=== PATIENT | female | born 1965 | race Caucasian/White ===

== ENCOUNTER 2021-03-26 19:21 | Inpatient (IN) | payer OTHER, SELFPAY ==
[2021-03-26] VITALS (8 sets, daily range): BP systolic 97–125; BP diastolic 55–80; PULSE 76–92; RESP 12–18; TEMP 36.8; O2SAT 94–99; BMI 24.9
--- NOTE | 2021-03-26 19:44 | PC.NURSE ---
pt states she would step in front of a train to kill herself, pt states I don't want to have seizures referring to withdrawing from alcohol.
--- NOTE | 2021-03-26 19:47 | PC.NURSE ---
pt is laughing and crying during triage.
--- NOTE | 2021-03-26 20:31 | PC.NURSE ---
Patient suddenly wanted to go home. Trying to walk through the [place] to leave and was quickly stopped by myself, nurse, and care management. Nurse got patient to calm down and head back into the room. Once patient calmed down, she became sick, thronging up. Nurse changed patients clothing into a clean gown. started an IV. also laisha labs. patient is very twitchy. Vitals also updated. Personal items placed in a bag outside the room.
--- NOTE | 2021-03-26 20:39 | PC.NURSE ---
Pt appears very intoxicated, unable to walk w/o great wander, very slurred speech. + nausea / dry heaves. Pt had expressed suicidal thoughts as well as depression however is to intoxicated for further evaluation. Escorted back to [facility], changed to [place], 1:1 sitter is at door.
[2021-03-26 20:43] LABS: Add Manual Diff / Slide Review NO; Basophils Absolute Auto 100 /uL (0-100); Basophils Percent Auto 1.6 % (0-2); Eosinophils Absolute Auto 0 /uL (0-450); Eosinophils Percent Auto 0.4 % (2-4); Hemoglobin 11.2 g/dL (12.0-16.0); Lymphocytes Absolute Auto 1100 /uL (1100-4500); Mean Corpuscular HGB Conc 33.9 % (30-36); Mean Corpuscular Hemoglobin 28.7 PG (26-34); Mean Corpuscular Volume 84.8 fL (80-100); Monocytes Absolute Auto 500 /uL (0-900); Monocytes Percent Auto 12.3 % (3-14); Neutrophils Absolute Auto 2500 /uL (1500-7000); Neutrophils Percent Auto 59.7 % (50-75); Platelet Count 366 X10^3/uL (150-400); Red Blood Cell Count 3.89 X10^6/uL (4.0-5.2); Red Cell Distribution Width 19.1 % (11.6-14.8); White Blood Cell Count 4.1 X10^3/uL (4.5-11.0)
--- NOTE | 2021-03-26 20:50 | PC.NURSE ---
patient is nauseas, laying at the edge of the bed. polite for me giving her a another warm blanket.
[2021-03-26] MEDS: ONDANSETRON 4 MG/2 ML INJ IV (20:55)
[2021-03-26] MEDS: PANTOPRAZOLE 40 MG VIAL IV (20:58)
[2021-03-26 21:12] LABS: Acetaminophen < 10 ug/mL (10-30); Alanine Aminotransferase 38 IU/L (<35); Albumin 4.7 g/dL (3.5-5.0); Albumin Globulin Ratio 1.6 (1.0-2.8); Alkaline Phosphatase 95 U/L (38-126); Aspartate Aminotransferase 59 IU/L (14-36); BUN Creatinine Ratio 28.6 (6-22); Bilirubin Total 0.7 mg/dL (0.2-1.3); Blood Urea Nitrogen 16 mg/dL (7-17); Calcium 8.9 mg/dL (8.4-10.2); Carbon Dioxide 20 mmol/L (22-32); Chloride 91 mmol/L (98-107); Estimated Glomerular Filt Rate > 60.0 mL/min (>60); Ethanol (ETOH) 271 mg/dL; Glucose 91 mg/dL (70-100); Lipase 92 U/L (23-300); Salicylate < 1.0 mg/dL (<20); Sodium 125 mmol/L (137-145); Total Protein 7.7 g/dL (6.3-8.2)
[2021-03-26 21:17] LABS: HEMOLYSIS 71 (0-50)
[2021-03-26 21:18] LABS: Potassium 4.5 mmol/L (3.4-5.1)
[2021-03-26 21:52] LABS: Thyroid Stimulating Hormone 4.37 uIU/mL (0.47-4.68)
[2021-03-27] VITALS (22 sets, daily range): BP systolic 91–155; BP diastolic 49–98; PULSE 69–93; RESP 16–20; TEMP 35.9–36.8; O2SAT 94–100; BMI 24.9
--- NOTE | 2021-03-27 00:26 | ED.PSYCH ---
HPI - Psych <Miguel Le DO - Last Filed: 03/27/21 23:28> General Chief Complaint: Psychiatric Symptoms Stated Complaint: wants detox Time Seen by Provider: 03/26/21 19:31 Source: patient Mode of arrival: EMS History of Present Illness HPI Narrative: Patient is a 55-year-old female who is here for evaluation of referral to alcohol detox. She states that she has had a longstanding history of alcohol abuse. She has been to rehab in the past. She has also had seizures in the past secondary to alcohol withdrawal. Over the past 4 days she has been drinking consistently. She also has a history of anxiety and depression has been using her Xanax at home in addition to the alcohol. Earlier this evening she was having suicidal thoughts relating to her drinking and the Xanax use. She called EMS who brought her to the emergency department. She states that she has not tried to hurt herself. She is asking for help with her alcohol abuse. Her last drink was just prior to arrival. Related Data Home Medications Medication Instructions Recorded Confirmed Unobtainable 03/26/21 03/26/21 Allergies Allergy/AdvReac Type Severity Reaction Status Date / Time No Allergy Information Allergy Verified 03/26/21 22:08 Available Review of Systems <DO Zainab Santacruz Last Filed: 03/27/21 23:28> Constitutional Constitutional: Denies headache(s) ENT Ears, Nose, Mouth, and Throat: Denies headache(s) Cardiovascular Comments: No chest pain Respiratory Comments: No shortness of breath Gastrointestinal Comments: No abdominal pain nausea vomiting Musculoskeletal Comments: No joint pain Integumentary/Breasts Comments: No rashes Neurologic Neurologic: Denies headache(s) Psychiatric Comments: Anxiety, suicidal thoughts relating to the alcohol use Hematologic/Lymphatic On Anticoagulants: No Patient History <DO Zainab Santacruz Last Filed: 03/27/21 23:28> Medical History Alcohol abuse Anxiety Depression Family History (Updated 03/27/21 @ 18:16 by Akua Rowe MD) Mother Hypertension Social History (Updated 03/27/21 @ 06:33 by Miguel Le DO) household members: none lives independently: Yes Smoking Status: Never smoker alcohol intake frequency: 3 or more drinks per day Exam <DO Zainab Santacruz Last Filed: 03/27/21 23:28> Initial Vital Signs Initial Vital Signs: Vital Signs Temperature 98.3 F 03/26/21 19:30 Pulse Rate 92 H 03/26/21 19:30 Respiratory Rate 18 03/26/21 19:30 Blood Pressure 125/80 03/26/21 19:30 Pulse Oximetry 99 03/26/21 19:30 Const General: cooperative, comfortable and well developed HENVA Head: normal to inspection and normocephalic Eyes General: appearance normal, both eyes and all related structures Resp Effort & Inspection: normal respiratory effort Cardio Rate: regular rate GI Inspection: normal to inspection Skin General: no rashes or lesions noted Neuro General: patient alert, patient awake and moves all extremities Extrem General: normal to inspection and capillary refill normal Psych Appearance: grossly normal and well kempt <Misti Sanabria, DO - Last Filed: 03/27/21 15:20> Initial Vital Signs Initial Vital Signs: Vital Signs Temperature 98.3 F 03/26/21 19:30 Pulse Rate 92 H 03/26/21 19:30 Respiratory Rate 18 03/26/21 19:30 Blood Pressure 125/80 03/26/21 19:30 Pulse Oximetry 99 03/26/21 19:30 Course <Miguel Le, DO - Last Filed: 03/27/21 23:28> Orders Ordered: Chlordiazepoxide HCl (Chlordiazepoxide 10 Mg Capsule) 50 mg PO Q6HR [facility] Last Admin: 03/27/21 17:46 Dose: 50 mg Documented by: SCARLETT Enoxaparin Sodium (Enoxaparin 40 Mg/0.4 Ml Syringe) 40 mg SUBCUT DAILY [facility] Fluoxetine HCl (Fluoxetine 20 Mg Capsule) 40 mg PO DAILY [facility] Folic Acid (Folic Acid 1 Mg Tablet) 1 mg PO DAILY [facility] Last Admin: 03/27/21 16:39 Dose: 1 mg Documented by: ASHA Sodium Chloride (Normal Saline 0.9%) 1,000 mls @ 100 mls/hr IV CONT [facility] Last Admin: 03/27/21 21:58 Dose: 100 mls/hr Documented by: Infusion: 03/27/21 21:58 Dose: 100 mls/hr Documented by: Admin: 03/27/21 12:45 Dose: 100 mls/hr Documented by: JEANA Lorazepam (Lorazepam 2 Mg/Ml Inj) 0 mg IV CIWAPRN PRN; Protocol PRN Reason: Alcohol Withdrawal Last Admin: 03/27/21 12:30 Dose: 1 mg Documented by: JEANA Lorazepam (Lorazepam 1 Mg Tablet) 0 mg PO CIWAPRN PRN; Protocol PRN Reason: Alcohol Withdrawal Last Admin: 03/27/21 17:00 Dose: 2 mg Documented by: Admin: 03/27/21 14:41 Dose: 1 mg Documented by: JEANA Multivitamins (Multivitamin 1 Tablet) 1 tab PO DAILY [facility] Last Admin: 03/27/21 12:06 Dose: 1 tab Documented by: JEANA Ondansetron HCl (Ondansetron 4 Mg/2 Ml Inj) 4 mg IV Q6HR PRN PRN Reason: Nausea And Vomiting Pantoprazole Sodium (Pantoprazole 40 Mg Packet) 40 mg PO DAILY@0700 [facility] Quetiapine Fumarate (Quetiapine 25 Mg Tablet) 50 mg PO BEDTIME [facility] Last Admin: 03/27/21 21:57 Dose: 50 mg Documented by: ASHA Thiamine HCl (Thiamine 100 Mg Tablet) 100 mg PO DAILY [facility] Stop: 03/30/21 09:01 Last Admin: 03/27/21 16:39 Dose: 100 mg Documented by: ASHA Discontinued Medications Chlordiazepoxide HCl (Chlordiazepoxide 10 Mg Capsule) 10 mg PO NOW ONE Stop: 03/27/21 06:27 Last Admin: 03/27/21 06:38 Dose: 10 mg Documented by: YUNG Chlordiazepoxide HCl (Chlordiazepoxide 25 Mg Capsule) 50 mg PO Q6HR [facility] Last Admin: 03/27/21 12:05 Dose: 50 mg Documented by: JEANA Ondansetron HCl (Ondansetron 4 Mg/2 Ml Inj) 4 mg IV NOW ONE Stop: 03/26/21 20:44 Last Admin: 03/26/21 20:55 Dose: 4 mg Documented by: YUNG Pantoprazole Sodium (Pantoprazole 40 Mg Vial) 40 mg IV NOW ONE Stop: 03/26/21 20:44 Last Admin: 03/26/21 20:58 Dose: 40 mg Documented by: YUNG Phenobarbital (Phenobarbital 65 Mg/Ml Vial) 130 mg IV NOW ONE Stop: 03/27/21 08:34 Last Admin: 03/27/21 08:45 Dose: 130 mg Documented by: AUCELENA Vital Signs Vital signs: Vital Signs - 8 hr 03/27/21 02:30 03/27/21 03:00 03/27/21 03:01 Pulse Rate 73 74 74 Blood Pressure 114/59 L 125/60 Pulse Oximetry 95 96 96 03/27/21 03:30 03/27/21 04:00 03/27/21 04:30 Pulse Rate 78 84 79 Blood Pressure 108/59 L 119/58 L 122/66 Pulse Oximetry 95 95 95 03/27/21 05:00 03/27/21 05:30 03/27/21 06:00 Pulse Rate 69 74 76 Blood Pressure 129/73 130/70 139/73 Pulse Oximetry 100 96 97 03/27/21 06:30 Pulse Rate 76 Blood Pressure 152/76 H Pulse Oximetry 95 <Misti Sanabria, - Last Filed: 03/27/21 15:20> Orders Ordered: Chlordiazepoxide HCl (Chlordiazepoxide 10 Mg Capsule) 50 mg PO Q6HR [facility] Last Admin: 03/27/21 17:46 Dose: 50 mg Documented by: SCARLETT Enoxaparin Sodium (Enoxaparin 40 Mg/0.4 Ml Syringe) 40 mg SUBCUT DAILY [facility] Fluoxetine HCl (Fluoxetine 20 Mg Capsule) 40 mg PO DAILY [facility] Folic Acid (Folic Acid 1 Mg Tablet) 1 mg PO DAILY [facility] Last Admin: 03/27/21 16:39 Dose: 1 mg Documented by: ASHA Sodium Chloride (Normal Saline 0.9%) 1,000 mls @ 100 mls/hr IV CONT [facility] Last Admin: 03/27/21 21:58 Dose: 100 mls/hr Documented by: Infusion: 03/27/21 21:58 Dose: 100 mls/hr Documented by: Admin: 03/27/21 12:45 Dose: 100 mls/hr Documented by: EJANA Lorazepam (Lorazepam 2 Mg/Ml Inj) 0 mg IV CIWAPRN PRN; Protocol PRN Reason: Alcohol Withdrawal Last Admin: 03/27/21 12:30 Dose: 1 mg Documented by: JEMIMAANIN Lorazepam (Lorazepam 1 Mg Tablet) 0 mg PO CIWAPRN PRN; Protocol PRN Reason: Alcohol Withdrawal Last Admin: 03/27/21 17:00 Dose: 2 mg Documented by: Admin: 03/27/21 14:41 Dose: 1 mg Documented by: JEANA Multivitamins (Multivitamin 1 Tablet) 1 tab PO DAILY [facility] Last Admin: 03/27/21 12:06 Dose: 1 tab Documented by: JEANA Ondansetron HCl (Ondansetron 4 Mg/2 Ml Inj) 4 mg IV Q6HR PRN PRN Reason: Nausea And Vomiting Pantoprazole Sodium (Pantoprazole 40 Mg Packet) 40 mg PO DAILY@0700 [facility] Quetiapine Fumarate (Quetiapine 25 Mg Tablet) 50 mg PO BEDTIME [facility] Last Admin: 03/27/21 21:57 Dose: 50 mg Documented by: ASHA Thiamine HCl (Thiamine 100 Mg Tablet) 100 mg PO DAILY [facility] Stop: 03/30/21 09:01 Last Admin: 03/27/21 16:39 Dose: 100 mg Documented by: ASHA Discontinued Medications Chlordiazepoxide HCl (Chlordiazepoxide 10 Mg Capsule) 10 mg PO NOW ONE Stop: 03/27/21 06:27 Last Admin: 03/27/21 06:38 Dose: 10 mg Documented by: YUNG Chlordiazepoxide HCl (Chlordiazepoxide 25 Mg Capsule) 50 mg PO Q6HR [facility] Last Admin: 03/27/21 12:05 Dose: 50 mg Documented by: JEANA Ondansetron HCl (Ondansetron 4 Mg/2 Ml Inj) 4 mg IV NOW ONE Stop: 03/26/21 20:44 Last Admin: 03/26/21 20:55 Dose: 4 mg Documented by: YNUG Pantoprazole Sodium (Pantoprazole 40 Mg Vial) 40 mg IV NOW ONE Stop: 03/26/21 20:44 Last Admin: 03/26/21 20:58 Dose: 40 mg Documented by: YUNG Phenobarbital (Phenobarbital 65 Mg/Ml Vial) 130 mg IV NOW ONE Stop: 03/27/21 08:34 Last Admin: 03/27/21 08:45 Dose: 130 mg Documented by: KEVIN Vital Signs Vital signs: Vital Signs - 8 hr 03/27/21 02:30 03/27/21 03:00 03/27/21 03:01 Pulse Rate 73 74 74 Blood Pressure 114/59 L 125/60 Pulse Oximetry 95 96 96 03/27/21 03:30 03/27/21 04:00 03/27/21 04:30 Pulse Rate 78 84 79 Blood Pressure 108/59 L 119/58 L 122/66 Pulse Oximetry 95 95 95 03/27/21 05:00 03/27/21 05:30 03/27/21 06:00 Pulse Rate 69 74 76 Blood Pressure 129/73 130/70 139/73 Pulse Oximetry 100 96 97 03/27/21 06:30 Pulse Rate 76 Blood Pressure 152/76 H Pulse Oximetry 95 [facility] - Psych <Miguel Sharmagal, DO - Last Filed: 03/27/21 23:28> Lab Data Attestation: I reviewed the patient's lab results. Result diagrams: 03/26/21 20:35 03/27/21 07:47 Labs: Lab Results 03/26/21 03/26/21 03/26/21 Range/Units 20:35 20:35 20:35 WBC 4.1 L (4.5-11.0) X10^3/uL RBC 3.89 L (4.0-5.2) X10^6/uL Hgb 11.2 L (12.0-16.0) g/dL Hct 33.0 L (36-46) % MCV 84.8 (80-100) fL MCH 28.7 (26-34) PG MCHC 33.9 (30-36) % RDW 19.1 H (11.6-14.8) % Plt Count 366 (150-400) X10^3/uL Neut % (Auto) 59.7 (50-75) % Lymph % (Auto) 26.0 (25-40) % Amelia % (Auto) 12.3 (3-14) % Eos % (Auto) 0.4 L (2-4) % Baso % (Auto) 1.6 (0-2) % Neut # (Auto) 2500 (7793-0869) /uL Lymph # (Auto) 1100 (1713-4651) /uL Amelia # (Auto) 500 (0-900) /uL Eos # (Auto) 0 (0-450) /uL Baso # (Auto) 100 (0-100) /uL Sodium 125 L (137-145) mmol/L Potassium 4.5 (3.4-5.1) mmol/L Chloride 91 L (98-107) mmol/L Carbon Dioxide 20 L (22-32) mmol/L BUN 16 (7-17) mg/dL Creatinine 0.56 (0.52-1.04) mg/dL Estimated GFR > 60.0 (>60) mL/min BUN/Creatinine Ratio 28.6 H (6-22) Glucose 91 (70-100) mg/dL Calcium 8.9 (8.4-10.2) mg/dL Total Bilirubin 0.7 (0.2-1.3) mg/dL AST 59 H (14-36) IU/L ALT 38 H (<35) IU/L Alkaline Phosphatase 95 (38-126) U/L Total Protein 7.7 (6.3-8.2) g/dL Albumin 4.7 (3.5-5.0) g/dL Globulin 3.0 (1.7-4.1) g/dL Albumin/Globulin Ratio 1.6 (1.0-2.8) Lipase 92 (23-300) U/L TSH 4.37 (0.47-4.68) uIU/mL Urine Color Urine Appearance Urine pH (4.5-8.0) Ur Specific [place] (1.000-1.035) Urine Protein (Negative) Urine Glucose (UA) (Negative) g/dL Urine Ketones (NEGATIVE) Urine Occult Blood (Negative) Urine Nitrate (Negative) Urine Bilirubin (NEGATIVE) Urine Urobilinogen (0.2) E.U./dL Ur Leukocyte Esterase (NEGATIVE) Urine RBC (0-5/HPF) Urine WBC (0-5/HPF) Ur Squamous Epith Cells (0-5/HPF) Urine Bacteria (None) Hyaline Casts (None) Ur Culture Indicated? Urine Test (Negative) Salicylates < 1.0 (<20) mg/dL U Opiates 300ng/mL cut (Negative) Ur Oxycodone Screen (Negative) Urine Methadone Screen (Negative) Acetaminophen < 10 L (10-30) ug/mL Ur Barbiturates Screen (Negative) U Tricyclic Antidepress (Negative) Ur Phencyclidine Scrn (Negative) Ur Amphetamines Screen (Negative) U Methamphetamines Scrn (Negative) Ur MDMA Scrn (Ecstasy) (Negative) U Benzodiazepines Scrn (Negative) Urine Cocaine Screen (Negative) U Marijuana (THC) Screen (Negative) Ethyl Alcohol 271 H ( - 10) mg/dL SARS-CoV-2 (PCR) (Negative) 03/27/21 03/27/21 03/27/21 Range/Units 00:50 00:50 00:50 WBC (4.5-11.0) X10^3/uL RBC (4.0-5.2) X10^6/uL Hgb (12.0-16.0) g/dL Hct (36-46) % MCV (80-100) fL MCH (26-34) PG MCHC (30-36) % RDW (11.6-14.8) % Plt Count (150-400) X10^3/uL Neut % (Auto) (50-75) % Lymph % (Auto) (25-40) % Amelia % (Auto) (3-14) % Eos % (Auto) (2-4) % Baso % (Auto) (0-2) % Neut # (Auto) (9646-2950) /uL Lymph # (Auto) (7932-7626) /uL Amelia # (Auto) (0-900) /uL Eos # (Auto) (0-450) /uL Baso # (Auto) (0-100) /uL Sodium (137-145) mmol/L Potassium (3.4-5.1) mmol/L Chloride (98-107) mmol/L Carbon Dioxide (22-32) mmol/L BUN (7-17) mg/dL Creatinine (0.52-1.04) mg/dL Estimated GFR (>60) mL/min BUN/Creatinine Ratio (6-22) Glucose (70-100) mg/dL Calcium (8.4-10.2) mg/dL Total Bilirubin (0.2-1.3) mg/dL AST (14-36) IU/L ALT (<35) IU/L Alkaline Phosphatase (38-126) U/L Total Protein (6.3-8.2) g/dL Albumin (3.5-5.0) g/dL Globulin (1.7-4.1) g/dL Albumin/Globulin Ratio (1.0-2.8) Lipase (23-300) U/L TSH (0.47-4.68) uIU/mL Urine Color Yellow Urine Appearance Clear Urine pH 6.0 (4.5-8.0) Ur Specific [place] 1.010 (1.000-1.035) Urine Protein 1+ H (Negative) Urine Glucose (UA) Negative (Negative) g/dL Urine Ketones Negative (NEGATIVE) Urine Occult Blood 1+ H (Negative) Urine Nitrate Negative (Negative) Urine Bilirubin Negative (NEGATIVE) Urine Urobilinogen 0.2 (0.2) E.U./dL Ur Leukocyte Esterase Negative (NEGATIVE) Urine RBC 0-1/hpf (0-5/HPF) Urine WBC 1-5/hpf (0-5/HPF) Ur Squamous Epith Cells 1-5 /hpf (0-5/HPF) Urine Bacteria Few (2-10) H (None) Hyaline Casts 1-5/lpf (None) Ur Culture Indicated? Cult not indicated Urine Test Negative (Negative) Salicylates (<20) mg/dL U Opiates 300ng/mL cut Negative (Negative) Ur Oxycodone Screen Negative (Negative) Urine Methadone Screen Negative (Negative) Acetaminophen (10-30) ug/mL Ur Barbiturates Screen Negative (Negative) U Tricyclic Antidepress Positive H (Negative) Ur Phencyclidine Scrn Negative (Negative) Ur Amphetamines Screen Negative (Negative) U Methamphetamines Scrn Negative (Negative) Ur MDMA Scrn (Ecstasy) Negative (Negative) U Benzodiazepines Scrn Positive H (Negative) Urine Cocaine Screen Negative (Negative) U Marijuana (THC) Screen Negative (Negative) Ethyl Alcohol ( - 10) mg/dL SARS-CoV-2 (PCR) (Negative) 03/27/21 03/27/21 03/27/21 Range/Units 01:43 01:57 07:47 WBC (4.5-11.0) X10^3/uL RBC (4.0-5.2) X10^6/uL Hgb (12.0-16.0) g/dL Hct (36-46) % MCV (80-100) fL MCH (26-34) PG MCHC (30-36) % RDW (11.6-14.8) % Plt Count (150-400) X10^3/uL Neut % (Auto) (50-75) % Lymph % (Auto) (25-40) % Amelia % (Auto) (3-14) % Eos % (Auto) (2-4) % Baso % (Auto) (0-2) % Neut # (Auto) (9200-8816) /uL Lymph # (Auto) (6050-7301) /uL Amelia # (Auto) (0-900) /uL Eos # (Auto) (0-450) /uL Baso # (Auto) (0-100) /uL Sodium 128 L (137-145) mmol/L Potassium 4.4 (3.4-5.1) mmol/L Chloride 94 L (98-107) mmol/L Carbon Dioxide 25 (22-32) mmol/L BUN 11 (7-17) mg/dL Creatinine 0.53 (0.52-1.04) mg/dL Estimated GFR > 60.0 (>60) mL/min BUN/Creatinine Ratio 20.8 (6-22) Glucose 81 (70-100) mg/dL Calcium 9.0 (8.4-10.2) mg/dL Total Bilirubin (0.2-1.3) mg/dL AST (14-36) IU/L ALT (<35) IU/L Alkaline Phosphatase (38-126) U/L Total Protein (6.3-8.2) g/dL Albumin (3.5-5.0) g/dL Globulin (1.7-4.1) g/dL Albumin/Globulin Ratio (1.0-2.8) Lipase (23-300) U/L TSH (0.47-4.68) uIU/mL Urine Color Urine Appearance Urine pH (4.5-8.0) Ur Specific [place] (1.000-1.035) Urine Protein (Negative) Urine Glucose (UA) (Negative) g/dL Urine Ketones (NEGATIVE) Urine Occult Blood (Negative) Urine Nitrate (Negative) Urine Bilirubin (NEGATIVE) Urine Urobilinogen (0.2) E.U./dL Ur Leukocyte Esterase (NEGATIVE) Urine RBC (0-5/HPF) Urine WBC (0-5/HPF) Ur Squamous Epith Cells (0-5/HPF) Urine Bacteria (None) Hyaline Casts (None) Ur Culture Indicated? Urine Test (Negative) Salicylates (<20) mg/dL U Opiates 300ng/mL cut (Negative) Ur Oxycodone Screen (Negative) Urine Methadone Screen (Negative) Acetaminophen (10-30) ug/mL Ur Barbiturates Screen (Negative) U Tricyclic Antidepress (Negative) Ur Phencyclidine Scrn (Negative) Ur Amphetamines Screen (Negative) U Methamphetamines Scrn (Negative) Ur MDMA Scrn (Ecstasy) (Negative) U Benzodiazepines Scrn (Negative) Urine Cocaine Screen (Negative) U Marijuana (THC) Screen (Negative) Ethyl Alcohol 149 H ( - 10) mg/dL SARS-CoV-2 (PCR) Negative (Negative) ECG Data Attestation: I personally reviewed and interpreted this ECG as follows: Interpretation: Sinus rhythm Ventricular rate 81 Normal axis Normal QRS QTC [address] T wave changes MDM Narrative Medical decision making narrative: Patient is alert oriented. Initially alcohol was elevated. She does admit that her suicidal thoughts that she was having were related to her alcohol use in the Xanax use. After being here in the emergency department for period of time she denied any suicidal ideations. She is asking for alcohol rehab. Overnight patient was not having any signs of withdrawal. Approximately 0600 hours in the morning she started feel very anxious. Will give Librium for this. Care turned over to day provider to follow up and disposition <Misti Sanabria, - Last Filed: 03/27/21 15:20> Lab Data Labs: Lab Results 03/26/21 03/26/21 03/26/21 Range/Units 20:35 20:35 20:35 WBC 4.1 L (4.5-11.0) X10^3/uL RBC 3.89 L (4.0-5.2) X10^6/uL Hgb 11.2 L (12.0-16.0) g/dL Hct 33.0 L (36-46) % MCV 84.8 (80-100) fL MCH 28.7 (26-34) PG MCHC 33.9 (30-36) % RDW 19.1 H (11.6-14.8) % Plt Count 366 (150-400) X10^3/uL Neut % (Auto) 59.7 (50-75) % Lymph % (Auto) 26.0 (25-40) % Amelia % (Auto) 12.3 (3-14) % Eos % (Auto) 0.4 L (2-4) % Baso % (Auto) 1.6 (0-2) % Neut # (Auto) 2500 (2650-4060) /uL Lymph # (Auto) 1100 (3171-6375) /uL Amelia # (Auto) 500 (0-900) /uL Eos # (Auto) 0 (0-450) /uL Baso # (Auto) 100 (0-100) /uL Sodium 125 L (137-145) mmol/L Potassium 4.5 (3.4-5.1) mmol/L Chloride 91 L (98-107) mmol/L Carbon Dioxide 20 L (22-32) mmol/L BUN 16 (7-17) mg/dL Creatinine 0.56 (0.52-1.04) mg/dL Estimated GFR > 60.0 (>60) mL/min BUN/Creatinine Ratio 28.6 H (6-22) Glucose 91 (70-100) mg/dL Calcium 8.9 (8.4-10.2) mg/dL Total Bilirubin 0.7 (0.2-1.3) mg/dL AST 59 H (14-36) IU/L ALT 38 H (<35) IU/L Alkaline Phosphatase 95 (38-126) U/L Total Protein 7.7 (6.3-8.2) g/dL Albumin 4.7 (3.5-5.0) g/dL Globulin 3.0 (1.7-4.1) g/dL Albumin/Globulin Ratio 1.6 (1.0-2.8) Lipase 92 (23-300) U/L TSH 4.37 (0.47-4.68) uIU/mL Urine Color Urine Appearance Urine pH (4.5-8.0) Ur Specific [place] (1.000-1.035) Urine Protein (Negative) Urine Glucose (UA) (Negative) g/dL Urine Ketones (NEGATIVE) Urine Occult Blood (Negative) Urine Nitrate (Negative) Urine Bilirubin (NEGATIVE) Urine Urobilinogen (0.2) E.U./dL Ur Leukocyte Esterase (NEGATIVE) Urine RBC (0-5/HPF) Urine WBC (0-5/HPF) Ur Squamous Epith Cells (0-5/HPF) Urine Bacteria (None) Hyaline Casts (None) Ur Culture Indicated? Urine Test (Negative) Salicylates < 1.0 (<20) mg/dL U Opiates 300ng/mL cut (Negative) Ur Oxycodone Screen (Negative) Urine Methadone Screen (Negative) Acetaminophen < 10 L (10-30) ug/mL Ur Barbiturates Screen (Negative) U Tricyclic Antidepress (Negative) Ur Phencyclidine Scrn (Negative) Ur Amphetamines Screen (Negative) U Methamphetamines Scrn (Negative) Ur MDMA Scrn (Ecstasy) (Negative) U Benzodiazepines Scrn (Negative) Urine Cocaine Screen (Negative) U Marijuana (THC) Screen (Negative) Ethyl Alcohol 271 H ( - 10) mg/dL SARS-CoV-2 (PCR) (Negative) 03/27/21 03/27/21 03/27/21 Range/Units 00:50 00:50 00:50 WBC (4.5-11.0) X10^3/uL RBC (4.0-5.2) X10^6/uL Hgb (12.0-16.0) g/dL Hct (36-46) % MCV (80-100) fL MCH (26-34) PG MCHC (30-36) % RDW (11.6-14.8) % Plt Count (150-400) X10^3/uL Neut % (Auto) (50-75) % Lymph % (Auto) (25-40) % Amelia % (Auto) (3-14) % Eos % (Auto) (2-4) % Baso % (Auto) (0-2) % Neut # (Auto) (4324-2691) /uL Lymph # (Auto) (8538-8796) /uL Amelia # (Auto) (0-900) /uL Eos # (Auto) (0-450) /uL Baso # (Auto) (0-100) /uL Sodium (137-145) mmol/L Potassium (3.4-5.1) mmol/L Chloride (98-107) mmol/L Carbon Dioxide (22-32) mmol/L BUN (7-17) mg/dL Creatinine (0.52-1.04) mg/dL Estimated GFR (>60) mL/min BUN/Creatinine Ratio (6-22) Glucose (70-100) mg/dL Calcium (8.4-10.2) mg/dL Total Bilirubin (0.2-1.3) mg/dL AST (14-36) IU/L ALT (<35) IU/L Alkaline Phosphatase (38-126) U/L Total Protein (6.3-8.2) g/dL Albumin (3.5-5.0) g/dL Globulin (1.7-4.1) g/dL Albumin/Globulin Ratio (1.0-2.8) Lipase (23-300) U/L TSH (0.47-4.68) uIU/mL Urine Color Yellow Urine Appearance Clear Urine pH 6.0 (4.5-8.0) Ur Specific [place] 1.010 (1.000-1.035) Urine Protein 1+ H (Negative) Urine Glucose (UA) Negative (Negative) g/dL Urine Ketones Negative (NEGATIVE) Urine Occult Blood 1+ H (Negative) Urine Nitrate Negative (Negative) Urine Bilirubin Negative (NEGATIVE) Urine Urobilinogen 0.2 (0.2) E.U./dL Ur Leukocyte Esterase Negative (NEGATIVE) Urine RBC 0-1/hpf (0-5/HPF) Urine WBC 1-5/hpf (0-5/HPF) Ur Squamous Epith Cells 1-5 /hpf (0-5/HPF) Urine Bacteria Few (2-10) H (None) Hyaline Casts 1-5/lpf (None) Ur Culture Indicated? Cult not indicated Urine Test Negative (Negative) Salicylates (<20) mg/dL U Opiates 300ng/mL cut Negative (Negative) Ur Oxycodone Screen Negative (Negative) Urine Methadone Screen Negative (Negative) Acetaminophen (10-30) ug/mL Ur Barbiturates Screen Negative (Negative) U Tricyclic Antidepress Positive H (Negative) Ur Phencyclidine Scrn Negative (Negative) Ur Amphetamines Screen Negative (Negative) U Methamphetamines Scrn Negative (Negative) Ur MDMA Scrn (Ecstasy) Negative (Negative) U Benzodiazepines Scrn Positive H (Negative) Urine Cocaine Screen Negative (Negative) U Marijuana (THC) Screen Negative (Negative) Ethyl Alcohol ( - 10) mg/dL SARS-CoV-2 (PCR) (Negative) 03/27/21 03/27/21 03/27/21 Range/Units 01:43 01:57 07:47 WBC (4.5-11.0) X10^3/uL RBC (4.0-5.2) X10^6/uL Hgb (12.0-16.0) g/dL Hct (36-46) % MCV (80-100) fL MCH (26-34) PG MCHC (30-36) % RDW (11.6-14.8) % Plt Count (150-400) X10^3/uL Neut % (Auto) (50-75) % Lymph % (Auto) (25-40) % Amelia % (Auto) (3-14) % Eos % (Auto) (2-4) % Baso % (Auto) (0-2) % Neut # (Auto) (0938-7956) /uL Lymph # (Auto) (2249-0214) /uL Amelia # (Auto) (0-900) /uL Eos # (Auto) (0-450) /uL Baso # (Auto) (0-100) /uL Sodium 128 L (137-145) mmol/L Potassium 4.4 (3.4-5.1) mmol/L Chloride 94 L (98-107) mmol/L Carbon Dioxide 25 (22-32) mmol/L BUN 11 (7-17) mg/dL Creatinine 0.53 (0.52-1.04) mg/dL Estimated GFR > 60.0 (>60) mL/min BUN/Creatinine Ratio 20.8 (6-22) Glucose 81 (70-100) mg/dL Calcium 9.0 (8.4-10.2) mg/dL Total Bilirubin (0.2-1.3) mg/dL AST (14-36) IU/L ALT (<35) IU/L Alkaline Phosphatase (38-126) U/L Total Protein (6.3-8.2) g/dL Albumin (3.5-5.0) g/dL Globulin (1.7-4.1) g/dL Albumin/Globulin Ratio (1.0-2.8) Lipase (23-300) U/L TSH (0.47-4.68) uIU/mL Urine Color Urine Appearance Urine pH (4.5-8.0) Ur Specific [place] (1.000-1.035) Urine Protein (Negative) Urine Glucose (UA) (Negative) g/dL Urine Ketones (NEGATIVE) Urine Occult Blood (Negative) Urine Nitrate (Negative) Urine Bilirubin (NEGATIVE) Urine Urobilinogen (0.2) E.U./dL Ur Leukocyte Esterase (NEGATIVE) Urine RBC (0-5/HPF) Urine WBC (0-5/HPF) Ur Squamous Epith Cells (0-5/HPF) Urine Bacteria (None) Hyaline Casts (None) Ur Culture Indicated? Urine Test (Negative) Salicylates (<20) mg/dL U Opiates 300ng/mL cut (Negative) Ur Oxycodone Screen (Negative) Urine Methadone Screen (Negative) Acetaminophen (10-30) ug/mL Ur Barbiturates Screen (Negative) U Tricyclic Antidepress (Negative) Ur Phencyclidine Scrn (Negative) Ur Amphetamines Screen (Negative) U Methamphetamines Scrn (Negative) Ur MDMA Scrn (Ecstasy) (Negative) U Benzodiazepines Scrn (Negative) Urine Cocaine Screen (Negative) U Marijuana (THC) Screen (Negative) Ethyl Alcohol 149 H ( - 10) mg/dL SARS-CoV-2 (PCR) Negative (Negative) MDM Narrative Medical decision making narrative: Patient is alert oriented. Initially alcohol was elevated. She does admit that her suicidal thoughts that she was having were related to her alcohol use in the Xanax use. After being here in the emergency department for period of time she denied any suicidal ideations. She is asking for alcohol rehab. Overnight patient was not having any signs of withdrawal. Approximately 0600 hours in the morning she started feel very anxious. Will give Librium for this. Care turned over to day provider to follow up and disposition The patient is signed out to me by Dr. Le seen evaluated her myself. She is quite anxious and having loss of shaking. She denies any hallucination but overall does not feel well and is quite restless. She is was just given a dose of Librium however I will also give her a dose of phenobarbital to see if it helps. It says she has a history of alcohol withdrawal seizures. She certainly is not medically cleared to go to detox at this time. She is no longer suicidal. Dr. rowe updated patient's symptoms test results have place Discharge Plan Departure Patient Disposition: Admitted As Inpatient Clinical Impression: Alcohol abuse with withdrawal Admit Date/Time: 03/27/21 10:33 Admit Provider: Akua Rowe
[2021-03-27 01:00] LABS: Appearance Urine UA CLEAR; Bilirubin Urine UA NEGATIVE (NEGATIVE); Color Urine UA YELLOW; Glucose Urine UA NEGATIVE (Negative); Ketones Urine UA NEGATIVE (NEGATIVE); Leukocyte Esterase Urine UA NEGATIVE (NEGATIVE); Nitrite Urine UA NEGATIVE (Negative); Occult Blood Urine UA 1+ (Negative); Protein Urine UA 1+ (Negative); Urobilinogen Urine UA 0.2 E.U./dL (0.2)
[2021-03-27 01:05] LABS: UR Morphine/Opiate cutoff 300 Negative (Negative); Ur Creatinine Normal (Normal); Ur Specific Gravity Normal (Normal); Urine Amphetamines Negative (Negative); Urine Barbiturates Negative (Negative); Urine Benzodiazepines Positive (Negative); Urine Cocaine Negative (Negative); Urine MDMA Negative (Negative); Urine Methadone Negative (Negative); Urine Methamphetamines Negative (Negative); Urine Oxycodone Negative (Negative); Urine Phencyclidine Negative (Negative); Urine Tetrahydrocannabinol Negative (Negative); Urine Tricyclic Antidepressant Positive (Negative); Urine pH Normal (Normal)
[2021-03-27 01:07] LABS: Pregnancy Test Urine Negative (Negative)
[2021-03-27 01:10] LABS: RBC Urine 0-1/HPF (0-5/HPF); Squamous Epithelial Cell Urine 1-5 /HPF (0-5/HPF); WBC Urine 1-5/HPF (0-5/HPF)
[2021-03-27 01:11] LABS: Bacteria Urine Few (2-10); Culture Indicated Urine Cult Not Indicated; Hyaline Casts Urine 1-5/LPF
[2021-03-27 02:00] LABS: Ethanol (ETOH) 149 mg/dL
--- NOTE | 2021-03-27 02:20 | PC.NURSE ---
After DR Le's re-exam with patient he gave verbal order to stop suicide precautions.
[2021-03-27 02:23] LABS: COVID19 -Nasal RAPID Negative (Negative)
[2021-03-27] MEDS: chlordiazePOXIDE 10 MG CAPSULE PO (06:38)
[2021-03-27 08:07] LABS: BUN Creatinine Ratio 20.8 (6-22); Blood Urea Nitrogen 11 mg/dL (7-17); Carbon Dioxide 25 mmol/L (22-32); Chloride 94 mmol/L (98-107); Estimated Glomerular Filt Rate > 60.0 mL/min (>60); Glucose 81 mg/dL (70-100); HEMOLYSIS < 15 (0-50); Potassium 4.4 mmol/L (3.4-5.1); Sodium 128 mmol/L (137-145)
[2021-03-27] MEDS: PHENobarbital 65 MG/ML VIAL 130 MG IV (08:45)
--- NOTE | 2021-03-27 10:57 | CM.SWNOTE ---
LIQUOR RUNNER Note LIQUOR RUNNER consult requested to assess needs of this 55 yo female, presents intoxicated last evening, BAL 271. Patient requests referral to detox, states she has been to alcohol treatment in the past. Met w/patient this morning, patient awake and alert, shaking heavily and states she is concerned about w/d seizures, as she has had them in the past. Patient further explains this is why I knew I couldn't do it (detox) at home Patient admits to drinking approx. a full bottle of Whiskey daily for weeks after a long period of sobriety. Patient also take Xanax for chronic anxiety and depression, states I went through those a little too quickly this time. Patient admitted to thoughts of SI to ED staff yesterday however no longer endorses SI or SA This LIQUOR RUNNER stops assessment to speak w/ED provider Dr Sanabria, whom now feels patient is appropriate for admission to the acute care floor for medical management through her withdrawal, due to her h/o w/d related seizures. DCP/LIQUOR RUNNER team will follow closely for assessment of need when appropriate on the acute care floor. SERGIO
[2021-03-27] MEDS: chlordiazePOXIDE 25 MG CAPSULE 50 MG PO (12:05)
[2021-03-27] MEDS: MULTIVITAMIN 1 TABLET 1 TAB PO (12:06)
[2021-03-27] MEDS: LORazepam 2 MG/ML INJ IV (12:30)
[2021-03-27] MEDS: SODIUM CHLORIDE 0.9% 1,000 ML 100 ML IV ×2 (12:45→21:58)
[2021-03-27] MEDS: LORazepam 1 MG TABLET PO ×2 (14:41→17:00)
--- NOTE | 2021-03-27 14:58 | PC.NURSE ---
Pt A&Ox3, settled into room up from ED. VSS, afebrile on RA. CIWA score initially 8, medicated with 1mg IV lorazepam with good effect. Scheduled medications administered. MD at bedside this a.m. Pt reports light sensitivity, trembling, anxious and slightly diaphoretic. Pt unable to recall last doses of medications or doseages of medications prior to admission as she reports the last two weeks I have just been drinking. She did state that she believes her pharmacy was a [facility], in [facility]. Needing dose of seroquel confirmed.
[2021-03-27] MEDS: THIAMINE 100 MG TABLET PO (16:39)
[2021-03-27] MEDS: FOLIC ACID 1 MG TABLET PO (16:39)
[2021-03-27] MEDS: chlordiazePOXIDE 10 MG CAPSULE 50 MG PO (17:46)
--- NOTE | 2021-03-27 18:13 | P.HP_ITS ---
History of Present Illness History of Present Illness Chief complaint: wants detox Narrative: Patient is a 55-year-old female who was previously living in [place] working for she will [employer] when she moved to [place] 2 weeks ago to work here. Patient reports a history of alcoholism having been in inpatient treatment many years ago. She was hospitalized body urine half ago for acute alcohol withdrawal and DTs. The patient has been drinking a 5th of whiskey for the past 2 weeks. She has been taking Xanax in addition. She has a history of depression and anxiety for which she also takes Prozac and Seroquel. In any event because of her excessive drinking the patient became frightened as she has had previous alcohol withdrawal seizures and she was concerned that she would start seizing again. She presented to the emergency room for detox. Patient was found to be quite tremulous in the ER. She was given phenobarbital in addition to a dose of Librium. She was admitted to the hospital for acute alcohol intoxication, alcohol withdrawal syndrome, and DTs. Patient History Medical History Alcohol abuse Anxiety Depression Family & Social History Family History (Updated 03/27/21 @ 18:16 by Akua Rowe MD) Mother Hypertension Family history unavailable: No Social History: household members none Prior Living Arrangements House lives independently Yes Safety & Behavioral: Feels Safe in Current Yes Environment Been Physically Hurt or No Threatened By a Person Suicidal Ideation Description None Suicide Plan Description No Plan Tobacco & Substance use: Smoking Status Never smoker alcohol intake frequency 3 or more drinks per day Meds Home Medications and Allergies Home Medications Medication Instructions Recorded Confirmed Type Unobtainable 03/26/21 03/26/21 History Allergies Allergy/AdvReac Type Severity Reaction Status Date / Time No Allergy Information Allergy Verified 03/26/21 22:08 Available Review of Systems Review of Systems Narrative: Patient reports headache, she has had no nausea or vomiting. She denies any hematemesis or melena. She has no shortness of breath or chest pain. Patient has had no dysuria hematuria pyuria. She denies any joint pains. Patient has significant shaking, she has no jaundice. Further review of systems is negative. Patient reports a 40 lb intentional weight loss. Exam Vital Signs (past 8 hours): - 03/27/21 11:10 03/27/21 14:56 03/27/21 15:11 Temperature 98.2 F 97.6 F Pulse Rate 89 93 H 93 H Respiratory Rate 16 16 16 Blood Pressure 122/49 L 155/89 H 155/89 H Pulse Oximetry 100 99 03/27/21 15:52 03/27/21 17:40 Temperature Pulse Rate 70 91 H Respiratory Rate 16 20 Blood Pressure 144/75 H 148/96 H Pulse Oximetry Oxygen Delivery Method Room Air Oxygen Flow Rate 0 Narrative Exam Narrative: Ill-appearing female lying in bed with a significant tremor, HENMT Other: HEENT: Normocephalic atraumatic, extraocular muscles are intact, oropharynx is clear with moist mucous membranes, neck is supple, there is no adenopathy or thyromegaly Lungs: Clear to auscultation Cardiac exam: Regular rate and rhythm normal S1-S2 with a soft 2/6 systolic ejection murmur Abdomen: Soft nontender nondistended, liver edge is palpated at 3 finger breaths below the right costal margin, spleen tip is palpated as well, no rebound tenderness, normal board-like rigidity Lower extremities: No edema Neuro exam: Patient is tremulous, cranial nerves are intact, strength is symmetric and equal, sensations grossly intact patient appears to have mild S directed she is not hallucinating at this time. However she is somewhat anxious, Skin exam: Multiple bruising on the lower extremities but no rashes, or edema Psychiatric exam: Patient previously was complaining of BS suicidal, when asked her about this during our exam she states she is no longer suicidal but had drank too much. She is not tearful, has no hallucinations and no delusions, she is calm and able to explain why she is here and what she hopes to gain from this hospitalization. Objective Labs Result Diagrams: 03/26/21 20:35 03/27/21 07:47 Labs: Laboratory Results - last 24 hr 03/26/21 03/26/21 03/26/21 20:35 20:35 20:35 WBC 4.1 L RBC 3.89 L Hgb 11.2 L Hct 33.0 L MCV 84.8 MCH 28.7 MCHC 33.9 RDW 19.1 H Plt Count 366 Neut % (Auto) 59.7 Lymph % (Auto) 26.0 [place] % (Auto) 12.3 Eos % (Auto) 0.4 L Baso % (Auto) 1.6 Neut # (Auto) 2500 Lymph # (Auto) 1100 [place] # (Auto) 500 Eos # (Auto) 0 Baso # (Auto) 100 Sodium 125 L Potassium 4.5 Chloride 91 L Carbon Dioxide 20 L BUN 16 Creatinine 0.56 Estimated GFR > 60.0 BUN/Creatinine Ratio 28.6 H Glucose 91 Calcium 8.9 Total Bilirubin 0.7 AST 59 H ALT 38 H Alkaline Phosphatase 95 Total Protein 7.7 Albumin 4.7 Globulin 3.0 Albumin/Globulin Ratio 1.6 Lipase 92 TSH 4.37 Urine Color Urine Appearance Urine pH Ur Specific [place] Urine Protein Urine Glucose (UA) Urine Ketones Urine Occult Blood Urine Nitrate Urine Bilirubin Urine Urobilinogen Ur Leukocyte Esterase Urine RBC Urine WBC Ur Squamous Epith Cells Urine Bacteria Hyaline Casts Ur Culture Indicated? Urine Test Salicylates < 1.0 U Opiates 300ng/mL cut Ur Oxycodone Screen Urine Methadone Screen Acetaminophen < 10 L Ur Barbiturates Screen U Tricyclic Antidepress Ur Phencyclidine Scrn Ur Amphetamines Screen U Methamphetamines Scrn Ur MDMA Scrn (Ecstasy) U Benzodiazepines Scrn Urine Cocaine Screen U Marijuana (THC) Screen Ethyl Alcohol 271 H SARS-CoV-2 (PCR) 03/27/21 03/27/21 03/27/21 00:50 00:50 00:50 WBC RBC Hgb Hct MCV MCH MCHC RDW Plt Count Neut % (Auto) Lymph % (Auto) [place] % (Auto) Eos % (Auto) Baso % (Auto) Neut # (Auto) Lymph # (Auto) [place] # (Auto) Eos # (Auto) Baso # (Auto) Sodium Potassium Chloride Carbon Dioxide BUN Creatinine Estimated GFR BUN/Creatinine Ratio Glucose Calcium Total Bilirubin AST ALT Alkaline Phosphatase Total Protein Albumin Globulin Albumin/Globulin Ratio Lipase TSH Urine Color Yellow Urine Appearance Clear Urine pH 6.0 Ur Specific [place] 1.010 Urine Protein 1+ H Urine Glucose (UA) Negative Urine Ketones Negative Urine Occult Blood 1+ H Urine Nitrate Negative Urine Bilirubin Negative Urine Urobilinogen 0.2 Ur Leukocyte Esterase Negative Urine RBC 0-1/hpf Urine WBC 1-5/hpf Ur Squamous Epith Cells 1-5 /hpf Urine Bacteria Few (2-10) H Hyaline Casts 1-5/lpf Ur Culture Indicated? Cult not indicated Urine Test Negative Salicylates U Opiates 300ng/mL cut Negative Ur Oxycodone Screen Negative Urine Methadone Screen Negative Acetaminophen Ur Barbiturates Screen Negative U Tricyclic Antidepress Positive H Ur Phencyclidine Scrn Negative Ur Amphetamines Screen Negative U Methamphetamines Scrn Negative Ur MDMA Scrn (Ecstasy) Negative U Benzodiazepines Scrn Positive H Urine Cocaine Screen Negative U Marijuana (THC) Screen Negative Ethyl Alcohol SARS-CoV-2 (PCR) 03/27/21 03/27/21 03/27/21 01:43 01:57 07:47 WBC RBC Hgb Hct MCV MCH MCHC RDW Plt Count Neut % (Auto) Lymph % (Auto) [place] % (Auto) Eos % (Auto) Baso % (Auto) Neut # (Auto) Lymph # (Auto) [place] # (Auto) Eos # (Auto) Baso # (Auto) Sodium 128 L Potassium 4.4 Chloride 94 L Carbon Dioxide 25 BUN 11 Creatinine 0.53 Estimated GFR > 60.0 BUN/Creatinine Ratio 20.8 Glucose 81 Calcium 9.0 Total Bilirubin AST ALT Alkaline Phosphatase Total Protein Albumin Globulin Albumin/Globulin Ratio Lipase TSH Urine Color Urine Appearance Urine pH Ur Specific [place] Urine Protein Urine Glucose (UA) Urine Ketones Urine Occult Blood Urine Nitrate Urine Bilirubin Urine Urobilinogen Ur Leukocyte Esterase Urine RBC Urine WBC Ur Squamous Epith Cells Urine Bacteria Hyaline Casts Ur Culture Indicated? Urine Test Salicylates U Opiates 300ng/mL cut Ur Oxycodone Screen Urine Methadone Screen Acetaminophen Ur Barbiturates Screen U Tricyclic Antidepress Ur Phencyclidine Scrn Ur Amphetamines Screen U Methamphetamines Scrn Ur MDMA Scrn (Ecstasy) U Benzodiazepines Scrn Urine Cocaine Screen U Marijuana (THC) Screen Ethyl Alcohol 149 H SARS-CoV-2 (PCR) Negative Assessment & Plan Assessment & Plan narrative: 1. 55-year-old female admitted to the hospital with acute alcohol intoxication, and evidence to suggest early alcohol withdrawal -patient at high risk for DTs given her prior history of seizures and amount of alcohol consumed -patient has been placed on a CIWA protocol, she will be started on Librium 50 mg q.6 hours, given a national shortage of Librium she likely will need to be transition to an equivalent dose of Valium in addition to her as needed IV and oral Ativan -patient is on seizure protocol and seizure precautions -at this time she does not indicate the desire for inpatient treatment, but would recommend social work consultation to discuss possible treatment 2. Depression -will continue Prozac at 40 mg per day -will continue Seroquel which was previously prescribed 50 mg at HS 3. Anxiety -Xanax on hold -patient will be treated with anxiolytics, Valium and or Ativan for withdrawal which will also treat her anxiety 4. Intentional weight loss -no further follow-up needed 5. Hyponatremia -likely related to excess free water from her significant alcohol intake -will recheck her electrolytes in the morning 6. Patient will be placed on DVT prophylaxis with Lovenox 40 mg subQ daily The patient indicates her parents are her surrogate decision makers. She requests to be a full code and will note that her record accordingly I have confirmed the patient's advanced care plan is present code status is documented in surrogate decision maker is listed I have utilized all available immediate resources to obtain, update, or review the patient's current medications
[2021-03-27] MEDS: QUETIAPINE 25 MG TABLET 50 MG PO (21:57)
--- NOTE | 2021-03-27 22:48 | PC.NURSE ---
Addendum entered by Layne Branch R.N. 03/27/21 22:49: Pt is A&OX4, able to make needs known, CIWA 12 initially with moderate tremors, beads of sweat and moderate headache. medicated with 2m po Ativan with good relief. reassess was CIWA of 6. pt calls appropriately for assistance to BR. urine needed but none since oreder placed. NS @ 100 LFA iv. pt denies current SI and is thankful for the help. No falls or injuries this shift Original Note: Pt is alerty and oriented XZ4
[2021-03-28] MEDS: chlordiazePOXIDE 10 MG CAPSULE 50 MG PO ×2 (00:24→05:25)
[2021-03-28 05:30] VITALS: BP 142/103; PULSE 67; RESP 18; TEMP 36.1; O2SAT 100
--- NOTE | 2021-03-28 05:34 | PC.NURSE ---
Patient rested in bed most of the night with no signs of agitation or anxiety. Patient woke at 0500 to use the bathroom and the patient was asking for Ativan to get more sleep. Patient had a 0600 dose of Librium scheduled. This RN discussed with the patient that we would try the schedule medication and see if that helped her symptoms. Patient agreed and the 0600 dose was given. Patient resting in bed with call light within reach and no other requests at this time.
[2021-03-28 05:54] LABS: Add Manual Diff / Slide Review NO; Basophils Absolute Auto 0 /uL (0-100); Basophils Percent Auto 1.4 % (0-2); Eosinophils Absolute Auto 100 /uL (0-450); Eosinophils Percent Auto 2.4 % (2-4); Hematocrit 36.5 % (36-46); Hemoglobin 11.9 g/dL (12.0-16.0); Lymphocytes Absolute Auto 600 /uL (1100-4500); Lymphocytes Percent Auto 29.2 % (25-40); Mean Corpuscular HGB Conc 32.6 % (30-36); Mean Corpuscular Hemoglobin 28.1 PG (26-34); Mean Corpuscular Volume 86.4 fL (80-100); Monocytes Absolute Auto 400 /uL (0-900); Monocytes Percent Auto 19.2 % (3-14); Neutrophils Absolute Auto 1100 /uL (1500-7000); Neutrophils Percent Auto 47.8 % (50-75); Platelet Count 288 X10^3/uL (150-400); Red Blood Cell Count 4.23 X10^6/uL (4.0-5.2); Red Cell Distribution Width 19.4 % (11.6-14.8); White Blood Cell Count 2.2 X10^3/uL (4.5-11.0)
[2021-03-28 05:59] LABS: Alanine Aminotransferase 35 IU/L (<35); Albumin Globulin Ratio 1.6 (1.0-2.8); Alkaline Phosphatase 81 U/L (38-126); Aspartate Aminotransferase 49 IU/L (14-36); BUN Creatinine Ratio 20.6 (6-22); Bilirubin Total 0.6 mg/dL (0.2-1.3); Blood Urea Nitrogen 13 mg/dL (7-17); Carbon Dioxide 27 mmol/L (22-32); Chloride 101 mmol/L (98-107); Estimated Glomerular Filt Rate > 60.0 mL/min (>60); Globulin 2.5 g/dL (1.7-4.1); Glucose 94 mg/dL (70-100); HEMOLYSIS < 15 (0-50); Potassium 4.2 mmol/L (3.4-5.1); Sodium 132 mmol/L (137-145); Total Protein 6.5 g/dL (6.3-8.2)
[2021-03-28] MEDS: PANTOPRAZOLE 40 MG **PACKET PO (06:45)
[2021-03-28] MEDS: SODIUM CHLORIDE 0.9% 1,000 ML 100 ML IV ×2 (06:49→17:34)
[2021-03-28 07:35] VITALS: BP 132/91; PULSE 64; RESP 14; TEMP 36.6; O2SAT 99
[2021-03-28] MEDS: THIAMINE 100 MG TABLET PO (09:06)
[2021-03-28] MEDS: ENOXAPARIN 40 MG/0.4 ML SYRINGE SUBCUT (09:06)
[2021-03-28] MEDS: FOLIC ACID 1 MG TABLET PO (09:06)
[2021-03-28] MEDS: FLUoxetine 20 MG CAPSULE 40 MG PO (09:06)
[2021-03-28] MEDS: MULTIVITAMIN 1 TABLET 1 TAB PO (09:06)
[2021-03-28 11:28] VITALS: BP 125/78; PULSE 85; RESP 12; TEMP 36.6; O2SAT 97
--- NOTE | 2021-03-28 11:50 | P.PN_ITS ---
Subjective Subjective Date Patient Seen: 03/28/21 Time Patient Seen: 11:50 Interval history: This is a 55-year-old female admitted with alcohol withdrawal. She is still quite shaky today, but feeling much improved. She was able to tolerate a diet. She had a difficult time sleeping last night due to tremors and diaphoresis. Exam Vital Signs (past 8 hours): - 03/28/21 05:30 03/28/21 07:35 Temperature 97.0 F L 97.8 F Pulse Rate 67 64 Respiratory Rate 18 14 Blood Pressure 142/103 H 132/91 H Pulse Oximetry 100 99 Oxygen Delivery Method Room Air Oxygen Flow Rate 0 Narrative Exam Narrative: Exam Narrative: Ill-appearing female lying in bed with a significant tremor, HEENT: Normocephalic atraumatic, extraocular muscles are intact, oropharynx is clear with moist mucous membranes, neck is supple, there is no adenopathy or thyromegaly Lungs: Clear to auscultation Cardiac exam: Regular rate and rhythm normal S1-S2 with a soft 2/6 systolic ejection murmur Abdomen: Soft nontender nondistended. Lower extremities: No edema Neuro exam: Patient is tremulous though improved, minimal tongue fasciculations. cranial nerves are intact, strength is symmetric and equal, sensations grossly intact patient. Skin exam: Multiple bruising on the lower extremities but no rashes, or edema Psychiatric exam: Denies hallucinations, no SI or HI today Objective Labs Result Diagrams: 03/28/21 05:43 03/28/21 05:43 Labs: Laboratory Results - last 24 hr 03/28/21 03/28/21 05:43 05:43 WBC 2.2 L RBC 4.23 Hgb 11.9 L Hct 36.5 MCV 86.4 MCH 28.1 MCHC 32.6 RDW 19.4 H Plt Count 288 Neut % (Auto) 47.8 L Lymph % (Auto) 29.2 [place] % (Auto) 19.2 H Eos % (Auto) 2.4 Baso % (Auto) 1.4 Neut # (Auto) 1100 L Lymph # (Auto) 600 L [place] # (Auto) 400 Eos # (Auto) 100 Baso # (Auto) 0 Sodium 132 L Potassium 4.2 Chloride 101 Carbon Dioxide 27 BUN 13 Creatinine 0.63 Estimated GFR > 60.0 BUN/Creatinine Ratio 20.6 Glucose 94 Calcium 9.0 Total Bilirubin 0.6 AST 49 H ALT 35 H Alkaline Phosphatase 81 Total Protein 6.5 Albumin 4.0 Globulin 2.5 Albumin/Globulin Ratio 1.6 [facility] Medical History Alcohol abuse Anxiety Depression Family History (Updated 03/27/21 @ 18:16 by Akua Rowe MD) Mother Hypertension Social History (Updated 03/27/21 @ 06:33 by Miguel Le DO) household members: none lives independently: Yes Smoking Status: Never smoker Assessment & Plan Assessment & Plan narrative: 1. 55-year-old female admitted to the hospital with acute alcohol intoxication and now withdrawal. -patient at high risk for DTs given her prior history of seizures and amount of alcohol consumed -patient has been placed on a CIWA protocol, she was started on Librium 50 mg q.6 hours, given a national shortage of Librium she likely will need to be transition to an equivalent dose of Valium in addition to her as needed IV and oral Ativan at some point. But can decrease to 30q6 today to try and prolong availability for now. -patient is on seizure protocol and seizure precautions -she would like inpatient treatment she states today, social work to consult. 2. Depression -will continue Prozac at 40 mg per day -will continue Seroquel which was previously prescribed 50 mg at HS 3. Anxiety -Xanax on hold -patient will be treated with anxiolytics, Valium and or Ativan for withdrawal which will also treat her anxiety 4. Intentional weight loss -no further follow-up needed 5. Hyponatremia -likely related to EtOH, has improved thus far to 132 since admission. 6. Patient will be placed on DVT prophylaxis with Lovenox 40 mg subQ daily The patient indicates her parents are her surrogate decision makers. She requests to be a full code and will note that her record accordingly I have confirmed the patient's advanced care plan is present code status is documented in surrogate decision maker is listed I have utilized all available immediate resources to obtain, update, or review the patient's current medications
--- NOTE | 2021-03-28 11:55 | PC.NURSE ---
Patient had her dose of librium at 0600, she states that she is feeling better today. She is unsteady on her feet and ambulating with the walker. Ivf infusing through iv, and patient is tolerating this well. CIWA is a 5, as patient is having some hand and arm tremors and she is sweating. Resting now in bed, she will have some more medications at 1200.
[2021-03-28] MEDS: chlordiazePOXIDE 10 MG CAPSULE 30 MG PO ×2 (12:43→17:34)
--- NOTE | 2021-03-28 15:28 | CM.DPC ---
DCP Cont: Per MD, pt currently sleeping and seems to be improving in her withdrawal from ETOH currently and still getting Librium taper. Pt recently moved to [place] about 2 weeks and is working at the [employer]. Pt has hx of depression and anxiety and prescribed medication to assist and has hx of withdrawal from ETOH with seizures and DT's. Pt drinks about a 5th of whiskey a day. SW called [facility] and inquired about bed availability and discussed pt and due to pt's low need for medication management for withdrawal symptoms then their MD would likely not accept since pt is not very acute currently. SW met bedside with pt and explained role and pt quite sleepy but able to answer questions. Pt confirms that she is interested in treatment but clarifies I know what I need to do, I just have to do it and pt firmly states she does not want Inpt [facility] tx but is very appreciative of outpt [facility] resources. SW printed off but ran out of time to give to pt bedside today. SW discussed checking in with her tomorrow to confirm she still does not want Inpt tx and pt states because I'm new to my job I just can't do Inpt tx at this time and I think I will do well with outpt tx services. Plan: SW to follow closely for providing the printed list of outpt [facility] resources and confirming safe d/c plan home once medically stable. CHANDLER Saldaña
[2021-03-28 15:30] VITALS: BP 133/95; BP 145/105; PULSE 81; PULSE 82; RESP 20; TEMP 36.7; O2SAT 98
[2021-03-28 20:00] VITALS: BP 142/90; PULSE 68; RESP 20; TEMP 36.5; O2SAT 98
[2021-03-28] MEDS: QUETIAPINE 25 MG TABLET 50 MG PO (21:11)
[2021-03-29] VITALS: BP 133/91; PULSE 61; RESP 16; TEMP 36.1; O2SAT 98
[2021-03-29] MEDS: chlordiazePOXIDE 10 MG CAPSULE 30 MG PO ×2 (00:09→06:40)
[2021-03-29] MEDS: SODIUM CHLORIDE 0.9% 1,000 ML 100 ML IV (03:48)
[2021-03-29 04:00] VITALS: BP 154/64; PULSE 70; RESP 16; TEMP 36.1; O2SAT 100
[2021-03-29] MEDS: PANTOPRAZOLE DR 40 MG TABLET PO (06:42)
[2021-03-29 07:57] VITALS: BP 133/95; PULSE 64; RESP 16; TEMP 36.2; O2SAT 96
[2021-03-29] MEDS: FOLIC ACID 1 MG TABLET PO (08:01)
[2021-03-29] MEDS: ENOXAPARIN 40 MG/0.4 ML SYRINGE SUBCUT (08:01)
[2021-03-29] MEDS: THIAMINE 100 MG TABLET PO (08:01)
[2021-03-29] MEDS: MULTIVITAMIN 1 TABLET 1 TAB PO (08:01)
[2021-03-29] MEDS: FLUoxetine 20 MG CAPSULE 40 MG PO (08:01)
--- NOTE | 2021-03-29 11:37 | PC.NURSE ---
Patient is doing better this am she states. just in and saw patient, he is going to discharge her to home. She is more steady with the walker today and her ciwa scale is a 1. She has only had sweats, and states that her bedding was changed twice last night, sweating is minimal today.
--- NOTE | 2021-03-29 12:53 | P.DS_ITS ---
History of Present Illness History of Present Illness Date Patient Seen: 03/29/21 Time Patient Seen: 12:53 Chief complaint: wants detox Narrative: Per Dr. Rowe, Patient is a 55-year-old female who was previously living in [place] working for she will [employer] when she moved to [place] 2 weeks ago to work here. Patient reports a history of alcoholism having been in inpatient treatment many years ago. She was hospitalized body urine half ago for acute alcohol withdrawal and DTs. The patient has been drinking a 5th of whiskey for the past 2 weeks. She has been taking Xanax in addition. She has a history of depression and anxiety for which she also takes Prozac and Seroquel. In any event because of her excessive drinking the patient became frightened as she has had previous alcohol withdrawal seizures and she was concerned that she would start seizing again. She presented to the emergency room for detox. Patient wa s found to be quite tremulous in the ER. She was given phenobarbital in addition to a dose of Librium. She was admitted to the hospital for acute alcohol intoxication, alcohol withdrawal syndrome, and DTs. Discharge Providers Provider Date of admission: 03/27/21 10:33 Discharge Date: 03/29/21 Consults: 03/26/21 19:32 Consult to [facility] - Wet Washer Machine Stat Comment: [employer]PER[employer] ENGINEER Consult: Behavioral Health Assess 03/27/21 07:04 Consult to [facility] - Wet Washer Machine Stat Comment: detox and SI [employer] ENGINEER Consult: Behavioral Health Assess 03/27/21 11:44 Consult to Dietitian, Adult Routine Comment: Reason For Exam: alcoholic Discharge provider: Fazal Toribio DO Summary Hospital Course Discharge Diagnosis: 1. Alcohol withdrawal, acute, present on admission 2. Depression, chronic 3. Anxiety, chronic 4. Intentional weight loss 5. Hyponatremia, acute, possibly on chronic Hospital Course: This is a 55-year-old female who was admitted to the hospital with acute alcoholic intoxication and subsequent alcohol withdrawal. Patient was high risk given her previous DTs and seizures. She was initially quite tremulous despite oral Librium, however this improved over the course of her admission. She was ultimately tapered off of her Librium rather quickly given a national shortage of the drug, though the patient did well and on the day of admission she had minimal withdrawal symptoms. She did not feel like she needed any further medical management as an outpatient including gabapentin or Librium. She was not interested in any alcohol cessation resources at this time. She initially expressed some suicidal ideation while intoxicated, however this was denied when she was more sober and continued to be denied throughout the course of her admission. She had mild hyponatremia which was likely related to d ehydration and chronic alcohol intake which improved over the course of her admission. Time Spent with Patient Time spent: Greater than 30 minutes Exam Vital Signs (past 8 hours): - 03/29/21 07:57 Temperature 97.2 F L Pulse Rate 64 Respiratory Rate 16 Blood Pressure 133/95 H Pulse Oximetry 96 Oxygen Delivery Method Room Air Oxygen Flow Rate 0 Narrative Exam Narrative: Exam Narrative: WDWN female in no acute distress HEENT: Normocephalic atraumatic, extraocular muscles are intact, oropharynx is clear with moist mucous membranes, neck is supple, there is no adenopathy or thyromegaly Lungs: Clear to auscultation bilaterally. Cardiac exam: Regular rate and rhythm normal S1-S2 with a soft 2/6 systolic ejection murmur Abdomen: Soft nontender nondistended. Lower extremities: No edema Neuro exam: Patient is no longer tremulous, no tongue fasciculations. cranial nerves are intact, strength is symmetric and equal, sensations grossly intact patient. Skin exam: Multiple bruising on the lower extremities but no rashes, or edema Psychiatric exam: Denies hallucinations, no SI or HI today Objective Labs Result Diagrams: 03/28/21 05:43 03/28/21 05:43 [facility] Medical History Alcohol abuse Anxiety Depression Family History (Updated 03/27/21 @ 18:16 by Akua Rowe MD) Mother Hypertension Social History (Updated 03/27/21 @ 06:33 by Miguel Le DO) household members: none lives independently: Yes Smoking Status: Never smoker Discharge Plan Discharge Plan Patient Disposition: Home Provider Discharge Comment: You were admitted to the hospital for alcohol withdrawal. You improved with treatments. You did not wish for further treatment at this time. If you develop worsening shaking do not hesitate to call and we can try to send you a prescription for more withdrawal treatments to take at home. Discharge orders & Medications Prescriptions: Continued fluoxetine 40 mg Capsule 40 mg PO QAM RF: 0 quetiapine [Seroquel] 100 mg Tablet 100 mg PO BEDTIME RF: 0 Diet/Activity/Treatments Diet: Diet as Tolerated Activity: As tolerated Visit Report/Discharge Packet Instructions: Alcohol and Stress: There are Safer Ways to [place], DI for Alcohol Use Disorder, Drug and Alcohol Withdrawal
--- NOTE | 2021-03-29 13:13 | CM.DPC ---
DCP: continued: pt now with a d/c to home and is going over paperwork with LUCAS Limon. Provided her with the list of out-patient alcohol treatment options that were left for her by CHANDLER Doss. She aknowledged her prior discussion with [facility] and expressed appeciation for the resources.
[2021-03-31 08:16] LABS: Osmolality, Serum 282 mOsmol/kg (275-295)
[2021-03-31 08:16] LABS: Osmolality Urine 464 mOsmol/kg (.)
== END 2021-03-29 13:20 | disposition home or self-care (01) | DRG 897 ==
LOC: ED 03-27 10:24 → AC 03-27 10:33
PROVIDERS: Emergency Medicine; Admitting Provider Internal Medicine; Emergency Provider Emergency Medicine; Referring Provider Emergency Medicine; Visit Provider Internal Medicine
DX: F10.139 Alcohol abuse with withdrawal, unspecified (principal); E87.1 Hypo-osmolality and hyponatremia; R45.851 Suicidal ideations; E86.0 Dehydration; Y90.8 Blood alcohol level of 240 mg/100 ml or more; F32.9 Major depressive disorder, single episode, unspecified; F41.9 Anxiety disorder, unspecified; Z20.822 Contact with and (suspected) exposure to COVID-19
CPT/HCPCS: 36415; 36592; 80048; 80053; 80305; 80320; 80329; 81001; 81025; 83690; 83930; 83935; 84443; 85025; 87635; 93005; 93010; 96374; 96375; 99285; C9803; C9113; G0480; J1650; J2060; J2405; J2560

== ENCOUNTER 2021-04-09 12:39 | Emergency (ER) | payer OTHER, SELFPAY ==
[2021-03-27 10:56] VITALS: BMI 24.9
[2021-04-09 12:42] VITALS: BP 169/112; PULSE 132; O2SAT 98
[2021-04-09 12:49] VITALS: O2SAT 92
[2021-04-09 12:56] VITALS: BP 179/88
[2021-04-09 13:00] VITALS: BP 157/89; BP 169/112; PULSE 104; RESP 20; TEMP 37.1; O2SAT 99
--- NOTE | 2021-04-09 13:05 | ED_ITS ---
HPI - Alcohol <Madalyn Lagos PA-C - Last Filed: 04/13/21 09:35> General Chief Complaint: Toxicology Problem Stated Complaint: ETOH intoxication Time Seen by Provider: 04/09/21 12:44 Source: patient Mode of arrival: EMS Limitations: other (under influence of alcohol) History of Present Illness HPI narrative: 55-year-old woman with a history depression, alcoholism presents with concern for wanting detox. Brought in by ambulance. Patient states ?I have been drinking 2 fifths of whiskey every day for the past couple of weeks?. Patient states that prior to that she really was not drinking very much, she says she works at the [employer] and they test regularly. She says she has been to detox before 10 years ago, she states ?I don't want to before my parents do, it would break their hearts so I want to get detox?. She states she is taking her regular medications, she feels nauseous and she feels like her heart is going a little fast but otherwise feels okay. She does say she has had severe withdrawal symptoms previously. Denies any other complaints or concerns. She is agreeable to staying in the emergency department for evaluation and placement and understands that she needs to behave appropriately. MD complaint: alcohol intoxication, alcohol withdrawal, desires rehab and medical clearance for detox facility Last drink: hours (ago) (12) Amount of alcohol consumed: two 5ths of whiskey a day Previous visits for alcohol intoxication: Yes Recent trauma: No Associated symptoms: nausea Treatments prior to arrival: none Related Data Home Medications Medication Instructions Recorded Confirmed fluoxetine 40 mg capsule 40 mg PO QAM 03/28/21 03/28/21 quetiapine 100 mg tablet (Seroquel) 100 mg PO BEDTIME 03/28/21 03/28/21 Allergies Allergy/AdvReac Type Severity Reaction Status Date / Time No Allergy Information Allergy Verified 03/26/21 22:08 Available Review of Systems <Madalyn Lagos PA-C - Last Filed: 04/13/21 09:35> Review of Systems ROS Unobtainable: All systems reviewed & are unremarkable except as noted in HPI and below Patient History <Madalyn Lagos PA-C - Last Filed: 04/13/21 09:35> Medical History Alcohol abuse Anxiety Depression Family History Mother Hypertension Social History household members: none lives independently: Yes Smoking Status: Never smoker Smoking Status: Never smoker alcohol intake frequency: 3 or more drinks per day Exam <Madalyn Lagos PA-C - Last Filed: 04/13/21 09:35> Narrative Exam Narrative: GENERAL: [55] year old patient appears stated age. Well-nourished, well- developed patient, in mild distress, lying on her side curled up on ED bed, cooperative with exam. HEAD: Atraumatic. Normocephalic. EYES: Pupils equal round and reactive. Extraocular motions intact. No scleral i cterus. No injection or drainage. ENT: Nose without bleeding, purulent drainage. Throat without erythema, tonsillar hypertrophy or exudate. Airway patent. NECK: Trachea midline. Non tender CARDIOVASCULAR: rapid and Regular rate and rhythm without murmurs, gallops, or rubs. RESPIRATORY: Clear to auscultation. Breath sounds equal bilaterally. No wheezes, rales, or rhonchi. GASTROINTESTINAL: Abdomen soft, non-tender, nondistended. EXTREMITIES: No edema or joint tenderness. BACK: Nontender without deformity or crepitance. No flank tenderness. NEURO: AOx3. SKIN: No rash or erythema of visible areas Initial Vital Signs Initial Vital Signs: Vital Signs Pulse Rate 132 H 04/09/21 12:42 Blood Pressure 169/112 H 04/09/21 12:42 Pulse Oximetry 98 04/09/21 12:42 <Dante Aden DO - Last Filed: 04/13/21 13:22> Initial Vital Signs Initial Vital Signs: Vital Signs Pulse Rate 132 H 04/09/21 12:42 Blood Pressure 169/112 H 04/09/21 12:42 Pulse Oximetry 98 04/09/21 12:42 Course <Madalyn Lagos PA-C - Last Filed: 04/13/21 09:35> Course Course Narrative: Patient took offense to something her RN said and got out of bed and ran around the ED screaming ?were all going to , were all going to ?. After going back to her bed she was evaluated and discussed appropriate behavior she is desiring to stay and get evaluated in placed for detox and is willing to stay in her room and behave appropriately. 12:57 RN reports her see while was 6, did order 1mg of p.o. Ativan for her. On chart review I note patient was seen in the emergency department last week for similar symptoms, at that time she was admitted to the hospital here 13:30 Patient was fully dressed with her backpack on and had on in the hallway trying to find her way out, RN found her and asked her what was going on she says she wants to go home she does not want to stay in the emergency department. She is alert oriented well-appearing asking for a taxi ride I talked to the patient myself and she said she definitely does not want to stay, given that we have already started workup and evaluation on her this will be an Against Medical Advice however I do not feel we need to hold her against her will. 15:02 Orders Ordered: Discontinued Medications Lorazepam (Lorazepam 0.5 Mg Tablet) 1 mg PO NOW ONE Stop: 04/09/21 13:40 Last Admin: 04/09/21 13:43 Dose: 1 mg Documented by: KEVIN Ondansetron HCl (Ondansetron 4 Mg/2 Ml Inj) 4 mg IV NOW ONE Stop: 04/09/21 13:09 Last Admin: 04/09/21 13:33 Dose: Not Given Documented by: KEVIN Ondansetron HCl (Ondansetron 4 Mg Odt) 4 mg SL NOW ONE Stop: 04/09/21 13:27 Last Admin: 04/09/21 13:33 Dose: 4 mg Documented by: KEVIN Vital Signs Vital signs: Vital Signs - 8 hr 04/09/21 12:42 04/09/21 12:49 04/09/21 12:56 Temperature Pulse Rate 132 H Respiratory Rate Blood Pressure 169/112 H 179/88 H Pulse Oximetry 98 92 04/09/21 13:00 04/09/21 13:27 04/09/21 13:30 Temperature 98.7 F Pulse Rate 104 H 70 110 H Respiratory Rate 20 Blood Pressure 157/89 H 149/89 H Pulse Oximetry 99 97 94 <Dante Aden, DO - Last Filed: 04/13/21 13:22> Orders Ordered: Discontinued Medications Lorazepam (Lorazepam 0.5 Mg Tablet) 1 mg PO NOW ONE Stop: 04/09/21 13:40 Last Admin: 04/09/21 13:43 Dose: 1 mg Documented by: KEVIN Ondansetron HCl (Ondansetron 4 Mg/2 Ml Inj) 4 mg IV NOW ONE Stop: 04/09/21 13:09 Last Admin: 04/09/21 13:33 Dose: Not Given Documented by: KEVIN Ondansetron HCl (Ondansetron 4 Mg Odt) 4 mg SL NOW ONE Stop: 04/09/21 13:27 Last Admin: 04/09/21 13:33 Dose: 4 mg Documented by: KEVIN Vital Signs Vital signs: Vital Signs - 8 hr 04/09/21 12:42 04/09/21 12:49 04/09/21 12:56 Temperature Pulse Rate 132 H Respiratory Rate Blood Pressure 169/112 H 179/88 H Pulse Oximetry 98 92 04/09/21 13:00 04/09/21 13:27 04/09/21 13:30 Temperature 98.7 F Pulse Rate 104 H 70 110 H Respiratory Rate 20 Blood Pressure 157/89 H 149/89 H Pulse Oximetry 99 97 94 MDM - Alcohol <Madalyn Lagos PA-C - Last Filed: 04/13/21 09:35> Differential Diagnosis Differential diagnosis: Likely alcohol intoxication, other (desires detox, Left AMA) and alcohol withdrawal syndrome Medical Records Attestation: I reviewed the patient's medical records. Lab Data Result diagrams: 04/09/21 14:04 04/09/21 14:04 Labs: Lab Results 04/09/21 04/09/21 04/09/21 Range/Units 13:27 14:04 14:04 WBC 3.7 L (4.5-11.0) X10^3/uL RBC 4.56 (4.0-5.2) X10^6/uL Hgb 12.7 (12.0-16.0) g/dL Hct 37.6 (36-46) % MCV 82.4 (80-100) fL MCH 27.8 (26-34) PG MCHC 33.7 (30-36) % RDW 20.1 H (11.6-14.8) % Plt Count 454 H (150-400) X10^3/uL Neut % (Auto) 69.2 (50-75) % Lymph % (Auto) 15.3 L (25-40) % [place] % (Auto) 14.1 H (3-14) % Eos % (Auto) 0.4 L (2-4) % Baso % (Auto) 1.0 (0-2) % Neut # (Auto) 2600 (6549-2362) /uL Lymph # (Auto) 600 L (5218-2111) /uL [place] # (Auto) 500 (0-900) /uL Eos # (Auto) 0 (0-450) /uL Baso # (Auto) 0 (0-100) /uL RBC Morphology See below Hypochromasia 1+ H Anisocytosis 2+ H Sodium 131 L (137-145) mmol/L Potassium 4.6 (3.4-5.1) mmol/L Chloride 89 L (98-107) mmol/L Carbon Dioxide 24 (22-32) mmol/L BUN 17 (7-17) mg/dL Creatinine 0.74 (0.52-1.04) mg/dL Estimated GFR > 60.0 (>60) mL/min BUN/Creatinine Ratio 23.0 H (6-22) Glucose 87 (70-100) mg/dL Calcium 12.5 H (8.4-10.2) mg/dL Magnesium 1.5 L (1.6-2.3) mg/dL Total Bilirubin 1.0 (0.2-1.3) mg/dL AST 80 H (14-36) IU/L ALT 48 H (<35) IU/L Alkaline Phosphatase 122 (38-126) U/L Total Protein 8.3 H (6.3-8.2) g/dL Albumin 5.1 H (3.5-5.0) g/dL Globulin 3.2 (1.7-4.1) g/dL Albumin/Globulin Ratio 1.6 (1.0-2.8) Lipase 93 (23-300) U/L Urine RBC (0-5/HPF) Urine WBC (0-5/HPF) Ur Squamous Epith Cells (0-5/HPF) Ur Transition Epith Cell (0-5/HPF) Ur Renal Epithelial Cell (0-1/HPF) Urine Bacteria (None) Hyaline Casts (None) Ur Culture Indicated? U Opiates 300ng/mL cut (Negative) Ur Oxycodone Screen (Negative) Urine Methadone Screen (Negative) Ur Barbiturates Screen (Negative) U Tricyclic Antidepress (Negative) Ur Phencyclidine Scrn (Negative) Ur Amphetamines Screen (Negative) U Methamphetamines Scrn (Negative) Ur MDMA Scrn (Ecstasy) (Negative) U Benzodiazepines Scrn (Negative) Urine Cocaine Screen (Negative) U Marijuana (THC) Screen (Negative) Ethyl Alcohol 277 H ( - 10) mg/dL SARS-CoV-2 (PCR) Negative (Negative) 04/09/21 04/09/21 Range/Units 14:25 14:29 WBC (4.5-11.0) X10^3/uL RBC (4.0-5.2) X10^6/uL Hgb (12.0-16.0) g/dL Hct (36-46) % MCV (80-100) fL MCH (26-34) PG MCHC (30-36) % RDW (11.6-14.8) % Plt Count (150-400) X10^3/uL Neut % (Auto) (50-75) % Lymph % (Auto) (25-40) % [place] % (Auto) (3-14) % Eos % (Auto) (2-4) % Baso % (Auto) (0-2) % Neut # (Auto) (6362-1605) /uL Lymph # (Auto) (7636-4905) /uL [place] # (Auto) (0-900) /uL Eos # (Auto) (0-450) /uL Baso # (Auto) (0-100) /uL RBC Morphology Hypochromasia Anisocytosis Sodium (137-145) mmol/L Potassium (3.4-5.1) mmol/L Chloride (98-107) mmol/L Carbon Dioxide (22-32) mmol/L BUN (7-17) mg/dL Creatinine (0.52-1.04) mg/dL Estimated GFR (>60) mL/min BUN/Creatinine Ratio (6-22) Glucose (70-100) mg/dL Calcium (8.4-10.2) mg/dL Magnesium (1.6-2.3) mg/dL Total Bilirubin (0.2-1.3) mg/dL AST (14-36) IU/L ALT (<35) IU/L Alkaline Phosphatase (38-126) U/L Total Protein (6.3-8.2) g/dL Albumin (3.5-5.0) g/dL Globulin (1.7-4.1) g/dL Albumin/Globulin Ratio (1.0-2.8) Lipase (23-300) U/L Urine RBC 1-5/hpf (0-5/HPF) Urine WBC 0-1/hpf (0-5/HPF) Ur Squamous Epith Cells 1-5 /hpf (0-5/HPF) Ur Transition Epith Cell 0-1/hpf (0-5/HPF) Ur Renal Epithelial Cell 0-1/hpf (0-1/HPF) Urine Bacteria None seen (None) Hyaline Casts 1-5/lpf (None) Ur Culture Indicated? Cult not indicated U Opiates 300ng/mL cut Negative (Negative) Ur Oxycodone Screen Negative (Negative) Urine Methadone Screen Negative (Negative) Ur Barbiturates Screen Negative (Negative) U Tricyclic Antidepress Negative (Negative) Ur Phencyclidine Scrn Negative (Negative) Ur Amphetamines Screen Negative (Negative) U Methamphetamines Scrn Negative (Negative) Ur MDMA Scrn (Ecstasy) Negative (Negative) U Benzodiazepines Scrn Positive H (Negative) Urine Cocaine Screen Negative (Negative) U Marijuana (THC) Screen Negative (Negative) Ethyl Alcohol ( - 10) mg/dL SARS-CoV-2 (PCR) (Negative) Point of Care Testing Test Results Negative Urine Dip Bedside Urine Glucose Negative Bedside Urine Bilirubin - Negative Bedside Urine Ketone +/- 5 Urine Specific [place] 1.020 Bedside Urine Occult Blood ++ Bedside Urine pH 6.0 Bedside Urine Protein +/- 15 Bedside Urine Urobilinogen - Negative Bedside Urine Nitrite - Negative Bedside Urine Leukocytes - Negative Esterase MDM Narrative Medical decision making narrative: 55 yo F presents via EMS wanting detox. Initially endorses wanting evaluation and clearance for detox from alcohol, and cooperative with exam. Prior to being seen by provider pt ran around ED shouting before being brought back to her room and cooperating. She is cooperative with exam and endorses plan to stay for medical clearance and requests assistance with detox. However prior to evaluation by social work pt was found fully dressed with back pack on in hallway looking for the ED exit. Pt endorsed that she no longer wanted help with detox and she wanted to leave. Pt ambulatory and behaving appropriately and not presenting a threat to self or a threat to others. She is advised she will be leaving against medical advice by RN and pt leaves through ED exit. Unknown if pt was able to sign paperwork for AMA. <Dante Aden, DO - Last Filed: 04/13/21 13:22> Lab Data Labs: Lab Results 04/09/21 04/09/21 04/09/21 Range/Units 13:27 14:04 14:04 WBC 3.7 L (4.5-11.0) X10^3/uL RBC 4.56 (4.0-5.2) X10^6/uL Hgb 12.7 (12.0-16.0) g/dL Hct 37.6 (36-46) % MCV 82.4 (80-100) fL MCH 27.8 (26-34) PG MCHC 33.7 (30-36) % RDW 20.1 H (11.6-14.8) % Plt Count 454 H (150-400) X10^3/uL Neut % (Auto) 69.2 (50-75) % Lymph % (Auto) 15.3 L (25-40) % [place] % (Auto) 14.1 H (3-14) % Eos % (Auto) 0.4 L (2-4) % Baso % (Auto) 1.0 (0-2) % Neut # (Auto) 2600 (4290-5259) /uL Lymph # (Auto) 600 L (4582-4244) /uL [place] # (Auto) 500 (0-900) /uL Eos # (Auto) 0 (0-450) /uL Baso # (Auto) 0 (0-100) /uL RBC Morphology See below Hypochromasia 1+ H Anisocytosis 2+ H Sodium 131 L (137-145) mmol/L Potassium 4.6 (3.4-5.1) mmol/L Chloride 89 L (98-107) mmol/L Carbon Dioxide 24 (22-32) mmol/L BUN 17 (7-17) mg/dL Creatinine 0.74 (0.52-1.04) mg/dL Estimated GFR > 60.0 (>60) mL/min BUN/Creatinine Ratio 23.0 H (6-22) Glucose 87 (70-100) mg/dL Calcium 12.5 H (8.4-10.2) mg/dL Magnesium 1.5 L (1.6-2.3) mg/dL Total Bilirubin 1.0 (0.2-1.3) mg/dL AST 80 H (14-36) IU/L ALT 48 H (<35) IU/L Alkaline Phosphatase 122 (38-126) U/L Total Protein 8.3 H (6.3-8.2) g/dL Albumin 5.1 H (3.5-5.0) g/dL Globulin 3.2 (1.7-4.1) g/dL Albumin/Globulin Ratio 1.6 (1.0-2.8) Lipase 93 (23-300) U/L Urine RBC (0-5/HPF) Urine WBC (0-5/HPF) Ur Squamous Epith Cells (0-5/HPF) Ur Transition Epith Cell (0-5/HPF) Ur Renal Epithelial Cell (0-1/HPF) Urine Bacteria (None) Hyaline Casts (None) Ur Culture Indicated? U Opiates 300ng/mL cut (Negative) Ur Oxycodone Screen (Negative) Urine Methadone Screen (Negative) Ur Barbiturates Screen (Negative) U Tricyclic Antidepress (Negative) Ur Phencyclidine Scrn (Negative) Ur Amphetamines Screen (Negative) U Methamphetamines Scrn (Negative) Ur MDMA Scrn (Ecstasy) (Negative) U Benzodiazepines Scrn (Negative) Urine Cocaine Screen (Negative) U Marijuana (THC) Screen (Negative) Ethyl Alcohol 277 H ( - 10) mg/dL SARS-CoV-2 (PCR) Negative (Negative) 04/09/21 04/09/21 Range/Units 14:25 14:29 WBC (4.5-11.0) X10^3/uL RBC (4.0-5.2) X10^6/uL Hgb (12.0-16.0) g/dL Hct (36-46) % MCV (80-100) fL MCH (26-34) PG MCHC (30-36) % RDW (11.6-14.8) % Plt Count (150-400) X10^3/uL Neut % (Auto) (50-75) % Lymph % (Auto) (25-40) % [place] % (Auto) (3-14) % Eos % (Auto) (2-4) % Baso % (Auto) (0-2) % Neut # (Auto) (6858-3365) /uL Lymph # (Auto) (1847-5340) /uL [place] # (Auto) (0-900) /uL Eos # (Auto) (0-450) /uL Baso # (Auto) (0-100) /uL RBC Morphology Hypochromasia Anisocytosis Sodium (137-145) mmol/L Potassium (3.4-5.1) mmol/L Chloride (98-107) mmol/L Carbon Dioxide (22-32) mmol/L BUN (7-17) mg/dL Creatinine (0.52-1.04) mg/dL Estimated GFR (>60) mL/min BUN/Creatinine Ratio (6-22) Glucose (70-100) mg/dL Calcium (8.4-10.2) mg/dL Magnesium (1.6-2.3) mg/dL Total Bilirubin (0.2-1.3) mg/dL AST (14-36) IU/L ALT (<35) IU/L Alkaline Phosphatase (38-126) U/L Total Protein (6.3-8.2) g/dL Albumin (3.5-5.0) g/dL Globulin (1.7-4.1) g/dL Albumin/Globulin Ratio (1.0-2.8) Lipase (23-300) U/L Urine RBC 1-5/hpf (0-5/HPF) Urine WBC 0-1/hpf (0-5/HPF) Ur Squamous Epith Cells 1-5 /hpf (0-5/HPF) Ur Transition Epith Cell 0-1/hpf (0-5/HPF) Ur Renal Epithelial Cell 0-1/hpf (0-1/HPF) Urine Bacteria None seen (None) Hyaline Casts 1-5/lpf (None) Ur Culture Indicated? Cult not indicated U Opiates 300ng/mL cut Negative (Negative) Ur Oxycodone Screen Negative (Negative) Urine Methadone Screen Negative (Negative) Ur Barbiturates Screen Negative (Negative) U Tricyclic Antidepress Negative (Negative) Ur Phencyclidine Scrn Negative (Negative) Ur Amphetamines Screen Negative (Negative) U Methamphetamines Scrn Negative (Negative) Ur MDMA Scrn (Ecstasy) Negative (Negative) U Benzodiazepines Scrn Positive H (Negative) Urine Cocaine Screen Negative (Negative) U Marijuana (THC) Screen Negative (Negative) Ethyl Alcohol ( - 10) mg/dL SARS-CoV-2 (PCR) (Negative) Point of Care Testing Test Results Negative Urine Dip Bedside Urine Glucose Negative Bedside Urine Bilirubin - Negative Bedside Urine Ketone +/- 5 Urine Specific [place] 1.020 Bedside Urine Occult Blood ++ Bedside Urine pH 6.0 Bedside Urine Protein +/- 15 Bedside Urine Urobilinogen - Negative Bedside Urine Nitrite - Negative Bedside Urine Leukocytes - Negative Esterase Discharge Plan Departure Patient Disposition: Left Against Medical Advice Clinical Impression: Left against medical advice, Desire for detoxification, Alcohol abuse with withdrawal Prescriptions: No Action fluoxetine 40 mg Capsule 40 mg PO QAM RF: 0 quetiapine [Seroquel] 100 mg Tablet 100 mg PO BEDTIME RF: 0 Stand Alone Forms: Against Medical Advice <Dante Aden DO - Last Filed: 04/13/21 13:22> Cosign ED Attending Cosignature Attestation: I was immediately available in the department for consultation. This documentation has been reviewed and I agree with assessment and plan. Supervised by Dante Aden DO
[2021-04-09 13:27] VITALS: PULSE 70; O2SAT 97
[2021-04-09 13:30] VITALS: BP 149/89; PULSE 110; O2SAT 94
[2021-04-09] MEDS: ONDANSETRON 4 MG ODT SL (13:33)
[2021-04-09] MEDS: LORazepam 0.5 MG TABLET 1 MG PO (13:43)
[2021-04-09 14:12] LABS: Add Manual Diff / Slide Review NO; Basophils Absolute Auto 0 /uL (0-100); Eosinophils Absolute Auto 0 /uL (0-450); Eosinophils Percent Auto 0.4 % (2-4); Hematocrit 37.6 % (36-46); Hemoglobin 12.7 g/dL (12.0-16.0); Lymphocytes Absolute Auto 600 /uL (1100-4500); Lymphocytes Percent Auto 15.3 % (25-40); Mean Corpuscular HGB Conc 33.7 % (30-36); Mean Corpuscular Hemoglobin 27.8 PG (26-34); Mean Corpuscular Volume 82.4 fL (80-100); Monocytes Absolute Auto 500 /uL (0-900); Monocytes Percent Auto 14.1 % (3-14); Neutrophils Absolute Auto 2600 /uL (1500-7000); Neutrophils Percent Auto 69.2 % (50-75); Platelet Count 454 X10^3/uL (150-400); Red Blood Cell Count 4.56 X10^6/uL (4.0-5.2); Red Cell Distribution Width 20.1 % (11.6-14.8); White Blood Cell Count 3.7 X10^3/uL (4.5-11.0)
[2021-04-09 14:25] LABS: Alanine Aminotransferase 48 IU/L (<35); Albumin 5.1 g/dL (3.5-5.0); Albumin Globulin Ratio 1.6 (1.0-2.8); Alkaline Phosphatase 122 U/L (38-126); Aspartate Aminotransferase 80 IU/L (14-36); Blood Urea Nitrogen 17 mg/dL (7-17); Calcium 12.5 mg/dL (8.4-10.2); Carbon Dioxide 24 mmol/L (22-32); Chloride 89 mmol/L (98-107); Estimated Glomerular Filt Rate > 60.0 mL/min (>60); Ethanol (ETOH) 277 mg/dL; Globulin 3.2 g/dL (1.7-4.1); Glucose 87 mg/dL (70-100); HEMOLYSIS < 15 (0-50); Lipase 93 U/L (23-300); Magnesium 1.5 mg/dL (1.6-2.3); Potassium 4.6 mmol/L (3.4-5.1); Sodium 131 mmol/L (137-145); Total Protein 8.3 g/dL (6.3-8.2)
[2021-04-09 14:31] LABS: COVID19 - ADMIT (NP swab/PCR) Negative (Negative)
[2021-04-09 14:33] LABS: Bacteria Urine None Seen
[2021-04-09 14:39] LABS: UR Morphine/Opiate cutoff 300 Negative (Negative); Ur Creatinine Normal (Normal); Ur Specific Gravity Normal (Normal); Urine Amphetamines Negative (Negative); Urine Barbiturates Negative (Negative); Urine Cocaine Negative (Negative); Urine MDMA Negative (Negative); Urine Methamphetamines Negative (Negative); Urine Phencyclidine Negative (Negative); Urine Tetrahydrocannabinol Negative (Negative); Urine pH Normal (Normal)
[2021-04-09 14:40] LABS: Urine Benzodiazepines Positive (Negative); Urine Methadone Negative (Negative); Urine Oxycodone Negative (Negative); Urine Tricyclic Antidepressant Negative (Negative)
[2021-04-09 14:47] LABS: Culture Indicated Urine Cult Not Indicated; Hyaline Casts Urine 1-5/LPF; RBC Urine 1-5/HPF (0-5/HPF); Renal Epithelial Cells Urine 0-1/HPF (0-1/HPF); Squamous Epithelial Cell Urine 1-5 /HPF (0-5/HPF); Transitional Epi Cells Urine 0-1/HPF (0-5/HPF); WBC Urine 0-1/HPF (0-5/HPF)
[2021-04-09 14:49] LABS: Anisocytosis 2+
[2021-04-09 14:50] LABS: Hypochromasia 1+
== END 2021-04-09 15:03 | disposition left against medical advice (07) ==
PROVIDERS: Emergency Provider Student in an Organized Health Care Education/Training Program
DX: F10.239 Alcohol dependence with withdrawal, unspecified (principal); F10.229 Alcohol dependence with intoxication, unspecified; Y90.8 Blood alcohol level of 240 mg/100 ml or more; Z20.822 Contact with and (suspected) exposure to COVID-19
CPT/HCPCS: 36415; 80053; 80305; 80320; 81003; 81015; 81025; 83690; 83735; 85025; 87635; 99283; C9803

== ENCOUNTER 2021-04-10 16:54 | Emergency (ER) | payer OTHER, SELFPAY ==
[2021-03-27 10:56] VITALS: BMI 24.9
[2021-04-10] VITALS (16 sets, daily range): BP systolic 108–138; BP diastolic 61–87; PULSE 88–102; RESP 16–20; TEMP 36.7; O2SAT 93–100
[2021-04-10] MEDS: SODIUM CHLORIDE 0.9% 1,000 ML 1000 ML IV (17:11)
[2021-04-10] MEDS: ONDANSETRON 4 MG/2 ML INJ (17:12)
[2021-04-10 17:20] LABS: Add Manual Diff / Slide Review NO; Basophils Absolute Auto 0 /uL (0-100); Basophils Percent Auto 1.1 % (0-2); Eosinophils Absolute Auto 0 /uL (0-450); Hematocrit 32.7 % (36-46); Lymphocytes Absolute Auto 1000 /uL (1100-4500); Mean Corpuscular HGB Conc 33.7 % (30-36); Mean Corpuscular Volume 83.2 fL (80-100); Monocytes Absolute Auto 500 /uL (0-900); Monocytes Percent Auto 12.7 % (3-14); Neutrophils Absolute Auto 2100 /uL (1500-7000); Neutrophils Percent Auto 57.2 % (50-75); Platelet Count 386 X10^3/uL (150-400); Red Blood Cell Count 3.93 X10^6/uL (4.0-5.2); Red Cell Distribution Width 20.2 % (11.6-14.8); White Blood Cell Count 3.7 X10^3/uL (4.5-11.0)
[2021-04-10 17:26] LABS: Alanine Aminotransferase 51 IU/L (<35); Albumin 4.6 g/dL (3.5-5.0); Albumin Globulin Ratio 1.5 (1.0-2.8); Alkaline Phosphatase 106 U/L (38-126); Aspartate Aminotransferase 111 IU/L (14-36); BUN Creatinine Ratio 23.4 (6-22); Bilirubin Total 0.8 mg/dL (0.2-1.3); Blood Urea Nitrogen 15 mg/dL (7-17); Calcium 9.7 mg/dL (8.4-10.2); Carbon Dioxide 21 mmol/L (22-32); Chloride 89 mmol/L (98-107); Estimated Glomerular Filt Rate > 60.0 mL/min (>60); Ethanol (ETOH) 265 mg/dL; Glucose 92 mg/dL (70-100); HEMOLYSIS 18 (0-50); Potassium 3.8 mmol/L (3.4-5.1); Sodium 125 mmol/L (137-145); Total Protein 7.6 g/dL (6.3-8.2)
[2021-04-10 17:49] LABS: Anisocytosis 2+
--- NOTE | 2021-04-10 18:24 | ED_ITS ---
HPI - Psych General Chief Complaint: Psychiatric Symptoms Stated Complaint: Suicidal thoughts Time Seen by Provider: 04/10/21 16:59 Source: patient and EMS Mode of arrival: EMS History of Present Illness HPI Narrative: 55-year-old female who has been seen here in our department several times over the past month for alcohol intoxication. Her most recent encounter was within the past 48 hours. I have evaluated her in the past. She has a longstanding history of alcohol abuse/alcoholism. She has been to rehab in the past. She has been out of the area for several years to work and she is now back locally. She denies any other drug use. She also has a history of depression. She has not been on any of her antidepressive medications because she is out of these medications and she states that she has missed the last 3 calls with her mental health provider most likely due to drinking. She has been admitted to our facility in the past secondary alcohol withdrawals. She has never had a seizure in the past. Her visit here 48 hours ago she left against medical advice. She arrives to the emergency department today intoxicated. She states that she does have thoughts of dying because of her troubles with alcohol. She has no specific plan to kill herself. She states that she would never act on anything because her parents are still alive. She is very depressed about her alcoholism. She is here today asking for help with alcohol detox. Related Data Home Medications Medication Instructions Recorded Confirmed fluoxetine 40 mg capsule 40 mg PO QAM 03/28/21 03/28/21 quetiapine 100 mg tablet (Seroquel) 100 mg PO BEDTIME 03/28/21 03/28/21 Allergies Allergy/AdvReac Type Severity Reaction Status Date / Time No Allergy Information Allergy Verified 03/26/21 22:08 Available Review of Systems Constitutional Constitutional: Reports system reviewed and no additional complaints, except as documented Cardiovascular Cardiovascular: Reports system reviewed and no additional complaints, except as documented Respiratory Respiratory: Reports system reviewed and no additional complaints, except as documented Gastrointestinal Gastrointestinal: Reports system reviewed and no additional complaints, except as documented Genitourinary Genitourinary: Reports system reviewed and no additional complaints, except as documented Musculoskeletal Musculoskeletal: Reports system reviewed and no additional complaints, except as documented Integumentary/Breasts Skin/Breast: Reports system reviewed and no additional complaints, except as documented Neurologic Neurologic: Reports system reviewed and no additional complaints, except as documented Psychiatric Psychiatric: Reports as per HPI Hematologic/Lymphatic On Anticoagulants: No Patient History Medical History Alcohol abuse Anxiety Depression Family History (Updated 03/27/21 @ 18:16 by Akua Rowe MD) Mother Hypertension Social History household members: none lives independently: Yes Smoking Status: Never smoker Smoking Status: Never smoker alcohol intake frequency: 3 or more drinks per day Alcohol type: hard liquor Substance Use Type: does not use Exam Initial Vital Signs Initial Vital Signs: Vital Signs Temperature 98.1 F 04/10/21 16:54 Pulse Rate 98 H 04/10/21 16:54 Respiratory Rate 20 04/10/21 16:54 Blood Pressure 128/69 04/10/21 16:54 Pulse Oximetry 98 04/10/21 16:54 Const General: cooperative, comfortable and disheveled HENMT Head: normal to inspection and normocephalic Eyes General: appearance normal, both eyes and all related structures Resp Effort & Inspection: normal respiratory effort Auscultation: clear to auscultation bilaterally Cardio Rate: regular rate Rhythm: regular rhythm GI Inspection: normal to inspection Skin General: no rashes or lesions noted Neuro General: patient alert, patient awake and moves all extremities Speech: other (Slurred speech) Motor: muscle tone normal throughout Extrem General: normal to inspection and capillary refill normal Psych Other: Patient is tearful, is cooperative. Is calm. Course Orders Ordered: ED Orders 04/10/21 17:00 Acetaminophen Stat Complete Blood Count AUTO DIFF Stat Comprehensive Metabolic Panel Stat Ethanol (ETOH) Stat Salicylate Stat Thyroid Stimulating Hormone Stat 04/10/21 18:45 COVID19 -Nasal swab/Pre-Proc Stat Urinalysis and Microscopic Stat Urine Culture Stat Urine Drug Screen, Rapid Stat 04/10/21 20:12 Ethanol (ETOH) Stat Discontinued Medications Sodium Chloride (Normal Saline 0.9%) 1,000 mls @ 1,000 mls/hr IV BOLUS ONE Stop: 04/10/21 17:58 Last Infusion: 04/10/21 19:06 Dose: 0 mls/hr Documented by: Admin: 04/10/21 17:11 Dose: 1,000 mls/hr Documented by: RLAZANI Ondansetron HCl (Ondansetron 4 Mg/2 Ml Inj) 4 mg IV NOW ONE Stop: 04/10/21 19:44 Last Admin: 04/10/21 19:52 Dose: 4 mg Documented by: USHA Ondansetron HCl (Ondansetron 4 Mg/2 Ml Inj) 4 mg IV NOW ONE Stop: 04/10/21 22:27 Last Admin: 04/10/21 22:50 Dose: 4 mg Documented by: USHA Vital Signs Vital signs: Vital Signs - 8 hr 04/10/21 16:54 04/10/21 17:16 04/10/21 17:30 Temperature 98.1 F Pulse Rate 98 H 95 H 93 H Respiratory Rate 20 Blood Pressure 128/69 126/67 Pulse Oximetry 98 100 98 04/10/21 18:00 04/10/21 18:30 04/10/21 19:00 Temperature Pulse Rate 95 H 90 91 H Respiratory Rate Blood Pressure 110/64 116/67 108/61 Pulse Oximetry 94 98 95 04/10/21 19:30 04/10/21 20:00 04/10/21 20:01 Temperature Pulse Rate 101 H 91 H 102 H Respiratory Rate Blood Pressure 121/79 113/66 Pulse Oximetry 100 97 100 04/10/21 20:30 04/10/21 21:00 04/10/21 21:30 Temperature Pulse Rate 92 H 99 H 96 H Respiratory Rate Blood Pressure 126/84 132/76 117/66 Pulse Oximetry 98 100 93 04/10/21 22:00 04/10/21 22:30 04/10/21 23:00 Temperature Pulse Rate 93 H 95 H 89 Respiratory Rate 16 16 Blood Pressure 131/76 121/69 125/64 Pulse Oximetry 97 95 95 MDM - Psych Medical Records Attestation: I reviewed the patient's medical records. Lab Data Attestation: I reviewed the patient's lab results. Result diagrams: 04/10/21 17:00 04/10/21 17:00 Labs: Lab Results 04/10/21 04/10/21 04/10/21 Range/Units 17:00 17:00 17:00 WBC 3.7 L (4.5-11.0) X10^3/uL RBC 3.93 L (4.0-5.2) X10^6/uL Hgb 11.0 L (12.0-16.0) g/dL Hct 32.7 L (36-46) % MCV 83.2 (80-100) fL MCH 28.0 (26-34) PG MCHC 33.7 (30-36) % RDW 20.2 H (11.6-14.8) % Plt Count 386 (150-400) X10^3/uL Neut % (Auto) 57.2 (50-75) % Lymph % (Auto) 28.0 (25-40) % [place] % (Auto) 12.7 (3-14) % Eos % (Auto) 1.0 L (2-4) % Baso % (Auto) 1.1 (0-2) % Neut # (Auto) 2100 (1788-1509) /uL Lymph # (Auto) 1000 L (0341-4362) /uL [place] # (Auto) 500 (0-900) /uL Eos # (Auto) 0 (0-450) /uL Baso # (Auto) 0 (0-100) /uL RBC Morphology See below Anisocytosis 2+ H Sodium 125 L (137-145) mmol/L Potassium 3.8 (3.4-5.1) mmol/L Chloride 89 L (98-107) mmol/L Carbon Dioxide 21 L (22-32) mmol/L BUN 15 (7-17) mg/dL Creatinine 0.64 (0.52-1.04) mg/dL Estimated GFR > 60.0 (>60) mL/min BUN/Creatinine Ratio 23.4 H (6-22) Glucose 92 (70-100) mg/dL Calcium 9.7 (8.4-10.2) mg/dL Total Bilirubin 0.8 (0.2-1.3) mg/dL AST 111 H (14-36) IU/L ALT 51 H (<35) IU/L Alkaline Phosphatase 106 (38-126) U/L Total Protein 7.6 (6.3-8.2) g/dL Albumin 4.6 (3.5-5.0) g/dL Globulin 3.0 (1.7-4.1) g/dL Albumin/Globulin Ratio 1.5 (1.0-2.8) TSH 2.04 D (0.47-4.68) uIU/mL Urine Color Urine Appearance Urine pH (4.5-8.0) Ur Specific [place] (1.000-1.035) Urine Protein (Negative) Urine Glucose (UA) (Negative) g/dL Urine Ketones (NEGATIVE) Urine Occult Blood (Negative) Urine Nitrate (Negative) Urine Bilirubin (NEGATIVE) Urine Urobilinogen (0.2) E.U./dL Ur Leukocyte Esterase (NEGATIVE) Urine RBC (0-5/HPF) Urine WBC (0-5/HPF) Ur Squamous Epith Cells (0-5/HPF) Amorphous Sediment Urine Bacteria (None) Ur Culture Indicated? Salicylates (<20) mg/dL U Opiates 300ng/mL cut (Negative) Ur Oxycodone Screen (Negative) Urine Methadone Screen (Negative) Acetaminophen (10-30) ug/mL Ur Barbiturates Screen (Negative) U Tricyclic Antidepress (Negative) Ur Phencyclidine Scrn (Negative) Ur Amphetamines Screen (Negative) U Methamphetamines Scrn (Negative) Ur MDMA Scrn (Ecstasy) (Negative) U Benzodiazepines Scrn (Negative) Urine Cocaine Screen (Negative) U Marijuana (THC) Screen (Negative) Ethyl Alcohol 265 H ( - 10) mg/dL SARS-CoV-2 (PCR) (Negative) 04/10/21 04/10/21 04/10/21 Range/Units 17:00 18:45 18:45 WBC (4.5-11.0) X10^3/uL RBC (4.0-5.2) X10^6/uL Hgb (12.0-16.0) g/dL Hct (36-46) % MCV (80-100) fL MCH (26-34) PG MCHC (30-36) % RDW (11.6-14.8) % Plt Count (150-400) X10^3/uL Neut % (Auto) (50-75) % Lymph % (Auto) (25-40) % [place] % (Auto) (3-14) % Eos % (Auto) (2-4) % Baso % (Auto) (0-2) % Neut # (Auto) (7343-3751) /uL Lymph # (Auto) (1773-5202) /uL [place] # (Auto) (0-900) /uL Eos # (Auto) (0-450) /uL Baso # (Auto) (0-100) /uL RBC Morphology Anisocytosis Sodium (137-145) mmol/L Potassium (3.4-5.1) mmol/L Chloride (98-107) mmol/L Carbon Dioxide (22-32) mmol/L BUN (7-17) mg/dL Creatinine (0.52-1.04) mg/dL Estimated GFR (>60) mL/min BUN/Creatinine Ratio (6-22) Glucose (70-100) mg/dL Calcium (8.4-10.2) mg/dL Total Bilirubin (0.2-1.3) mg/dL AST (14-36) IU/L ALT (<35) IU/L Alkaline Phosphatase (38-126) U/L Total Protein (6.3-8.2) g/dL Albumin (3.5-5.0) g/dL Globulin (1.7-4.1) g/dL Albumin/Globulin Ratio (1.0-2.8) TSH (0.47-4.68) uIU/mL Urine Color Urine Appearance Urine pH (4.5-8.0) Ur Specific [place] (1.000-1.035) Urine Protein (Negative) Urine Glucose (UA) (Negative) g/dL Urine Ketones (NEGATIVE) Urine Occult Blood (Negative) Urine Nitrate (Negative) Urine Bilirubin (NEGATIVE) Urine Urobilinogen (0.2) E.U./dL Ur Leukocyte Esterase (NEGATIVE) Urine RBC (0-5/HPF) Urine WBC (0-5/HPF) Ur Squamous Epith Cells (0-5/HPF) Amorphous Sediment Urine Bacteria (None) Ur Culture Indicated? Salicylates < 1.0 (<20) mg/dL U Opiates 300ng/mL cut Negative (Negative) Ur Oxycodone Screen Negative (Negative) Urine Methadone Screen Negative (Negative) Acetaminophen < 10 L (10-30) ug/mL Ur Barbiturates Screen Negative (Negative) U Tricyclic Antidepress Negative (Negative) Ur Phencyclidine Scrn Negative (Negative) Ur Amphetamines Screen Negative (Negative) U Methamphetamines Scrn Negative (Negative) Ur MDMA Scrn (Ecstasy) Negative (Negative) U Benzodiazepines Scrn Positive H (Negative) Urine Cocaine Screen Negative (Negative) U Marijuana (THC) Screen Negative (Negative) Ethyl Alcohol ( - 10) mg/dL SARS-CoV-2 (PCR) Negative (Negative) 04/10/21 04/10/21 Range/Units 18:45 20:12 WBC (4.5-11.0) X10^3/uL RBC (4.0-5.2) X10^6/uL Hgb (12.0-16.0) g/dL Hct (36-46) % MCV (80-100) fL MCH (26-34) PG MCHC (30-36) % RDW (11.6-14.8) % Plt Count (150-400) X10^3/uL Neut % (Auto) (50-75) % Lymph % (Auto) (25-40) % [place] % (Auto) (3-14) % Eos % (Auto) (2-4) % Baso % (Auto) (0-2) % Neut # (Auto) (7014-9102) /uL Lymph # (Auto) (5359-7876) /uL [place] # (Auto) (0-900) /uL Eos # (Auto) (0-450) /uL Baso # (Auto) (0-100) /uL RBC Morphology Anisocytosis Sodium (137-145) mmol/L Potassium (3.4-5.1) mmol/L Chloride (98-107) mmol/L Carbon Dioxide (22-32) mmol/L BUN (7-17) mg/dL Creatinine (0.52-1.04) mg/dL Estimated GFR (>60) mL/min BUN/Creatinine Ratio (6-22) Glucose (70-100) mg/dL Calcium (8.4-10.2) mg/dL Total Bilirubin (0.2-1.3) mg/dL AST (14-36) IU/L ALT (<35) IU/L Alkaline Phosphatase (38-126) U/L Total Protein (6.3-8.2) g/dL Albumin (3.5-5.0) g/dL Globulin (1.7-4.1) g/dL Albumin/Globulin Ratio (1.0-2.8) TSH (0.47-4.68) uIU/mL Urine Color Yellow Urine Appearance Sl cloudy Urine pH 6.5 (4.5-8.0) Ur Specific [place] <=1.005 (1.000-1.035) Urine Protein Trace H (Negative) Urine Glucose (UA) Negative (Negative) g/dL Urine Ketones 1+ H (NEGATIVE) Urine Occult Blood 1+ H (Negative) Urine Nitrate Negative (Negative) Urine Bilirubin Negative (NEGATIVE) Urine Urobilinogen 0.2 (0.2) E.U./dL Ur Leukocyte Esterase 1+ H (NEGATIVE) Urine RBC 1-5/hpf (0-5/HPF) Urine WBC 5-10/hpf H (0-5/HPF) Ur Squamous Epith Cells 5-10 /hpf H (0-5/HPF) Amorphous Sediment 1+ Urine Bacteria Few (2-10) H (None) Ur Culture Indicated? Specimen cultured Salicylates (<20) mg/dL U Opiates 300ng/mL cut (Negative) Ur Oxycodone Screen (Negative) Urine Methadone Screen (Negative) Acetaminophen (10-30) ug/mL Ur Barbiturates Screen (Negative) U Tricyclic Antidepress (Negative) Ur Phencyclidine Scrn (Negative) Ur Amphetamines Screen (Negative) U Methamphetamines Scrn (Negative) Ur MDMA Scrn (Ecstasy) (Negative) U Benzodiazepines Scrn (Negative) Urine Cocaine Screen (Negative) U Marijuana (THC) Screen (Negative) Ethyl Alcohol 183 H ( - 10) mg/dL SARS-CoV-2 (PCR) (Negative) MDM Narrative Medical decision making narrative: Patient is obviously intoxicated in did have an elevated alcohol level upon arrival. This did improve with time. She is alert and oriented. Is tearful in the room but is cooperative. She does have thoughts of dying because of her issues with alcohol. She states she would never act on these issues because her parents are still alive. She does admit that they are related to her alcohol abuse. She denies any other drugs. She is medically cleared and is asking for help with alcohol rehab. There has been no signs of alcohol withdrawal. She did have 1 episode of vomiting after eating a sandwich here in the ER. This resolved with Zofran. Patient has been stable since arrival here in the ER. She has been accepted to [facility] in [place]. Patient is agreeable with this. Patient is stable for transport. Discharge Plan Departure Patient Disposition: Released, Other Clinical Impression: Alcohol intoxication Prescriptions: No Action fluoxetine 40 mg Capsule 40 mg PO QAM RF: 0 quetiapine [Seroquel] 100 mg Tablet 100 mg PO BEDTIME RF: 0
[2021-04-10 18:37] LABS: Acetaminophen < 10 ug/mL (10-30); Salicylate < 1.0 mg/dL (<20)
[2021-04-10 18:55] LABS: Ur Creatinine Normal (Normal); Ur Specific Gravity Normal (Normal); Urine pH Normal (Normal)
[2021-04-10 18:56] LABS: Appearance Urine UA SL CLOUDY; Bilirubin Urine UA NEGATIVE (NEGATIVE); Color Urine UA YELLOW; Glucose Urine UA NEGATIVE (Negative); Ketones Urine UA 1+ (NEGATIVE); Leukocyte Esterase Urine UA 1+ (NEGATIVE); Nitrite Urine UA NEGATIVE (Negative); Occult Blood Urine UA 1+ (Negative); Protein Urine UA TRACE (Negative); Specific Gravity Urine UA <=1.005 (1.000-1.035); UR Morphine/Opiate cutoff 300 Negative (Negative); Urine Amphetamines Negative (Negative); Urine Barbiturates Negative (Negative); Urine Benzodiazepines Positive (Negative); Urine Cocaine Negative (Negative); Urine MDMA Negative (Negative); Urine Methadone Negative (Negative); Urine Methamphetamines Negative (Negative); Urine Oxycodone Negative (Negative); Urine Phencyclidine Negative (Negative); Urine Tetrahydrocannabinol Negative (Negative); Urine Tricyclic Antidepressant Negative (Negative); Urobilinogen Urine UA 0.2 E.U./dL (0.2)
[2021-04-10 19:06] LABS: COVID19 -Nasal RAPID Negative (Negative)
[2021-04-10 19:11] LABS: pH Urine UA 6.5 (4.5-8.0)
[2021-04-10 19:12] LABS: Amorphous Sediment Urine 1+; Bacteria Urine Few (2-10); RBC Urine 1-5/HPF (0-5/HPF); Squamous Epithelial Cell Urine 5-10 /HPF (0-5/HPF); WBC Urine 5-10/HPF (0-5/HPF)
[2021-04-10 19:12] LABS: Thyroid Stimulating Hormone 2.04 uIU/mL (0.47-4.68)
[2021-04-10 19:13] LABS: Culture Indicated Urine Specimen Cultured
[2021-04-10] MEDS: ONDANSETRON 4 MG/2 ML INJ IV ×2 (19:52→22:50)
[2021-04-10 20:29] LABS: Ethanol (ETOH) 183 mg/dL
[2021-04-10] MEDS: ONDANSETRON 4 MG ODT PREPACK 1 BOTTLE MISC (23:31)
== END 2021-04-10 23:45 | disposition home or self-care (01) ==
PROVIDERS: Emergency Medicine; Emergency Provider Emergency Medicine
DX: R45.851 Suicidal ideations (principal); F10.129 Alcohol abuse with intoxication, unspecified; Y90.8 Blood alcohol level of 240 mg/100 ml or more
CPT/HCPCS: 80053; 80305; 80320; 80329; 81001; 84443; 85025; 87077; 87086; 87147; 87635; 96361; 96374; 96376; 99284; C9803; G0480; J2405

== ENCOUNTER 2021-04-16 19:03 | Emergency (ER) | payer OTHER, SELFPAY ==
[2021-03-27 10:56] VITALS: BMI 24.9
[2021-04-16 19:13] VITALS: BP 119/69; PULSE 105; RESP 15; TEMP 37; O2SAT 97; BMI 25.7
--- NOTE | 2021-04-16 19:56 | CM.SWNOTE ---
THREAD TRIMMER Assessment THREAD TRIMMER - Telephone Advice Nurse Assessment THREAD TRIMMER/Telephone Advice Nurse Assessment Time Spent with Patient Start date 04/16/21 Visit Start Time 19:10 End date 04/16/21 Visit End Time 19:30 Total time Care Management spent on 20 patient visit-in minutes Substance Abuse Screening Include Onset, Duration, Intensity Presenting Problem Patient presents to this ED seeking ETOH detox with the goal of going into inpatient treatment Precipitating Event(s) Patient was went to detox at [facility] in [place] on 04/10/21 and would like to return with the goal of inpatient treatment. Patient denies any recent tirggers or events. Patient Strengths Patient is seeking help Current Behavioral Health Provider(s) Psychiatrist Dr. Anay Rivas Include Facility, Provider, Ph. # in [place] (Ph. # ) Patient endorses that pscyhiatrist prescribes medication and patient has missed the last three phone sessions. Patient endorses she is prescribed Seraqual and Trazadone. Patient endorses hx of depression and anxiety Family Hx of Behavioral Abuse None reported. Patient endorses that her family does not know about her JUAREZ and does not know she is at the hospital or that she has been struggling with JUAREZ. Rehab Facilities? ((Date(s), Location(s) Patient endorses she went to ) Treatment center in [facility], but left after a few weeks. Patient endorses she has been to detox 4 times in the last 4 weeks History of Withdrawal? Seizures? Patient endorses shakes, vomitting, nausea, and delusions and hx of seizures ( last seizure was 2.5 years ago ) Longest Period of Sobriety 20 years (about 15 years ago). Psychosocial information & Support Patient is 55 y/o female who Systems resides in [place], [place]. Patient endorses her mother, father, brother, and sister live in [place] and she reports that they are her supports but do not know about her JUAREZ. School/Work Patient endorses she makes $ 400,000 a year Legal Concerns Legal Matters - Outstanding Issues None reported Mental Status Orientation (Person/Place/Time) A/Ox4 Stated Mood nauseous Affect (Congruent with Mood?) euthymic, stable, congruent with mood Thought Content - Specify/Describe Patient endorses hx of Obsessions, Delusions, Hallucinations delusions when withdrawing from ETOH Thought Processes (Tzxtmko-Vxflimyu-Dazu circumstantial Sjlegkms-Wvtlazvu-Tntotmbryl- Myfqkqkuhdvjyh-Ldaoaju-Youtqwnwjmsf- Thought Blocking) Speech (Nbbsba-Dpdt-Yaqeweh-Rapid-Soft- slow/slurred Loud-Pressured) Motor (Vdtxrk-Gipzysrrj-Bwcl-Other) slow Insight (Fbkp-Zloi-Nund/Limited) fair/limited Judgement (Qqsx-Gssu-Cdlk/Limited) fair/limited Impulse Control (Adequate-Impaired) adequate Memory (Hohweohsj-Rjleot-Qycgcv, intact Impaired-Intact) Concentration (Intact-Impaired) impaired, slow to respond Attention (Intact-Impaired) intact Behavior (Appropriate-Inappropriate) appropriate Additional Comment Patient is appreciative to be at hospital and reports that she is embarrassed. Risk Assessment Suicidal Ideation (Plan) Yes Homicidal Ideation (Plan) No Comment Patient denies HI and self harm. Patient endorses SI and states she thinks about walking in front of a train a few times a week. Patient endorses she would walk in front of a train if her mother and father dies. Patient endorses that she has a great life. Intervention Intervention THREAD TRIMMER meets with patient. Patient endorses that she drank 12 shots of whiskey and 2 glasses of wine today and her last drink was 10 hours ago. Patient endorses she has been drinking 12-14 drinks daily, but was sober for a week after detox on 04/10/21. Patient endorses that she is seeking to go to inpatient treatment. Patient states that she would like to go to [facility] again for detox and indicates that her goals will be to be transferred to inpatient treatment. Patient endorses that she has been to inpatient treatment before but left after a few weeks. Patient endorses she has had success in outpatient and AA programs in the past. THREAD TRIMMER reviews the above with ED provider Dr. Aden who indicates agreement and understanding Plan RA Plan Patient to d/c to detox center when medically clear after ED provider medical assessment Patient informs LUCAS Callejas that she wants to go home, and LUCAS Callejas reviews this with ED provider Dr. Aden. ED provider to follow up with POC after medical assessment with patient. CHANDLER Sung
--- NOTE | 2021-04-16 20:16 | CM.SWNOTE ---
INFIRMARY ATTENDANT Note Patient gets up to leave. INFIRMARY ATTENDANT speaks with patient about medical clearance to go to detox. Patient endorses that she doesn't want to wait and that she has been here 4 times in the last month and she reports that she has spoken with her insurance company and she has been told that she needs to be seen by an ED provider to get into detox. Patient states that she has called [facility] for inpt and they do not have beds. INFIRMARY ATTENDANT discusses that she just needs to wait to be seen for medical clearance by ED provider and that ED staff will support her in getting to detox so she can go to inpt. Patient proceeds to leave AMA with the understanding that she cannot move forward in treatment goals without being medically clear or going to outpatient JUAREZ provider for assessment. Plan: patient left AMA stated she could not wait any longer. Niharika Fong MSW
== END 2021-04-16 20:20 | disposition left against medical advice (07) ==
PROVIDERS: Emergency Provider Emergency Medicine
CPT/HCPCS: 99281

== ENCOUNTER 2021-06-09 06:04 | Inpatient (IN) | payer OTHER, SELFPAY ==
[2021-03-27 10:56] VITALS: BMI 24.9
[2021-06-09] VITALS (25 sets, daily range): BP systolic 98–150; BP diastolic 60–107; PULSE 80–112; RESP 16–20; TEMP 36.3–37.2; O2SAT 94–100; BMI 27.4; BMI 26.6
--- NOTE | 2021-06-09 06:08 | DI.RAD.S_ITS ---
PROCEDURE: XR CHEST 1V INDICATIONS: withdrawl, vomiting. TECHNIQUE: One view of the chest was acquired. COMPARISON: [facility], CR, XR ABDOMEN 1V, 06/09/2021, 6:13. FINDINGS: Surgical changes and devices: Status post laparoscopic gastric banding. Lungs and pleura: Lungs are clear. No pleural effusions or pneumothorax. Mediastinum: Mediastinal contours appear normal. Heart size is normal. Bones and chest wall: No suspicious bony lesions. Overlying soft tissues appear unremarkable. IMPRESSION: No acute disease. Dictated by: Alok Olivas M.D. on 06/09/2021 at 8:12 Approved by: Alok Olivas M.D. on 06/09/2021 at 8:19
--- NOTE | 2021-06-09 06:08 | DI.RAD.S_ITS ---
PROCEDURE: XR ABDOMEN 1V INDICATIONS: vomiting TECHNIQUE: One view of the abdomen acquired. COMPARISON: None. FINDINGS: Surgical changes and devices: Laparoscopic gastric banding postsurgical changes. Bowel: Bowel gas pattern is normal. No definite transition point. No pathologically dilated bowel loops. Soft tissues: No suspicious abdominal calcifications. Visualized solid organ contours appear normal in size. Bones: No suspicious bony lesions. IMPRESSION: No evidence of bowel obstruction. Status post laparoscopic gastric banding. Recommend clinical correlation and management to confirm functional status. Dictated by: Alok Olivas M.D. on 06/09/2021 at 8:19 Approved by: Alok Olivas M.D. on 06/09/2021 at 8:23
--- NOTE | 2021-06-09 06:10 | ED_ITS ---
HPI - Alcohol <Ev Sanders DO - Last Filed: 06/10/21 02:40> General Chief Complaint: Toxicology Problem Stated Complaint: withdrawl/ seizure Time Seen by Provider: 06/09/21 06:07 History of Present Illness HPI narrative: This is a 55-year-old female who is brought for alcohol withdrawal. Patient states she last drank at 6:00 a.m. on the . She states she typically drinks several fifths a day. Patient states she started vomiting on Tuesday, 5 days ago. Patient states she has not been achy full to take her Prozac or Seroquel and this is worsening her mental health disorder. She states she did go to rehab in April had was doing well but relapsed. She denies any other drug use. She denies any other daily medications. She is not sure but may have had he seizure according to the patient. To complaints of generalized chest and abdominal pain. No active shortness of breath. She states she saw some blood in her emesis. She denies any black or bloody stools. She denies any changes to bowel movements. She denies any urinary symptoms. Related Data Home Medications Medication Instructions Recorded Confirmed fluoxetine 40 mg capsule 40 mg PO QAM 03/28/21 06/09/21 quetiapine 100 mg tablet (Seroquel) 100 mg PO BEDTIME 03/28/21 06/09/21 trazodone 50 mg tablet 50 mg PO BEDTIME 06/09/21 06/09/21 Allergies Allergy/AdvReac Type Severity Reaction Status Date / Time No Known Drug Allergies Allergy Verified 06/09/21 06:32 Review of Systems <Ev Sanders DO - Last Filed: 06/10/21 02:40> Review of Systems ROS Unobtainable: All systems reviewed & are unremarkable except as noted in HPI and below Patient History <Ev Sanders DO - Last Filed: 06/10/21 02:40> Medical History Alcohol abuse Anxiety Depression Family History Mother Hypertension Social History household members: none lives independently: Yes Smoking Status: Never smoker Smoking Status: Never smoker alcohol intake frequency: 3 or more drinks per day Alcohol type: hard liquor Substance Use Type: does not use Exam <DO Zainab Boyd Last Filed: 06/10/21 02:40> Narrative Exam Narrative: GEN: alert and oriented, patient in mild to moderate distress. HEENT: Atraumatic, pupils are equal round reactive to light, extraocular movements are intact, nares are clear, TMs are clear with no fluid, there is no conjunctival pallor. Throat is clear without any exudates, erythema, tonsillar enlargement or uvular deviation, no lip or tongue lacerations appreciated. HEART: Regular rate and rhythm without murmur, clicks, rubs. LUNGS:Lungs clear to auscultation, no wheezes, rales, crackles, chest moves symmetrically ABD:bowel sounds normal, soft, non-tender, no guarding, rebound, rigidity, no masses noted, no hepatosplenomegaly, non-distended. Dry heaves in department, there is about 50mL of green emesis in blue emesis bag. :No CVA tenderness MSCL: Non-tender, no muscle atrophy, muscles strength 5/5 upper and lower extremities, full range of motion, patient is able to move from a lying position to rotating 180 and being on her knees and then returning to her back without any assistance. NEURO:CN 2-12 intact, sensation normal, no tremor appreciated. SKIN: No rash, erythema or skin changes noted. Initial Vital Signs Initial Vital Signs: Vital Signs Pulse Rate 106 H 06/09/21 06:09 Pulse Oximetry 98 06/09/21 06:09 <Dante Aden DO - Last Filed: 06/09/21 19:05> Initial Vital Signs Initial Vital Signs: Vital Signs Pulse Rate 106 H 06/09/21 06:09 Pulse Oximetry 98 06/09/21 06:09 Course <DO Zainab Boyd Last Filed: 06/10/21 02:40> Orders Ordered: ED Orders 06/09/21 20:37 Urine Drug Screen, Rapid Stat Acetaminophen (Acetaminophen 325 Mg Tablet) 650 mg PO Q6HR PRN PRN Reason: Fever/Mild Pain (1-3) Last Admin: 06/09/21 20:57 Dose: 650 mg Documented by: Admin: 06/09/21 15:26 Dose: 650 mg Documented by: FRED Enoxaparin Sodium (Enoxaparin 40 Mg/0.4 Ml Syringe) 40 mg SUBCUT DAILY MARYJANE Fluoxetine HCl (Fluoxetine 20 Mg Capsule) 40 mg PO DAILY MARYJANE Last Admin: 06/09/21 20:57 Dose: 40 mg Documented by: FRED Folic Acid (Folic Acid 1 Mg Tablet) 1 mg PO DAILY MARYJANE Dextrose/Sodium Chloride (Dextrose 5%-0.9% Ns) 1,000 mls @ 100 mls/hr IV CONT MARYJANE Last Admin: 06/10/21 01:01 Dose: 100 mls/hr Documented by: LUIS EDUARDO Infusion: 06/10/21 00:51 Dose: 100 mls/hr Documented by: LUIS EDUARDO Admin: 06/09/21 14:51 Dose: 100 mls/hr Documented by: JEANA Lorazepam (Lorazepam 2 Mg/Ml Inj) 0 mg IV CIWAPRN PRN; Protocol PRN Reason: Alcohol Withdrawal Last Admin: 06/09/21 13:07 Dose: 2 mg Documented by: Admin: 06/09/21 12:42 Dose: 1 mg Documented by: JEANA Lorazepam (Lorazepam 1 Mg Tablet) 0 mg PO CIWAPRN PRN; Protocol PRN Reason: Alcohol Withdrawal Last Admin: 06/09/21 19:37 Dose: 1 mg Documented by: Admin: 06/09/21 15:23 Dose: 1 mg Documented by: FRED Magnesium Hydroxide (Magnesium Hydroxide 30 Ml Udc) 30 ml PO DAILY PRN PRN Reason: Constipation Metoclopramide HCl (Metoclopramide 10 Mg/2 Ml Inj) 10 mg IV Q6HR PRN PRN Reason: Nausea And Vomiting Ondansetron HCl (Ondansetron 4 Mg/2 Ml Inj) 4 mg IV Q4HR PRN PRN Reason: Nausea And Vomiting Last Admin: 06/09/21 19:37 Dose: 4 mg Documented by: Admin: 06/09/21 12:52 Dose: 4 mg Documented by: JEANA Quetiapine Fumarate (Quetiapine 100 Mg Tablet) 100 mg PO BEDTIME MARYJANE Last Admin: 06/09/21 20:40 Dose: 100 mg Documented by: FRED Thiamine HCl (Thiamine 100 Mg Tablet) 100 mg PO DAILY MARYJANE Discontinued Medications Fluoxetine HCl (Fluoxetine 20 Mg Capsule) 40 mg PO DAILY MARYJANE Sodium Chloride (Normal Saline 0.9%) 1,000 mls @ 1,000 mls/hr IV BOLUS ONE Stop: 06/09/21 07:06 Last Infusion: 06/09/21 08:40 Dose: 0 mls/hr Documented by: Admin: 06/09/21 06:14 Dose: 1,000 mls/hr Documented by: IRA Magnesium Sulfate (Magnesium Sulfate) 2 gm in 50 mls @ 25 mls/hr IV NOW ONE Stop: 06/09/21 14:02 Last Admin: 06/09/21 13:08 Dose: 25 mls/hr Documented by: JEANA Cosigned by: CLAUDIA Thiamine HCl 100 mg/ Sodium (Chloride) 101 mls @ 404 mls/hr IV NOW ONE Stop: 06/09/21 12:29 Last Admin: 06/09/21 12:42 Dose: 404 mls/hr Documented by: JEANA Lorazepam (Lorazepam 2 Mg/Ml Inj) 1 mg IV NOW ONE Stop: 06/09/21 06:08 Last Admin: 06/09/21 06:14 Dose: 1 mg Documented by: IRA Lorazepam (Lorazepam 2 Mg/Ml Inj) 1 mg IV NOW ONE Stop: 06/09/21 06:20 Last Admin: 06/09/21 06:24 Dose: 1 mg Documented by: IRA Phenobarbital (Phenobarbital 65 Mg/Ml Vial) 130 mg IV NOW ONE Stop: 06/09/21 07:52 Last Admin: 06/09/21 07:58 Dose: 130 mg Documented by: NIA Vital Signs Vital signs: Vital Signs - 8 hr 06/09/21 06:09 06/09/21 06:10 06/09/21 06:30 Temperature 97.7 F Pulse Rate 106 H 82 88 Respiratory Rate 20 Blood Pressure 150/85 H Pulse Oximetry 98 99 100 <Dante Aden DO - Last Filed: 06/09/21 19:05> Course Course Narrative: Seven for Alcohol Withdrawal from [facility] on 06/09/2021 All calculations should be rechecked by clinician prior to use RESULT SUMMARY: 22 points Patients with scores >=0 frequently require medication for withdrawal, and may also require admission to the ICU for observation for seizures or development of delirium tremens, and more frequent medication dosing. INPUTS: Nausea/vomiting ?> 4 = Intermittent nausea with dry heaves Tremor ?> 4 = Moderate, with patient's arms extended Paroxysmal sweats ?> 3 = (More severe symptoms) Anxiety ?> 4 = Moderately anxious, or guarded, so anxiety is inferred Agitation ?> 4 = Moderately fidgety and restless Tactile disturbances ?> 0 = None Auditory disturbances ?> 0 = Not present Visual disturbances ?> 0 = Not present Headache/fullness in head ?> 3 = Moderate Orientation/clouding of sensorium ?> 0 = Oriented, can do serial additions Orders Ordered: ED Orders 06/09/21 20:37 Urine Drug Screen, Rapid Stat Acetaminophen (Acetaminophen 325 Mg Tablet) 650 mg PO Q6HR PRN PRN Reason: Fever/Mild Pain (1-3) Last Admin: 06/09/21 20:57 Dose: 650 mg Documented by: Admin: 06/09/21 15:26 Dose: 650 mg Documented by: FRED Enoxaparin Sodium (Enoxaparin 40 Mg/0.4 Ml Syringe) 40 mg SUBCUT DAILY MARYJANE Fluoxetine HCl (Fluoxetine 20 Mg Capsule) 40 mg PO DAILY MARYJANE Last Admin: 06/09/21 20:57 Dose: 40 mg Documented by: FRED Folic Acid (Folic Acid 1 Mg Tablet) 1 mg PO DAILY MARYJANE Dextrose/Sodium Chloride (Dextrose 5%-0.9% Ns) 1,000 mls @ 100 mls/hr IV CONT MARYJANE Last Admin: 06/10/21 01:01 Dose: 100 mls/hr Documented by: LUIS EDUARDO Infusion: 06/10/21 00:51 Dose: 100 mls/hr Documented by: LUIS EDUARDO Admin: 06/09/21 14:51 Dose: 100 mls/hr Documented by: JEANA Lorazepam (Lorazepam 2 Mg/Ml Inj) 0 mg IV CIWAPRN PRN; Protocol PRN Reason: Alcohol Withdrawal Last Admin: 06/09/21 13:07 Dose: 2 mg Documented by: Admin: 06/09/21 12:42 Dose: 1 mg Documented by: JEANA Lorazepam (Lorazepam 1 Mg Tablet) 0 mg PO CIWAPRN PRN; Protocol PRN Reason: Alcohol Withdrawal Last Admin: 06/09/21 19:37 Dose: 1 mg Documented by: Admin: 06/09/21 15:23 Dose: 1 mg Documented by: FRED Magnesium Hydroxide (Magnesium Hydroxide 30 Ml Udc) 30 ml PO DAILY PRN PRN Reason: Constipation Metoclopramide HCl (Metoclopramide 10 Mg/2 Ml Inj) 10 mg IV Q6HR PRN PRN Reason: Nausea And Vomiting Ondansetron HCl (Ondansetron 4 Mg/2 Ml Inj) 4 mg IV Q4HR PRN PRN Reason: Nausea And Vomiting Last Admin: 06/09/21 19:37 Dose: 4 mg Documented by: Admin: 06/09/21 12:52 Dose: 4 mg Documented by: JEANA Quetiapine Fumarate (Quetiapine 100 Mg Tablet) 100 mg PO BEDTIME MARYJANE Last Admin: 06/09/21 20:40 Dose: 100 mg Documented by: FRED Thiamine HCl (Thiamine 100 Mg Tablet) 100 mg PO DAILY MARYJANE Discontinued Medications Fluoxetine HCl (Fluoxetine 20 Mg Capsule) 40 mg PO DAILY MARYJANE Sodium Chloride (Normal Saline 0.9%) 1,000 mls @ 1,000 mls/hr IV BOLUS ONE Stop: 06/09/21 07:06 Last Infusion: 06/09/21 08:40 Dose: 0 mls/hr Documented by: Admin: 06/09/21 06:14 Dose: 1,000 mls/hr Documented by: IRA Magnesium Sulfate (Magnesium Sulfate) 2 gm in 50 mls @ 25 mls/hr IV NOW ONE Stop: 06/09/21 14:02 Last Admin: 06/09/21 13:08 Dose: 25 mls/hr Documented by: JEANA Cosigned by: CLAUDIA Thiamine HCl 100 mg/ Sodium (Chloride) 101 mls @ 404 mls/hr IV NOW ONE Stop: 06/09/21 12:29 Last Admin: 06/09/21 12:42 Dose: 404 mls/hr Documented by: JEANA Lorazepam (Lorazepam 2 Mg/Ml Inj) 1 mg IV NOW ONE Stop: 06/09/21 06:08 Last Admin: 06/09/21 06:14 Dose: 1 mg Documented by: IRA Lorazepam (Lorazepam 2 Mg/Ml Inj) 1 mg IV NOW ONE Stop: 06/09/21 06:20 Last Admin: 06/09/21 06:24 Dose: 1 mg Documented by: IRA Phenobarbital (Phenobarbital 65 Mg/Ml Vial) 130 mg IV NOW ONE Stop: 06/09/21 07:52 Last Admin: 06/09/21 07:58 Dose: 130 mg Documented by: NIA Vital Signs Vital signs: Vital Signs - 8 hr 06/09/21 06:09 06/09/21 06:10 06/09/21 06:30 Temperature 97.7 F Pulse Rate 106 H 82 88 Respiratory Rate 20 Blood Pressure 150/85 H Pulse Oximetry 98 99 100 MDM - Alcohol <Ev Sanders DO - Last Filed: 06/10/21 02:40> Lab Data Result diagrams: 06/09/21 06:15 06/09/21 06:15 Labs: Lab Results 06/09/21 06/09/21 06/09/21 Range/Units 06:05 06:15 06:15 WBC 5.1 (4.5-11.0) X10^3/uL RBC 4.63 (4.0-5.2) X10^6/uL Hgb 12.7 (12.0-16.0) g/dL Hct 38.4 (36-46) % MCV 82.8 (80-100) fL MCH 27.5 (26-34) PG MCHC 33.2 (30-36) % RDW 21.0 H (11.6-14.8) % Plt Count 557 H (150-400) X10^3/uL Neut % (Auto) 58.1 (50-75) % Lymph % (Auto) 30.9 (25-40) % [place] % (Auto) 9.9 (3-14) % Eos % (Auto) 0.4 L (2-4) % Baso % (Auto) 0.7 (0-2) % Neut # (Auto) 3000 (2632-0294) /uL Lymph # (Auto) 1600 (7319-5386) /uL [place] # (Auto) 500 (0-900) /uL Eos # (Auto) 0 (0-450) /uL Baso # (Auto) 0 (0-100) /uL RBC Morphology See below Hypochromasia 1+ H Anisocytosis 2+ H Sodium 129 L (137-145) mmol/L Potassium 4.5 (3.4-5.1) mmol/L Chloride 86 L (98-107) mmol/L Carbon Dioxide 24 (22-32) mmol/L BUN 12 (7-17) mg/dL Creatinine 0.58 (0.52-1.04) mg/dL Estimated GFR > 60.0 (>60) mL/min BUN/Creatinine Ratio 20.7 (6-22) Glucose 86 (70-100) mg/dL Calcium 8.8 (8.4-10.2) mg/dL Magnesium 1.6 (1.6-2.3) mg/dL Total Bilirubin 0.9 (0.2-1.3) mg/dL Conjugated Bilirubin 0.0 (0.0-0.3) md/dL Unconjugated Bilirubin 0.7 (0.0-1.1) mg/dL AST 62 H (14-36) IU/L ALT 39 H (<35) IU/L Alkaline Phosphatase 111 (38-126) U/L Total Protein 7.8 (6.3-8.2) g/dL Albumin 5.0 (3.5-5.0) g/dL Globulin 2.8 (1.7-4.1) g/dL Albumin/Globulin Ratio 1.8 (1.0-2.8) Lipase 89 (23-300) U/L Ethyl Alcohol 208 H ( - 10) mg/dL SARS-CoV-2 (PCR) Negative (Negative) MDM Narrative Medical decision making narrative: This is a 55-year-old female who comes possible withdrawal seizure but this seems less likely as she does have an elevated alcoholic 200, she does not appear to be postictal and is quite agile moving about the bed. Patient labs do show hyponatremia although improved from prior. Platelets are also elevated today with normal hemoglobin. Patient is mildly hypertensive but not tachycardic. Imaging is pending and patient is signed out to Dr. Sanabria while awaiting the rest of her workup. <Dante Aden DO - Last Filed: 06/09/21 19:05> Lab Data Labs: Lab Results 06/09/21 06/09/21 06/09/21 Range/Units 06:05 06:15 06:15 WBC 5.1 (4.5-11.0) X10^3/uL RBC 4.63 (4.0-5.2) X10^6/uL Hgb 12.7 (12.0-16.0) g/dL Hct 38.4 (36-46) % MCV 82.8 (80-100) fL MCH 27.5 (26-34) PG MCHC 33.2 (30-36) % RDW 21.0 H (11.6-14.8) % Plt Count 557 H (150-400) X10^3/uL Neut % (Auto) 58.1 (50-75) % Lymph % (Auto) 30.9 (25-40) % [place] % (Auto) 9.9 (3-14) % Eos % (Auto) 0.4 L (2-4) % Baso % (Auto) 0.7 (0-2) % Neut # (Auto) 3000 (0537-0228) /uL Lymph # (Auto) 1600 (5941-5576) /uL [place] # (Auto) 500 (0-900) /uL Eos # (Auto) 0 (0-450) /uL Baso # (Auto) 0 (0-100) /uL RBC Morphology See below Hypochromasia 1+ H Anisocytosis 2+ H Sodium 129 L (137-145) mmol/L Potassium 4.5 (3.4-5.1) mmol/L Chloride 86 L (98-107) mmol/L Carbon Dioxide 24 (22-32) mmol/L BUN 12 (7-17) mg/dL Creatinine 0.58 (0.52-1.04) mg/dL Estimated GFR > 60.0 (>60) mL/min BUN/Creatinine Ratio 20.7 (6-22) Glucose 86 (70-100) mg/dL Calcium 8.8 (8.4-10.2) mg/dL Magnesium 1.6 (1.6-2.3) mg/dL Total Bilirubin 0.9 (0.2-1.3) mg/dL Conjugated Bilirubin 0.0 (0.0-0.3) md/dL Unconjugated Bilirubin 0.7 (0.0-1.1) mg/dL AST 62 H (14-36) IU/L ALT 39 H (<35) IU/L Alkaline Phosphatase 111 (38-126) U/L Total Protein 7.8 (6.3-8.2) g/dL Albumin 5.0 (3.5-5.0) g/dL Globulin 2.8 (1.7-4.1) g/dL Albumin/Globulin Ratio 1.8 (1.0-2.8) Lipase 89 (23-300) U/L Ethyl Alcohol 208 H ( - 10) mg/dL SARS-CoV-2 (PCR) Negative (Negative) Discharge Plan Departure Patient Disposition: Admitted As Inpatient Clinical Impression: Alcoholic intoxication Qualifiers: Complication of substance-induced condition: uncomplicated Qualified Code(s): F10.920 - Alcohol use, unspecified with intoxication, uncomplicated Vomiting Qualifiers: Vomiting type: unspecified Vomiting Intractability: intractable Nausea presence: with nausea Qualified Code(s): R11.2 - Nausea with vomiting, unspecified Admit Date/Time: 06/09/21 08:44 Admit Provider: David Ferraro
[2021-06-09] MEDS: LORazepam 2 MG/ML INJ 1 MG IV ×2 (06:14→06:24)
[2021-06-09] MEDS: SODIUM CHLORIDE 0.9% 1,000 ML 1000 ML IV (06:14)
--- NOTE | 2021-06-09 06:17 | PC.NURSE ---
2 mg Ativan given IV in divided doses per verbal order from Dr Sanedrs for pt flailing in bed, unable to lie still to facilitiate care, C/O withdrawal.
[2021-06-09 06:24] LABS: COVID19 -Nasal RAPID Negative (Negative)
[2021-06-09 06:30] LABS: Add Manual Diff / Slide Review NO; Basophils Absolute Auto 0 /uL (0-100); Basophils Percent Auto 0.7 % (0-2); Eosinophils Absolute Auto 0 /uL (0-450); Eosinophils Percent Auto 0.4 % (2-4); Hematocrit 38.4 % (36-46); Hemoglobin 12.7 g/dL (12.0-16.0); Lymphocytes Absolute Auto 1600 /uL (1100-4500); Lymphocytes Percent Auto 30.9 % (25-40); Mean Corpuscular HGB Conc 33.2 % (30-36); Mean Corpuscular Hemoglobin 27.5 PG (26-34); Mean Corpuscular Volume 82.8 fL (80-100); Monocytes Absolute Auto 500 /uL (0-900); Monocytes Percent Auto 9.9 % (3-14); Neutrophils Absolute Auto 3000 /uL (1500-7000); Neutrophils Percent Auto 58.1 % (50-75); Platelet Count 557 X10^3/uL (150-400); Red Blood Cell Count 4.63 X10^6/uL (4.0-5.2); White Blood Cell Count 5.1 X10^3/uL (4.5-11.0)
[2021-06-09 06:38] LABS: Alanine Aminotransferase 39 IU/L (<35); Albumin Globulin Ratio 1.8 (1.0-2.8); Alkaline Phosphatase 111 U/L (38-126); Aspartate Aminotransferase 62 IU/L (14-36); BUN Creatinine Ratio 20.7 (6-22); Bilirubin Total 0.9 mg/dL (0.2-1.3); Bilirubin Unconjugated 0.7 mg/dL (0.0-1.1); Blood Urea Nitrogen 12 mg/dL (7-17); Calcium 8.8 mg/dL (8.4-10.2); Carbon Dioxide 24 mmol/L (22-32); Chloride 86 mmol/L (98-107); Estimated Glomerular Filt Rate > 60.0 mL/min (>60); Ethanol (ETOH) 208 mg/dL; Globulin 2.8 g/dL (1.7-4.1); Glucose 86 mg/dL (70-100); HEMOLYSIS < 15 (0-50); Lipase 89 U/L (23-300); Magnesium 1.6 mg/dL (1.6-2.3); Potassium 4.5 mmol/L (3.4-5.1); Sodium 129 mmol/L (137-145); Total Protein 7.8 g/dL (6.3-8.2)
[2021-06-09 06:58] LABS: Anisocytosis 2+; Hypochromasia 1+
--- NOTE | 2021-06-09 07:01 | PC.NURSE ---
Pt sleeping at this time. Respirations even and unlabored.
[2021-06-09] MEDS: PHENobarbital 65 MG/ML VIAL 130 MG IV (07:58)
[2021-06-09] MEDS: THIAMINE 100 MG in SODIUM CHLORIDE 0.9% 100 ML 404 ML IV (12:42)
[2021-06-09] MEDS: LORazepam 2 MG/ML INJ IV ×2 (12:42→13:07)
[2021-06-09] MEDS: ONDANSETRON 4 MG/2 ML INJ IV ×2 (12:52→19:37)
[2021-06-09] MEDS: MAGNESIUM SULFATE 2 GM/50 ML PIGGYBACK IV (13:08)
--- NOTE | 2021-06-09 14:38 | P.HP_ITS ---
History of Present Illness History of Present Illness Date Patient Seen: 06/09/21 Time Patient Seen: 11:30 Chief complaint: withdrawal/ seizure Narrative: Patient is a 55-year-old female with chronic alcohol dependency, very recently came home from acute rehab, who presented to the emergency department with symptoms of alcohol withdrawal. Patient states she did resume drinking after released from rehab but try to cut back over the past week. Last drink was yesterday. She typically consumes 2/5 per day. She has history of DTs. She presented to ED with acute withdrawal, recurrent vomiting, shaky and anxious. Initial CIWA of 22. She got a couple doses of lorazepam followed by phenobarbital. Patient History Medical History Alcohol abuse Anxiety Depression Family & Social History Family History Mother Hypertension Social History: household members none lives independently Yes Safety & Behavioral: Feels Safe in Current Yes Environment Suicidal Ideation Description None Tobacco & Substance use: Smoking Status Never smoker alcohol intake frequency 3 or more drinks per day Substance Use Type does not use Meds Home Medications and Allergies Home Medications Medication Instructions Recorded Confirmed Type fluoxetine 40 mg capsule 40 mg PO QAM 03/28/21 03/28/21 History quetiapine 100 mg tablet (Seroquel) 100 mg PO BEDTIME 03/28/21 03/28/21 History Allergies Allergy/AdvReac Type Severity Reaction Status Date / Time No Known Drug Allergies Allergy Verified 06/09/21 06:32 Review of Systems Review of Systems Narrative: Complete ROS negative other than stated Exam Vital Signs (past 8 hours): - 06/09/21 07:00 06/09/21 07:30 06/09/21 08:00 Pulse Rate 80 90 86 Respiratory Rate Blood Pressure Pulse Oximetry 98 98 98 06/09/21 08:30 06/09/21 08:34 06/09/21 08:35 Pulse Rate 86 99 H 92 H Respiratory Rate 16 Blood Pressure 124/61 124/61 Pulse Oximetry 99 98 97 06/09/21 09:00 06/09/21 09:30 06/09/21 10:00 Pulse Rate 94 H 92 H 90 Respiratory Rate Blood Pressure 108/65 118/68 132/79 Pulse Oximetry 96 99 98 06/09/21 10:19 06/09/21 10:30 06/09/21 11:00 Pulse Rate 104 H 89 98 H Respiratory Rate Blood Pressure 120/61 Pulse Oximetry 94 99 98 06/09/21 13:07 Pulse Rate 103 H Respiratory Rate 20 Blood Pressure 130/68 Pulse Oximetry Oxygen Delivery Method Room Air Narrative Exam Narrative: General: Awake very anxious appearing and tremulous female HEENT: Pupils equal and reactive, nontraumatic Neck: No lymphadenopathy Lungs: Clear to auscultation Heart: Regular rhythm with mild tachycardia Abdomen: Soft and nontender, no HSM Extremities: No edema Neurological: Affect anxious, speech normal, well oriented, shaking Objective Labs Result Diagrams: 06/09/21 06:15 06/09/21 06:15 Labs: Laboratory Results - last 24 hr 06/09/21 06/09/21 06/09/21 06:05 06:15 06:15 WBC 5.1 RBC 4.63 Hgb 12.7 Hct 38.4 MCV 82.8 MCH 27.5 MCHC 33.2 RDW 21.0 H Plt Count 557 H Neut % (Auto) 58.1 Lymph % (Auto) 30.9 [place] % (Auto) 9.9 Eos % (Auto) 0.4 L Baso % (Auto) 0.7 Neut # (Auto) 3000 Lymph # (Auto) 1600 [place] # (Auto) 500 Eos # (Auto) 0 Baso # (Auto) 0 RBC Morphology See below Hypochromasia 1+ H Anisocytosis 2+ H Sodium 129 L Potassium 4.5 Chloride 86 L Carbon Dioxide 24 BUN 12 Creatinine 0.58 Estimated GFR > 60.0 BUN/Creatinine Ratio 20.7 Glucose 86 Calcium 8.8 Magnesium 1.6 Total Bilirubin 0.9 Conjugated Bilirubin 0.0 Unconjugated Bilirubin 0.7 AST 62 H ALT 39 H Alkaline Phosphatase 111 Total Protein 7.8 Albumin 5.0 Globulin 2.8 Albumin/Globulin Ratio 1.8 Lipase 89 Ethyl Alcohol 208 H SARS-CoV-2 (PCR) Negative Assessment & Plan Assessment & Plan narrative: 1. Acute alcohol withdrawal -ethyl alcohol 208 in ED but yet in withdrawal -follow CIWA protocol using lorazepam -thiamin 200 mg IV, magnesium 2 g IV -daily thiamin and folate by mouth -D5 NS at 100 cc/hour -Zofran/Reglan as needed nausea and vomiting -diet as tolerated -check INR -continue home medications DVT prophylaxis: Lovenox Time Spent With Patient Critical Care time: I spent a total of [] minutes of critical care time on this patient's care today; this time is exclusive of procedural time.
[2021-06-09] MEDS: DEXTROSE 5%-0.9% NS 1,000 ML 100 ML IV (14:51)
[2021-06-09] MEDS: LORazepam 1 MG TABLET PO ×2 (15:23→19:37)
[2021-06-09] MEDS: ACETAMINOPHEN 325 MG TABLET 650 MG PO ×2 (15:26→20:57)
--- NOTE | 2021-06-09 17:12 | PC.NURSE ---
Addendum entered by Prisca Cordova R.N. 06/09/21 22:38: bladder scan 447, provider aware. pt very sleepy, falls asleep in middle of conversation. Original Note: pt currently sleeping right now. IVF infusing. bed alarm active.
[2021-06-09] MEDS: QUETIAPINE 100 MG TABLET PO (20:40)
[2021-06-09 20:50] LABS: Appearance Urine UA SL CLOUDY; Bilirubin Urine UA NEGATIVE (NEGATIVE); Color Urine UA YELLOW; Glucose Urine UA NEGATIVE (Negative); Ketones Urine UA 1+ (NEGATIVE); Leukocyte Esterase Urine UA 2+ (NEGATIVE); Nitrite Urine UA NEGATIVE (Negative); Occult Blood Urine UA 1+ (Negative); Protein Urine UA 1+ (Negative); Urobilinogen Urine UA 0.2 E.U./dL (0.2)
[2021-06-09 20:52] LABS: pH Urine UA 6.5 (4.5-8.0)
[2021-06-09] MEDS: FLUoxetine 20 MG CAPSULE 40 MG PO (20:57)
[2021-06-09 20:58] LABS: Amorphous Sediment Urine 1+; Bacteria Urine Moderate (10-30); Culture Indicated Urine Specimen Cultured; Mucus Urine 1+ (Negative); RBC Urine 1-5/HPF (0-5/HPF); Squamous Epithelial Cell Urine 1-5 /HPF (0-5/HPF); WBC Urine 10-30/HPF (0-5/HPF)
[2021-06-09 21:03] LABS: UR Morphine/Opiate cutoff 300 Negative (Negative); Ur Creatinine Normal (Normal); Ur Specific Gravity Normal (Normal); Urine Amphetamines Negative (Negative); Urine Barbiturates Negative (Negative); Urine Benzodiazepines Positive (Negative); Urine Cocaine Negative (Negative); Urine MDMA Negative (Negative); Urine Methadone Negative (Negative); Urine Methamphetamines Negative (Negative); Urine Oxycodone Negative (Negative); Urine Phencyclidine Negative (Negative); Urine Tetrahydrocannabinol Negative (Negative); Urine Tricyclic Antidepressant Negative (Negative); Urine pH Normal (Normal)
--- NOTE | 2021-06-09 22:30 | PC.NURSE ---
Bladder scanned patient at 2220. Scan showed 447 mL in urine. Notified RN. Attempted to toilet patient but she was unable to void.
[2021-06-10] VITALS (8 sets, daily range): BP systolic 120–150; BP diastolic 68–93; PULSE 58–85; RESP 16–18; TEMP 35.9–36.4; O2SAT 95–98
[2021-06-10] MEDS: DEXTROSE 5%-0.9% NS 1,000 ML 100 ML IV ×2 (01:01→17:11)
[2021-06-10] MEDS: ACETAMINOPHEN 325 MG TABLET 650 MG PO ×3 (04:02→17:56)
[2021-06-10] MEDS: LORazepam 1 MG TABLET PO ×2 (04:02→12:27)
[2021-06-10] MEDS: THIAMINE 100 MG TABLET PO (08:03)
[2021-06-10] MEDS: FOLIC ACID 1 MG TABLET PO (08:03)
[2021-06-10] MEDS: ENOXAPARIN 40 MG/0.4 ML SYRINGE SUBCUT (08:04)
[2021-06-10] MEDS: FLUoxetine 20 MG CAPSULE 40 MG PO (08:04)
--- NOTE | 2021-06-10 15:16 | CM.DANOTE ---
Patient is a 55 yo female who was admitted on 06/09/21 for ETOH withdrawal. Pt has [facility] for insurance and her PCP is not listed. EMR was reviewed. Per MD, pt with ETOH w/d and had recent relapse and UDS positive for benzos and 208 alcohol level. Pt was last admitted to [facility] in March 2021 this year for similar and discharged home with outpt ETOH resources as she declined Inpt Tx at that time as she had just started a new job. Pt then had multiple ED visits the past month and SW met bedside with pt and confirmed the information below that ED JET HANDLER Niharika gathered at a recent ED visit: Patient was went to detox at [facility] in [place] on 04/10/21 Current Behavioral Health Provider(s) Psychiatrist Dr. Anay Rivas In [place], [place] (Ph. # [phone]) Patient endorses that pscyhiatrist prescribes medication and patient has missed the last three phone sessions. Patient endorses she is prescribed Seraqual and Trazadone. Treatment center in [facility], but left after a few weeks. Patient endorses she has been to detox 4 times in the last 4 weeks and last seizure was 2.5 years ago Longest Period of Sobriety 20 years (about 15 years ago). Patient endorses her mother, father, brother, and sister live in [place] and she reports that they are her supports but do not know about her JUAREZ. Patient denies HI and self harm. Patient endorses SI and states she thinks about walking in front of a train a few times a week. Patient endorses she would walk in front of a train if her mother and father dies. Patient endorses that she has a great life. Patient endorses she has been drinking 12-14 drinks daily, but was sober for a week after detox on 04/10/21. Patient endorses that she is seeking to go to inpatient treatment. Patient states that she would like to go to [facility] again for detox and indicates that her goals will be to be transferred to inpatient treatment. SW discussed pt's plan at d/c and she states that her father is now involved in her tx and coordinating care and she is scheduled to start outpt ETOH tx at [facility] in [place] and her father is helping to make sure that she gets her prescribed Mental Health rx from her Psychiatrist in [place]. Pt's plan is to establish care with psychiatrist here locally for ongoing med management and support with her needs. SW attempted to reach out to local Psychiatrists per pt's request and called the following: [facility]: currently at capacity and not accepting [facility]: at capacity for psychiatry and not accepting [facility] [place] [facility]: left [facility] in [facility]: at capacity for psychiatry SW ran out of time to call other psychiatrists offices. Plan: SW to follow closely for likely plan of d/c home with outpt ETOH tx set up and possibly providing pt with a list of local psychiatrists that take [facility] for establishing here locally for med management. CHANDLER Saldaña Discharge Planning/Care Management CM Discharge Assessment Start: 06/10/21 15:14 Freq: Status: Active Protocol: Document 06/10/21 15:14 BF (Rec: 06/10/21 15:16 BF [id number]) Discharge Planning Assessment Assigned Fax Machine Repairer CHANDLER Doss DPOA/Assigned Designee Name none Advance Directives? No History Provided By Patient,Medical Record Has Patient been admitted in last 30 No days? Comment Last admission in March 2021 for similar Prior Living Arrangements House Household Members none Type of transporation used prior to Drives own vehicle admit Independent with ADL's Yes Is patient alert and oriented? Yes Caregiver for Another No Barriers to Discharge No Discharge Plan Home Transportation Arrangement father plans to provide transport home Referrals Initiated Other Additional Comment Pt hopeful to find local psychiatrist for med management Review Status In Process Please Provide Date Initial DC 06/10/21 Assessment Was Performed Next Review Type Continued Stay Review
--- NOTE | 2021-06-10 15:18 | PC.NURSE ---
Pt care resumed this a.m. She is awakened for V.S. and immediately asking for pain and anxiety medications. Upon reassessment pt continued to sleep. Allowed to rest until breakfast and then she awakened and eating 50% of meal. She denies n/V slightly after lunch complains of severe anxiety and is requesting ativan. CIWA score of 8 and given 1mg po ativan. She sleeps throughout the morning and then agrees to shower this afternoon. Pt c/o L chest pain this afternoon worsening with touch and breathing in. MD had noted previously and appeared to be related to muscle tension ( pt states has been bothering her over the last 4 days). Pt states she has breast implants, and she is concerned about the L chest. Breasts are symmetrical and intact. MD notified of 6/10 pain after tylenol, not improved with heat and warm shower. EKG with troponins ordered WNL. SR on telemetry. Continuous monitoring
[2021-06-10] MEDS: cefTRIAXone 1,000 MG in SODIUM CHLORIDE 0.9% 100 ML 200 ML IV (15:26)
[2021-06-10 15:38] LABS: Troponin I < 0.012 ng/mL (0.01-0.034)
[2021-06-10] MEDS: PANTOPRAZOLE DR 20 MG TABLET PO (15:58)
[2021-06-10] MEDS: CALCIUM CARBONATE 500 MG TAB PO (16:27)
--- NOTE | 2021-06-10 17:57 | PM.PN.1 ---
Subjective Subjective Date Patient Seen: 06/10/21 Time Patient Seen: 08:00 Interval history: Today she still feels like she is withdrawing, but improved from yesterday. Has nausea, chest pain that is tender to touch, tremors, anxiousness. Exam Vital Signs (past 8 hours): - 06/10/21 12:00 06/10/21 14:00 06/10/21 15:35 Temperature 97.4 F L 96.6 F L Pulse Rate 82 85 84 Respiratory Rate 16 18 18 Blood Pressure 121/73 130/68 132/87 Pulse Oximetry 98 98 Oxygen Delivery Method Room Air Oxygen Flow Rate 0 Narrative Exam Narrative: General:? Awake very anxious appearing and tremulous female HEENT: Pupils equal and reactive, nontraumatic Neck:? No lymphadenopathy Lungs:? Clear to auscultation Heart:? Regular rhythm with mild tachycardia Abdomen:? Soft and nontender, no HSM Extremities:? No edema Neurological:? Affect anxious, speech normal, well oriented, shaking Objective Labs Result Diagrams: 06/09/21 06:15 06/09/21 06:15 Labs: Laboratory Results - last 24 hr 06/09/21 06/09/21 06/10/21 20:37 20:37 15:09 Troponin I < 0.012 Urine Color Yellow Urine Appearance Sl cloudy Urine pH 6.5 Ur Specific [place] 1.020 Urine Protein 1+ H Urine Glucose (UA) Negative Urine Ketones 1+ H Urine Occult Blood 1+ H Urine Nitrate Negative Urine Bilirubin Negative Urine Urobilinogen 0.2 Ur Leukocyte Esterase 2+ H Urine RBC 1-5/hpf Urine WBC 10-30/hpf H Ur Squamous Epith Cells 1-5 /hpf Amorphous Sediment 1+ Urine Bacteria Moderate (10-30) H Urine Mucus 1+ H Ur Culture Indicated? Specimen cultured U Opiates 300ng/mL cut Negative Ur Oxycodone Screen Negative Urine Methadone Screen Negative Ur Barbiturates Screen Negative U Tricyclic Antidepress Negative Ur Phencyclidine Scrn Negative Ur Amphetamines Screen Negative U Methamphetamines Scrn Negative Ur MDMA Scrn (Ecstasy) Negative U Benzodiazepines Scrn Positive H Urine Cocaine Screen Negative U Marijuana (THC) Screen Negative PFSH Medical History Alcohol abuse Anxiety Depression Family History Mother Hypertension Social History household members: none lives independently: Yes Smoking Status: Never smoker Assessment & Plan Assessment & Plan narrative: 1.? Acute alcohol withdrawal -ethyl alcohol 208 in ED but yet in withdrawal -follow CIWA protocol using lorazepam -daily thiamin and folate -D5 NS at 100 cc/hour -Zofran/Reglan as needed nausea and vomiting -diet as tolerated -check INR -continue home medications 2. Chest pain -reproducible with palpation -EKG showed no acute ischemia, troponin negative -started protonix for possible reflux 3. UTI -started IV ceftriaxone for group B strep DVT prophylaxis: Lovenox Time Spent With Patient Critical Care time: I spent a total of [] minutes of critical care time on this patient's care today; this time is exclusive of procedural time.
[2021-06-10] MEDS: QUETIAPINE 100 MG TABLET PO (20:47)
[2021-06-11] VITALS (11 sets, daily range): BP systolic 111–152; BP diastolic 62–104; PULSE 71–90; RESP 16–20; TEMP 36.1–36.6; O2SAT 97–100
[2021-06-11] MEDS: ACETAMINOPHEN 325 MG TABLET 650 MG PO ×4 (00:36→20:30)
[2021-06-11] MEDS: DEXTROSE 5%-0.9% NS 1,000 ML 100 ML IV ×3 (03:16→19:43)
[2021-06-11 05:47] LABS: Hematocrit 32.7 % (36-46); Hemoglobin 10.5 g/dL (12.0-16.0); Mean Corpuscular Hemoglobin 27.1 PG (26-34); Mean Corpuscular Volume 84.8 fL (80-100); Platelet Count 269 X10^3/uL (150-400); Red Blood Cell Count 3.86 X10^6/uL (4.0-5.2); Red Cell Distribution Width 20.8 % (11.6-14.8); White Blood Cell Count 2.3 X10^3/uL (4.5-11.0)
[2021-06-11 05:51] LABS: BUN Creatinine Ratio 15.6 (6-22); Blood Urea Nitrogen 7 mg/dL (7-17); Calcium 8.3 mg/dL (8.4-10.2); Carbon Dioxide 31 mmol/L (22-32); Chloride 101 mmol/L (98-107); Estimated Glomerular Filt Rate > 60.0 mL/min (>60); Glucose 96 mg/dL (70-100); HEMOLYSIS < 15 (0-50); Potassium 3.5 mmol/L (3.4-5.1); Sodium 134 mmol/L (137-145)
[2021-06-11] MEDS: PANTOPRAZOLE DR 20 MG TABLET PO (06:27)
[2021-06-11] MEDS: FOLIC ACID 1 MG TABLET PO (08:34)
[2021-06-11] MEDS: FLUoxetine 20 MG CAPSULE 40 MG PO (08:34)
[2021-06-11] MEDS: THIAMINE 100 MG TABLET PO (08:34)
[2021-06-11] MEDS: ENOXAPARIN 40 MG/0.4 ML SYRINGE SUBCUT (08:34)
[2021-06-11] MEDS: CALCIUM CARBONATE 500 MG TAB PO ×2 (08:34→20:30)
--- NOTE | 2021-06-11 10:41 | DI.CT.S_ITS ---
PROCEDURE: CT ANGIO CHEST PE PROTOCOL INDICATIONS: left sided chest pain with breathing, r/o PE TECHNIQUE: After the administration of intravenous contrast, 2 mm thick sections acquired from the pulmonary apices to the posterior costophrenic angles. 3-dimensional maximum intensity projection (MIP) coronal and sagittal reformats were then acquired through the thorax. For radiation dose reduction, the following was used: automated exposure control, adjustment of mA and/or kV according to patient size. COMPARISON: None. FINDINGS: Image quality: Excellent. Lungs and pleura: Mild left basilar atelectasis, otherwise no acute airspace opacity. No pleural effusions or pneumothorax. Central and peripheral airways are patent and normal in caliber. Mediastinum: Heart size is normal. No pericardial effusion. No mediastinal adenopathy by size criteria. Thoracic aorta and central pulmonary arteries are normal in size. Esophagus is normal in caliber. There is a moderate-sized hiatal hernia. Bones and chest wall: No suspicious bony lesions. No vertebral body compression fractures. No axillary or supraclavicular adenopathy by size criteria. Thyroid gland is normal. Bilateral breast implants appear intact. Abdomen: The liver is cirrhotic. There is a 4.3 centimeter cyst in the right lobe medially. 2 ill-defined areas of hypodensity, 1 in the left lobe of the liver measuring 3 centimeters and 1 in the right lobe of the liver centrally measuring 3.5 centimeters are indeterminate, cannot exclude neoplasm. Subcentimeter hypodensities peripherally in the right lobe are indeterminate. The liver is cirrhotic. IMPRESSION: 1. No pulmonary embolism. 2. Mild left basilar atelectasis, otherwise no acute abnormality of the chest. 3. Indeterminate hepatic hypodensities, recommend comparison to prior imaging or outpatient three-phase liver CT for further evaluation. 4. Moderate-sized hiatal hernia. 5. Postoperative changes of gastric banding. Dictated by: Siddhartha Ragsdale M.D. on 06/11/2021 at 11:04 Approved by: Siddhartha Ragsdale M.D. on 06/11/2021 at 11:12
--- NOTE | 2021-06-11 11:25 | CM.DPC ---
DCP Cont: Discussed patient during team rounds. She is continuing to have some anxiety, and is deemed not yet ready for discharge. Asked insurance account assistant, Raina, to look into psychiatrists that accept [facility]. She was able to find a Dr. Haji here in [place], a Dr. Srivastava i [facility], and a Dr. Frank in [facility] as well. Can provide this information to patient or her father. P: DCP to continue to follow. Plan is for patient to do outpatient treatment at [facility]. Layne Ding RN/News Photographer
[2021-06-11] MEDS: LORazepam 1 MG TABLET PO ×2 (13:36→17:32)
--- NOTE | 2021-06-11 15:55 | PM.PN.1 ---
Subjective Subjective Date Patient Seen: 06/11/21 Time Patient Seen: 08:00 Interval history: Today she is tearful. She is anxious. She is tremulous. She is complaining of left sided breast/chest pain. She says it is worse when she breathes, it also feels like it is possibly in the breast, or under the breast. Exam Vital Signs (past 8 hours): - 06/11/21 08:00 06/11/21 08:30 06/11/21 11:30 Temperature 96.9 F L 96.9 F L Pulse Rate 71 83 Respiratory Rate 16 16 Blood Pressure 151/104 H 137/62 Pulse Oximetry 99 99 99 06/11/21 14:15 Temperature Pulse Rate 90 Respiratory Rate 16 Blood Pressure 152/97 H Pulse Oximetry Oxygen Delivery Method Room Air Oxygen Flow Rate 0 Narrative Exam Narrative: General:? Awake very anxious appearing and tremulous female HEENT: Pupils equal and reactive, nontraumatic Neck:? No lymphadenopathy Lungs:? Clear to auscultation Heart:? Regular rhythm with mild tachycardia Abdomen:? Soft and nontender, no HSM Extremities:? No edema Neurological:? Affect anxious, speech normal, well oriented, shaking Objective Labs Result Diagrams: 06/11/21 05:17 06/11/21 05:17 Labs: Laboratory Results - last 24 hr 06/11/21 06/11/21 05:17 05:17 WBC 2.3 L D RBC 3.86 L Hgb 10.5 L Hct 32.7 L MCV 84.8 MCH 27.1 MCHC 32.0 RDW 20.8 H Plt Count 269 Sodium 134 L Potassium 3.5 Chloride 101 Carbon Dioxide 31 BUN 7 Creatinine 0.45 L Estimated GFR > 60.0 BUN/Creatinine Ratio 15.6 Glucose 96 Calcium 8.3 L PFSH Medical History (Updated 06/09/21 @ 08:12 by Dante Aden DO) Alcohol abuse Anxiety Depression Surgical History (Updated 06/11/21 @ 06:59 by Miryam Avendaño RN) Hx of breast augmentation Family History Mother Hypertension Social History household members: none lives independently: Yes Smoking Status: Never smoker Assessment & Plan Assessment & Plan narrative: 1.? Acute alcohol withdrawal -ethyl alcohol 208 in ED but yet in withdrawal -follow CIWA protocol using lorazepam -daily thiamin and folate -D5 NS at 100 cc/hour -Zofran/Reglan as needed nausea and vomiting -diet as tolerated -check INR -continue home medications 2. Chest pain -reproducible with palpation -EKG showed no acute ischemia, troponin negative -started protonix for possible reflux -CTA negative for acute cause -ordered tylenol, tramadol, naproxen, lido patch 3. UTI -started IV ceftriaxone for group B strep DVT prophylaxis: Lovenox Time Spent With Patient Critical Care time: I spent a total of [] minutes of critical care time on this patient's care today; this time is exclusive of procedural time.
[2021-06-11] MEDS: cefTRIAXone 1,000 MG in SODIUM CHLORIDE 0.9% 100 ML 200 ML IV (16:29)
[2021-06-11] MEDS: NAPROXEN 250 MG TABLET 500 MG PO (17:28)
[2021-06-11] MEDS: ONDANSETRON 4 MG/2 ML INJ IV (17:33)
[2021-06-11] MEDS: QUETIAPINE 100 MG TABLET PO (20:30)
[2021-06-12] VITALS (10 sets, daily range): BP systolic 112–133; BP diastolic 70–89; PULSE 70–86; RESP 12–18; TEMP 35.8–36.6; O2SAT 96–99
[2021-06-12] MEDS: ACETAMINOPHEN 325 MG TABLET 650 MG PO (04:12)
[2021-06-12 05:36] LABS: BUN Creatinine Ratio 10.9 (6-22); Blood Urea Nitrogen 6 mg/dL (7-17); Calcium 8.4 mg/dL (8.4-10.2); Carbon Dioxide 30 mmol/L (22-32); Chloride 104 mmol/L (98-107); Estimated Glomerular Filt Rate > 60.0 mL/min (>60); Glucose 95 mg/dL (70-100); HEMOLYSIS < 15 (0-50); Potassium 3.9 mmol/L (3.4-5.1); Sodium 137 mmol/L (137-145)
[2021-06-12 05:39] LABS: Hematocrit 32.3 % (36-46); Hemoglobin 10.2 g/dL (12.0-16.0); Mean Corpuscular HGB Conc 31.7 % (30-36); Mean Corpuscular Hemoglobin 27.3 PG (26-34); Mean Corpuscular Volume 86.1 fL (80-100); Platelet Count 249 X10^3/uL (150-400); Red Blood Cell Count 3.76 X10^6/uL (4.0-5.2); Red Cell Distribution Width 20.6 % (11.6-14.8); White Blood Cell Count 2.4 X10^3/uL (4.5-11.0)
[2021-06-12] MEDS: DEXTROSE 5%-0.9% NS 1,000 ML 100 ML IV ×2 (05:59→21:22)
[2021-06-12] MEDS: PANTOPRAZOLE DR 20 MG TABLET PO (06:23)
[2021-06-12] MEDS: FOLIC ACID 1 MG TABLET PO (08:52)
[2021-06-12] MEDS: CALCIUM CARBONATE 500 MG TAB PO ×2 (08:53→20:03)
[2021-06-12] MEDS: NAPROXEN 250 MG TABLET 500 MG PO ×2 (08:53→15:56)
[2021-06-12] MEDS: THIAMINE 100 MG TABLET PO (08:53)
[2021-06-12] MEDS: FLUoxetine 20 MG CAPSULE 40 MG PO (08:53)
[2021-06-12] MEDS: LIDOCAINE PATCH 1 EACH ADH..PATCH TOP (08:53)
[2021-06-12] MEDS: ENOXAPARIN 40 MG/0.4 ML SYRINGE SUBCUT (08:58)
[2021-06-12] MEDS: MULTIVITAMIN 1 TABLET 1 TAB PO (14:34)
[2021-06-12] MEDS: cefTRIAXone 1,000 MG in SODIUM CHLORIDE 0.9% 100 ML 200 ML IV (14:35)
[2021-06-12] MEDS: ONDANSETRON 4 MG/2 ML INJ IV (15:57)
[2021-06-12] MEDS: LORazepam 1 MG TABLET PO ×2 (16:05→20:03)
--- NOTE | 2021-06-12 18:59 | PM.PN.1 ---
Subjective Subjective Date Patient Seen: 06/12/21 Time Patient Seen: 08:00 Interval history: Today she says she feels anxious and shaky. Her breast pain is improving. Exam Vital Signs (past 8 hours): - 06/12/21 13:00 06/12/21 16:43 06/12/21 17:24 Temperature 96.5 F L 97.1 F L Pulse Rate 83 83 70 Respiratory Rate 16 16 14 Blood Pressure 123/73 132/81 Pulse Oximetry 97 99 Oxygen Delivery Method Room Air Oxygen Flow Rate 0 Narrative Exam Narrative: ?General:? Awake very anxious appearing and tremulous female HEENT: Pupils equal and reactive, nontraumatic Neck:? No lymphadenopathy Lungs:? Clear to auscultation Heart:? Regular rhythm with mild tachycardia Abdomen:? Soft and nontender, no HSM Extremities:? No edema Neurological:? Affect anxious, speech normal, well oriented, shaking Objective Labs Result Diagrams: 06/12/21 05:11 06/12/21 05:11 Labs: Laboratory Results - last 24 hr 06/12/21 06/12/21 05:11 05:11 WBC 2.4 L RBC 3.76 L Hgb 10.2 L Hct 32.3 L MCV 86.1 MCH 27.3 MCHC 31.7 RDW 20.6 H Plt Count 249 Sodium 137 Potassium 3.9 Chloride 104 Carbon Dioxide 30 BUN 6 L Creatinine 0.55 Estimated GFR > 60.0 BUN/Creatinine Ratio 10.9 Glucose 95 Calcium 8.4 PFSH Medical History (Updated 06/09/21 @ 08:12 by Dante Aden DO) Alcohol abuse Anxiety Depression Surgical History (Updated 06/11/21 @ 06:59 by Miryam Avendaño RN) Hx of breast augmentation Family History Mother Hypertension Social History household members: none lives independently: Yes Smoking Status: Never smoker Assessment & Plan Assessment & Plan narrative: .? Acute alcohol withdrawal -ethyl alcohol 208 in ED but yet in withdrawal -follow CIWA protocol using lorazepam -daily thiamin and folate -D5 NS at 100 cc/hour -Zofran/Reglan as needed nausea and vomiting -diet as tolerated -check INR -continue home medications 2. Chest pain -reproducible with palpation -EKG showed no acute ischemia, troponin negative -started protonix for possible reflux -CTA negative for acute cause -ordered tylenol, tramadol, naproxen, lido patch 3. UTI -started IV ceftriaxone for group B strep Time Spent With Patient Critical Care time: I spent a total of [] minutes of critical care time on this patient's care today; this time is exclusive of procedural time.
[2021-06-12] MEDS: QUETIAPINE 100 MG TABLET PO (20:03)
[2021-06-12] MEDS: HEPARIN 5,000 UNIT/ML VIAL 5000 UNIT SUBCUT (20:41)
[2021-06-12] MEDS: NITROGLYCERIN 0.4 MG SL TAB SL (20:42)
[2021-06-12 21:23] LABS: Cholesterol 165 mg/dL (140-199); HDL Cholesterol 62 mg/dL (40-60); LDL Cholesterol Calculated 68 mg/dL (<100); Triglycerides 176 mg/dL (35-150)
[2021-06-12 21:24] LABS: Alanine Aminotransferase 154 IU/L (<35); Albumin 3.6 g/dL (3.5-5.0); Albumin Globulin Ratio 1.4 (1.0-2.8); Alkaline Phosphatase 84 U/L (38-126); Aspartate Aminotransferase 199 IU/L (14-36); BUN Creatinine Ratio 15.5 (6-22); Bilirubin Total 0.1 mg/dL (0.2-1.3); Blood Urea Nitrogen 9 mg/dL (7-17); Calcium 8.6 mg/dL (8.4-10.2); Carbon Dioxide 28 mmol/L (22-32); Chloride 104 mmol/L (98-107); Creatine Kinase 40 U/L (30-135); Estimated Glomerular Filt Rate > 60.0 mL/min (>60); Globulin 2.6 g/dL (1.7-4.1); Glucose 91 mg/dL (70-100); HEMOLYSIS < 15 (0-50); Sodium 137 mmol/L (137-145); Total Protein 6.2 g/dL (6.3-8.2)
[2021-06-12 21:25] LABS: Add Manual Diff / Slide Review NO; Basophils Absolute Auto 0 /uL (0-100); Basophils Percent Auto 1.4 % (0-2); Eosinophils Absolute Auto 300 /uL (0-450); Eosinophils Percent Auto 8.8 % (2-4); Hematocrit 31.8 % (36-46); Hemoglobin 10.2 g/dL (12.0-16.0); Lymphocytes Absolute Auto 1000 /uL (1100-4500); Lymphocytes Percent Auto 32.5 % (25-40); Mean Corpuscular HGB Conc 32.1 % (30-36); Mean Corpuscular Hemoglobin 27.4 PG (26-34); Mean Corpuscular Volume 85.2 fL (80-100); Monocytes Absolute Auto 200 /uL (0-900); Monocytes Percent Auto 7.8 % (3-14); Neutrophils Absolute Auto 1500 /uL (1500-7000); Neutrophils Percent Auto 49.5 % (50-75); Platelet Count 253 X10^3/uL (150-400); Red Blood Cell Count 3.74 X10^6/uL (4.0-5.2); Red Cell Distribution Width 20.5 % (11.6-14.8); White Blood Cell Count 3.1 X10^3/uL (4.5-11.0)
[2021-06-12 21:35] LABS: Troponin I < 0.012 ng/mL (0.01-0.034)
[2021-06-12 21:54] LABS: Platelet Estimate Adequate on smear
[2021-06-12 21:55] LABS: Anisocytosis 1+; Hypochromasia 1+
[2021-06-13 04:30] VITALS: BP 150/75; PULSE 70; RESP 18; TEMP 36.6; O2SAT 100
[2021-06-13 05:24] LABS: Troponin I < 0.012 ng/mL (0.01-0.034)
[2021-06-13] MEDS: PANTOPRAZOLE DR 20 MG TABLET PO (06:45)
[2021-06-13 07:50] VITALS: BP 140/92; PULSE 79; RESP 18; TEMP 35.9; O2SAT 100
[2021-06-13] MEDS: ENOXAPARIN 40 MG/0.4 ML SYRINGE SUBCUT (09:34)
[2021-06-13] MEDS: CALCIUM CARBONATE 500 MG TAB PO ×2 (09:34→21:30)
[2021-06-13] MEDS: FOLIC ACID 1 MG TABLET PO (09:34)
[2021-06-13] MEDS: FLUoxetine 20 MG CAPSULE 40 MG PO (09:34)
[2021-06-13] MEDS: MULTIVITAMIN 1 TABLET 1 TAB PO (09:35)
[2021-06-13] MEDS: ASPIRIN EC 81 MG TABLET PO (09:35)
[2021-06-13] MEDS: THIAMINE 100 MG TABLET PO (09:35)
[2021-06-13] MEDS: NAPROXEN 250 MG TABLET 500 MG PO ×2 (09:35→16:29)
[2021-06-13] MEDS: LIDOCAINE PATCH 1 EACH ADH..PATCH TOP (09:35)
[2021-06-13 11:15] VITALS: BP 121/71; PULSE 91; RESP 18; TEMP 36.3; O2SAT 99
--- NOTE | 2021-06-13 12:20 | PT.IIE ---
Current Diagnoses Alcohol dependence with withdrawal, unspecified (06/09/21) Medical History (Last Reviewed 06/09/21 @ 06:12 by Ev Sanders DO) Alcohol abuse Anxiety Depression Physical Therapy Inpatient Evaluation/Re-Eval M1 PT/OT-IP Prior Functional Status Start: 06/13/21 12:53 Freq: NEEDED Status: Active Protocol: Document 06/13/21 12:20 AB (Rec: 06/13/21 13:09 AB [id number]) Medical Review Prior Functional Status Medical History Reviewed Yes Communication able to make needs known Mobility and Gait pt stated that she is independent with all mobilties and ambulation without AD Social History Household Members none Living Arrangements Apartment/Condo Number of Floors (Floors) Two Floors Number of Stairs To Enter/Railing? 20 steps R rail to enter the apartment 8 steps without rails to get to 2nd level bedroom Home Environment Standard Height Toilet,Walk in Shower Additional Social History Comment pt has an adjustable bed M2 PT-IP Current Condition Start: 06/13/21 12:53 Freq: NEEDED Status: Active Protocol: Document 06/13/21 12:20 AB (Rec: 06/13/21 13:09 AB [email or web address]) Physical Therapy Current Condition Current Condition Evaluation Date 06/13/21 Treatment Diagnosis alcohol withdrawal/seizure; difficulty in walking Onset Date 06/09/21 Precautions Other Precautions falls; seizure precautions M3 PT-IP Subjective Start: 06/13/21 12:53 Freq: NEEDED Status: Active Protocol: Document 06/13/21 12:20 AB (Rec: 06/13/21 13:09 AB [email or web address]) Subjective Physical Therapy Visit Type Type Initial Evaluation Visit Start Time 12:20 Visit Stop Time 12:45 Total Visit Minutes 25 Number of SECTION GANG WORKER Visits 0 Physical Therapy Visit Comments Patient Comments agreeable to do PT Therapy Pain Assessment Pain When Pain Assessed At Rest Location Left Upper Chest Scale Used pain scale not stated Pain Management Techniques Distraction,Modification of Treatment,Re-positioning, Timing of Activity with Medications M4 PT-IP Mobility and Gait Start: 06/13/21 12:53 Freq: NEEDED Status: Active Protocol: Document 06/13/21 12:20 AB (Rec: 06/13/21 13:09 AB [email or web address]) PT-Bed Mobility Assessment Supine to Sit Supine to Sit Standby Assistance Sit to Supine Sit to Supine Standby Assistance PT-Transfer Assessment Sit to and From Stand Sit to and from Stand Minimal Assistance,1 Person Assistance Equipment Transfer Assistive Device Gait Belt,Front Wheeled Walker Orthotic/Prosthetic Devices or Brace: No Comments Mobility Comments pt c/o L upper chest pain more on pectoral muscle are and increase with shoulder movement. pt stated that she might have strained the muscle and does not recall what happened if she had a seizure or not. pt is agreeable to do PT. completed supine to sit SBA with HOB elevated. pt has an adjustable bed at home. pt was able to sit on EOB SBA. completed sit to stand min A and ambulated in room using FWW min A ~ 25 ft and cued for techniques and upright posture. presents with increase forward trunk flexion , decrease LE elevation and step length and has shakiness/ tremulous during standing and ambualtion. pt requested to go back to bed and c/o increase L sided upper chest pain. completed sit to supine sBA. positioned pt on chair. call light and table placed within reach. O2 sat: 97% [place]: 100-108 bpm. encouraged pt to ambulate with nurses when able to improve activity tolerance. pt agreed. Gait Assessment Gait Gait Assistance Required: Minimum Assistance Distance (Feet) 25 Able to Maintain Weight Bearing Status Yes During Gait Assistive Devices Assistive Device Gait Belt,Front Wheeled Walker Orthotic/Prosthetic Devices or Brace: No Gait Deviations General Gait Pattern Decreased Stride Length, Decreased Feet Clearance, Flexed Trunk,Step-to Gait Factors Limiting Gait Function Factors Limiting Gait Function Decreased Activity Tolerance, Decreased Strength,Limited Range of Motion,Pain,Poor Balance,Poor Safety Awareness Comments Gait Comments pls refer to mobility section for details PT-Balance Assessment Sitting Balance and Reactions Static Sitting Balance Ability Good Dynamic Sitting Balance Ability Good Standing Balance and Reactions Static Standing Balance Ability Fair Dynamic Standing Balance Ability Fair M5 PT-IP Objective Assessments Start: 06/13/21 12:53 Freq: NEEDED Status: Active Protocol: Document 06/13/21 12:20 AB (Rec: 06/13/21 13:09 AB [id number]) Orientation Orientation/Cognition Level of Alertness Alert Orientation Name,Age,Birthday,Month,Place, Situation Language Function Ability No Deficits Noted Safety Awareness Decreased Safety Awareness Memory Description Short Term Impaired Gross Range of Motion Lower Extremity ROM Assessment Within Functional Limits Strength Lower Extremity Strength Hip 4-/5 Knee 4-/5 Sensation Assessment Sensation Gross Sensation WNL Muscle Tone Muscle Tone WNL Yes M6 PT-IP Treatment Start: 06/13/21 12:53 Freq: NEEDED Status: Active Protocol: Document 06/13/21 12:20 AB (Rec: 06/13/21 13:09 AB [email or web address]) Physical Therapy Treatment Education Education Provided Safety M7 PT-IP Assessment and Plan Start: 06/13/21 12:53 Freq: NEEDED Status: Active Protocol: Document 06/13/21 12:20 AB (Rec: 06/13/21 13:09 AB [email or web address]) PT Summary Assessment and Plan Potential Rehabilitation Potential Good Status of Condition at Evaluation Evolving Summary Impairments Pain,ROM,Strength,Balance, Coordination,Sensation,Tone, Cognition,Bed Mobility, Transfers,Gait,Activity Tolerance Assessment Summary pt requiring min A with transfers and ambulation using fWW but unable to tolerate much activity with c/o increase L upper chest pain and fatigue after 25 ft ambulation. pt will require SNF rehab to improve overall strength and functional independence. pt lives alone and has 20 steps to be able to enter her apartment. will continue to assess progress. Goals Bed Mobility Goal Independent Transfer Goal Standby Assistance,Front Wheeled Walker Gait Goal Standby Assistance,Front Wheel Walker Gait Distance 200 Other Goals improve transfers to mod I and ambulation without AD/least restrictive AD SBA 200 ft up/down 8 steps without rails SBA up/down 20 steps R rail SBA Days to Meet Goals 10 Frequency of Treatment Frequency Of Treatment Once a Day Treatment Plan Physical Therapy Treatment Plan Bed Mobility Training,Transfer Training,Gait Training, Therapeutic Exercise,Balance Retraining,Post Op Education, Discharge Planning,Hot or Cold Pack,Neuromuscular Re-ed, Coordination Retraining,Manual Therapy Other Recommendations and Next Treatment ambulation Focus Precautions Other Precautions falls, seizure precaution Recommendations To Nursing Amount of Assist Needed 1 Person Assist Discharge Recommendations PT Discharge Recommendations SNF Rehab Equipment Needed for Home Before FWW if pt goes home and not Discharge safe without AD Transportation Needs at Discharge Wheelchair/Cabulance
--- NOTE | 2021-06-13 15:33 | CM.DPC ---
Addendum entered by Layne Ding R.N. 06/13/21 15:49: Patient may benefit with home health for therapies. She does not have a provider as of yet, but she may qualify for the [place] [facility], through [facility], for those that are not yet established with providers. Original Note: DCP Cont: Discussed patient during team rounds. Patient could possibly discharge today. Nurse indicated that patient did have some a-fib last night. Hospitalist was going to review tele. P: DCP to continue to follow. Have resources for patient regarding local psychiatrists that accept her insurance. She is to be following up with outpatient treatment at [facility] for rehab. Layne Ding RN/Photographers' Model
[2021-06-13 15:55] VITALS: BP 142/60; PULSE 75; RESP 19; TEMP 36.4; O2SAT 99
--- NOTE | 2021-06-13 16:21 | PM.PN.1 ---
Subjective Subjective Date Patient Seen: 06/13/21 Time Patient Seen: 13:00 Interval history: Today she says she feels anxious and shaky, though improving. Fatigue and weakness in legs predominant symptoms today. PT consulted. Exam Vital Signs (past 8 hours): - 06/13/21 11:15 Temperature 97.4 F L Pulse Rate 91 H Respiratory Rate 18 Blood Pressure 121/71 Pulse Oximetry 99 Oxygen Delivery Method Room Air Oxygen Flow Rate 0 Narrative Exam Narrative: General:? Awake, anxious appearing, though no acute distress. HEENT: Pupils equal and reactive, nontraumatic Neck:? No lymphadenopathy Lungs:? Clear to auscultation Heart:?RRR, reproducible pain on exam. Abdomen:? Soft and nontender, no HSM Extremities:? No edema Neurological:? Affect anxious, speech normal, well oriented. minimal tremulousness. Observed with walker and patient was unsteady and slow. Objective Labs Result Diagrams: 06/12/21 21:03 06/12/21 21:03 Labs: Laboratory Results - last 24 hr 06/12/21 06/12/21 06/12/21 21:03 21:03 21:03 WBC 3.1 L RBC 3.74 L Hgb 10.2 L Hct 31.8 L MCV 85.2 MCH 27.4 MCHC 32.1 RDW 20.5 H Plt Count 253 Neut % (Auto) 49.5 L Lymph % (Auto) 32.5 [place] % (Auto) 7.8 Eos % (Auto) 8.8 H Baso % (Auto) 1.4 Neut # (Auto) 1500 Lymph # (Auto) 1000 L [place] # (Auto) 200 Eos # (Auto) 300 Baso # (Auto) 0 Platelet Estimate Adequate on smear RBC Morphology See below Hypochromasia 1+ H Anisocytosis 1+ H Sodium 137 Potassium 4.0 Chloride 104 Carbon Dioxide 28 BUN 9 Creatinine 0.58 Estimated GFR > 60.0 BUN/Creatinine Ratio 15.5 Glucose 91 Calcium 8.6 Total Bilirubin 0.1 L AST 199 H ALT 154 H Alkaline Phosphatase 84 Total Creatine Kinase 40 CK-MB (CK-2) TNP CK-MB (CK-2) Rel Index TNP Troponin I < 0.012 Total Protein 6.2 L Albumin 3.6 Globulin 2.6 Albumin/Globulin Ratio 1.4 Triglycerides 176 H Cholesterol 165 LDL Cholesterol, Calc 68 HDL Cholesterol 62 H 06/13/21 04:50 WBC RBC Hgb Hct MCV MCH MCHC RDW Plt Count Neut % (Auto) Lymph % (Auto) [place] % (Auto) Eos % (Auto) Baso % (Auto) Neut # (Auto) Lymph # (Auto) [place] # (Auto) Eos # (Auto) Baso # (Auto) Platelet Estimate RBC Morphology Hypochromasia Anisocytosis Sodium Potassium Chloride Carbon Dioxide BUN Creatinine Estimated GFR BUN/Creatinine Ratio Glucose Calcium Total Bilirubin AST ALT Alkaline Phosphatase Total Creatine Kinase CK-MB (CK-2) CK-MB (CK-2) Rel Index Troponin I < 0.012 Total Protein Albumin Globulin Albumin/Globulin Ratio Triglycerides Cholesterol LDL Cholesterol, Calc HDL Cholesterol PFSH Medical History (Updated 06/09/21 @ 08:12 by Dante Aden DO) Alcohol abuse Anxiety Depression Surgical History (Updated 06/11/21 @ 06:59 by Miryam Avendaño RN) Hx of breast augmentation Family History Mother Hypertension Social History household members: none lives independently: Yes Smoking Status: Never smoker Assessment & Plan Assessment & Plan narrative: ?Acute alcohol withdrawal -ethyl alcohol 208 in ED but yet in withdrawal -follow CIWA protocol using lorazepam -daily thiamin and folate -D5 NS at 100 cc/hour -Zofran/Reglan as needed nausea and vomiting -diet as tolerated -continue home medications 2. muscloskeletal chest pain. -reproducible with palpation -EKG showed no acute ischemia, troponin negative -started protonix for possible reflux -CTA negative for acute cause -ordered tylenol, tramadol, naproxen, lido patch with some improvement. 3. acute cystitis -started IV ceftriaxone for group B strep, total 3 day course. Code: Full dispo: anticipate discharge home with improvement but initial PT eval today recommended SNF rehab. Time Spent With Patient Critical Care time: I spent a total of [] minutes of critical care time on this patient's care today; this time is exclusive of procedural time.
[2021-06-13] MEDS: LORazepam 1 MG TABLET PO (17:16)
[2021-06-13] MEDS: MAGNESIUM HYDROXIDE 30 ML UDC PO (17:16)
[2021-06-13 20:22] VITALS: O2SAT 98
[2021-06-13 20:40] VITALS: BP 156/86; PULSE 83; RESP 21; TEMP 36.3; O2SAT 98
[2021-06-13] MEDS: QUETIAPINE 100 MG TABLET PO (21:30)
[2021-06-13] MEDS: ACETAMINOPHEN 325 MG TABLET 650 MG PO (21:31)
[2021-06-14 02:00] VITALS: BP 115/76; PULSE 73; RESP 16; TEMP 37; O2SAT 97
[2021-06-14] MEDS: ACETAMINOPHEN 325 MG TABLET 650 MG PO (02:15)
[2021-06-14 06:34] VITALS: BP 156/102; PULSE 79; RESP 14; TEMP 36.2; O2SAT 99
[2021-06-14 06:45] VITALS: BP 139/86
[2021-06-14] MEDS: PANTOPRAZOLE DR 20 MG TABLET PO (06:45)
[2021-06-14 08:00] VITALS: BP 144/80; PULSE 80; RESP 16; TEMP 36.3; O2SAT 98
[2021-06-14] MEDS: NAPROXEN 250 MG TABLET 500 MG PO (09:15)
[2021-06-14] MEDS: ENOXAPARIN 40 MG/0.4 ML SYRINGE SUBCUT (09:15)
[2021-06-14] MEDS: MULTIVITAMIN 1 TABLET 1 TAB PO (09:16)
[2021-06-14] MEDS: THIAMINE 100 MG TABLET PO (09:16)
[2021-06-14] MEDS: CALCIUM CARBONATE 500 MG TAB PO (09:16)
[2021-06-14] MEDS: ASPIRIN EC 81 MG TABLET PO (09:16)
[2021-06-14] MEDS: FOLIC ACID 1 MG TABLET PO (09:16)
[2021-06-14] MEDS: LIDOCAINE PATCH 1 EACH ADH..PATCH TOP (09:16)
[2021-06-14] MEDS: FLUoxetine 20 MG CAPSULE 40 MG PO (09:16)
[2021-06-14] MEDS: SODIUM CHLORIDE 0.9% FLUSH 10 ML IV (09:17)
--- NOTE | 2021-06-14 09:25 | PM.DS.1 ---
History of Present Illness History of Present Illness Date Patient Seen: 06/14/21 Time Patient Seen: 09:26 Chief complaint: withdrawal/ seizure Narrative: Per Dr. Garrido: Patient is a 55-year-old female with chronic alcohol dependency, very recently came home from acute rehab, who presented to the emergency department with symptoms of alcohol withdrawal.? Patient states she did resume drinking after released from rehab but try to cut back over the past week.? Last drink was yesterday.? She typically consumes 2/5 per day.? She has history of DTs.? She presented to ED with acute withdrawal, recurrent vomiting, shaky and anxious.? Initial CIWA of 22.? She got a couple doses of lorazepam followed by phenobarbital. Discharge Providers Provider Date of admission: 06/09/21 08:44 Discharge Date: 06/14/21 Consults: 06/13/21 11:12 Consult to Physical Therapy Evaluate & Treat Comment: Physician Instructions: Evaluate and Treat Discharge provider: Fazal Toribio DO Summary Hospital Course Discharge Diagnosis: 1. Acute alcohol withdrawal, resolved 2. muscloskeletal chest pain. 3. acute cystitis secondary to Group B strep 4. Anxiety and depression, chronic Hospital Course: This was a 55-year-old female who was admitted for alcohol withdrawal. She was placed on CIWA protocol and manage with symptom control with benzodiazepines. She had a workup for some chest pain which was unremarkable and ultimately deemed to be due to musculoskeletal causes. She was also found to have acute cystitis secondary to group B strep, and the patient completed a 3 day course of ceftriaxone over the course of her stay. On the day prior to discharge she remained quite wobbly and was actually recommended for acute rehab. However she continued to improve quite quickly and the following day she was ambulatory, did not want to see physical therapy, and wished to be discharged home. She was not tremulous and showed no evidence of withdrawal at the time of discharge. Her home Seroquel was prescribed to give her time to follow-up with a psychiatrist or provider here. Time Spent with Patient Time spent: Greater than 30 minutes Exam Vital Signs (past 8 hours): - 06/14/21 02:00 06/14/21 06:34 06/14/21 06:45 Temperature 98.6 F 97.1 F L Pulse Rate 73 79 Respiratory Rate 16 14 Blood Pressure 115/76 156/102 H 139/86 Pulse Oximetry 97 99 Oxygen Delivery Method Room Air Oxygen Flow Rate 0 Narrative Exam Narrative: General:? Awake, non-anxious appearing, though no acute distress. HEENT: Pupils equal and reactive, nontraumatic Neck:? No lymphadenopathy Lungs:? Clear to auscultation Heart:?RRR, reproducible pain on exam. Abdomen:? Soft and nontender, no HSM Extremities:? No edema Neurological:? calm today, speech normal, well oriented. no tremulousness. improved mobility today. Objective Labs Result Diagrams: 06/12/21 21:03 06/12/21 21:03 [facility] Medical History (Updated 06/09/21 @ 08:12 by Dante Adne DO) Alcohol abuse Anxiety Depression Surgical History (Updated 06/11/21 @ 06:59 by Miryam Avendaño RN) Hx of breast augmentation Family History Mother Hypertension Social History household members: none lives independently: Yes Smoking Status: Never smoker Discharge Plan Discharge Plan Patient Disposition: Home Provider Discharge Comment: You were admitted to the hospital with alcohol withdrawal. Improved with symptom guided treatments. Discharge orders & Medications Prescriptions: Continued fluoxetine 40 mg Capsule 40 mg PO QAM RF: 0 trazodone 50 mg tablet 50 mg PO BEDTIME RF: 0 quetiapine [Seroquel] 100 mg Tablet 100 mg PO BEDTIME 30 Days Qty: 30 RF: 0 Diet/Activity/Treatments Diet: Diet as Tolerated Activity: As tolerated Visit Report/Discharge Packet Instructions: Getting to the Heart of a Healthy Diet: Alcohol, DI for Alcohol Use Disorder
--- NOTE | 2021-06-14 12:40 | PT-IP ANOTE ---
Attempted to see pt at 12:39 pm, pt refused PT stating she has no further needs and is about to d/c. Stated she feels much more stable and back to normal.
--- NOTE | 2021-06-14 13:23 | CM.DPC ---
DCP Cont: Met with patient, for she will be discharging home today. Introduced self and role. Nurse was going to call her a cab. Patient is feeling so much better. Gave her a list of psychiatrists that take her insurance, She was appreciative. She lives alone here in [place], her parents live in [place]. She stated, she felt like she had been in vacation mode, which is how she had started drinking again. She is employed at [employer] here in [place] which is what brought her here from [place]. P: Patient is to discharge home today. She has the list of providers given to her. Layne Ding RN/Coordinator Of Online Programs
--- NOTE | 2021-06-14 14:29 | PC.NURSE ---
Pt is A&OX3. VSS, afebrile on RA. She reports ambulating 5 or 6 times up in the hallway during the night and feeling steady, not needing FWW, not feeling dizzy and weak. at bedside this a.m. evaluating patient and clears her for discharge home. She states her L chest soreness is much improved and overall in general feeling much better. Good po intake this a.m. She declines needing PT to work with her this a.m. as she appears and feels back to her baseline. She verbalizes understanding of discharge instructions and home medications. CM at bedside discussing outpatient plan with patient, she is aggreeable and reports she wants to remain sober. Shortly after lunch per her request [facility]'s taxi cab notified for transportation to [facility] for prescription and then home. RN escorted her via w/ch with all of her [facility]s [facility] at approximately 1330.
== END 2021-06-14 13:30 | disposition home or self-care (01) | DRG 897 ==
LOC: ED 08:42 → AC 08:45
PROVIDERS: Emergency Medicine; Internal Medicine; Nurse Practitioner Family; Admitting Provider Internal Medicine; Emergency Provider Emergency Medicine; Referring Provider Emergency Medicine; Visit Provider Internal Medicine
DX: F10.239 Alcohol dependence with withdrawal, unspecified (principal); N30.00 Acute cystitis without hematuria; Y90.7 Blood alcohol level of 200-239 mg/100 ml; B95.1 Streptococcus, group B, as the cause of diseases classified elsewhere; R07.89 Other chest pain; F41.9 Anxiety disorder, unspecified; F32.A Depression, unspecified; Z20.822 Contact with and (suspected) exposure to COVID-19
CPT/HCPCS: 36415; 71045; 71275; 74018; 80048; 80053; 80061; 80076; 80305; 80320; 81001; 82550; 83690; 83735; 84484; 85025; 85027; 87077; 87086; 87147; 87635; 93005; 94760; 94762; 96361; 96374; 96375; 97162; 99284; C9803; J0696; J1644; J1650; J2060; J2405; J2560; J3475; Q9967

== ENCOUNTER 2021-07-23 16:01 | Emergency (ER) | payer OTHER, SELFPAY ==
[2021-06-09 19:31] VITALS: BMI 26.6
[2021-07-23] VITALS (17 sets, daily range): BP systolic 119–140; BP diastolic 67–91; PULSE 79–95; RESP 15–16; TEMP 36.4; O2SAT 94–100
[2021-07-23 16:28] LABS: Add Manual Diff / Slide Review NO; Basophils Absolute Auto 0 /uL (0-100); Basophils Percent Auto 0.8 % (0-2); Eosinophils Absolute Auto 0 /uL (0-450); Eosinophils Percent Auto 0.3 % (2-4); Hematocrit 39.1 % (36-46); Hemoglobin 13.1 g/dL (12.0-16.0); Lymphocytes Absolute Auto 1200 /uL (1100-4500); Lymphocytes Percent Auto 29.2 % (25-40); Mean Corpuscular HGB Conc 33.6 % (30-36); Mean Corpuscular Hemoglobin 28.3 PG (26-34); Mean Corpuscular Volume 84.2 fL (80-100); Monocytes Absolute Auto 300 /uL (0-900); Monocytes Percent Auto 5.9 % (3-14); Neutrophils Absolute Auto 2700 /uL (1500-7000); Neutrophils Percent Auto 63.8 % (50-75); Platelet Count 371 X10^3/uL (150-400); Red Blood Cell Count 4.65 X10^6/uL (4.0-5.2); Red Cell Distribution Width 19.9 % (11.6-14.8); White Blood Cell Count 4.3 X10^3/uL (4.5-11.0)
[2021-07-23 16:42] LABS: Alanine Aminotransferase 334 IU/L (<35); Albumin 5.2 g/dL (3.5-5.0); Albumin Globulin Ratio 1.7 (1.0-2.8); Alkaline Phosphatase 147 U/L (38-126); Aspartate Aminotransferase 491 IU/L (14-36); BUN Creatinine Ratio 16.9 (6-22); Bilirubin Total 0.6 mg/dL (0.2-1.3); Blood Urea Nitrogen 13 mg/dL (7-17); Calcium 10.1 mg/dL (8.4-10.2); Carbon Dioxide 22 mmol/L (22-32); Chloride 88 mmol/L (98-107); Estimated Glomerular Filt Rate > 60.0 mL/min (>60); Globulin 3.1 g/dL (1.7-4.1); Glucose 92 mg/dL (70-100); HEMOLYSIS < 15 (0-50); Potassium 4.3 mmol/L (3.4-5.1); Sodium 133 mmol/L (137-145); Total Protein 8.3 g/dL (6.3-8.2)
[2021-07-23 16:58] LABS: Ethanol (ETOH) 387 mg/dL
[2021-07-23] MEDS: ONDANSETRON 4 MG ODT SL (17:54)
--- NOTE | 2021-07-23 18:06 | CM.SWNOTE ---
PRESTIDIGITATOR Assessment PRESTIDIGITATOR - Principal Electrical Engineer Assessment PRESTIDIGITATOR/Principal Electrical Engineer Assessment Time Spent with Patient Start date 07/23/21 Visit Start Time 16:20 End date 07/23/21 Visit End Time 17:15 Total time Care Management spent on 55 patient visit-in minutes Substance Abuse Screening Include Onset, Duration, Intensity Presenting Problem Patient presents to the ED intoxicated on ETOH reporting that she wants to . Precipitating Event(s) Patient endorses that she has been struggling with ETOH use and depression for the last 5 years. Patient states she does not have a or any children and the only thing keeping her from killing herself is because her parents are still alive. Patient Strengths Patient called 911 to seek medical attention Current Behavioral Health Provider(s) Patient has previously Include Facility, Provider, Ph. # reported that she has been a patient of Psychiatrist Dr. Anay Rivas in [place], [place] ( Ph. # [phone]). It is unknown if patient continues to receive care from this psychiatrist. Patient has hx of prescription for Seraqual and Trazadone Family Hx of Behavioral Abuse None reported Rehab Facilities? ((Date(s), Location(s) Patient has historically ) endorsed going to treatment in [facility]. Patient has historically endorsed that she has been to detox several times with unsuccessful results. History of Withdrawal? Seizures? Shakes, vomiting, delusions and hx of seizures with the last seizure aprox. 3 years ago. Longest Period of Sobriety 20 years, 15 years ago. Psychosocial information & Support Patient is 55 y/o female who Systems resides in [place]. Patient has previously endorsed that her mother, father, brother and sister reside in [place], [place] and they due not know about her ETOH use. Patient declines any visitors or informing them of her presentation at the ED. School/Work Employed Legal Concerns Legal Matters - Outstanding Issues Unknown, none reported Mental Status Orientation (Person/Place/Time) A/O to self and person. Patient is not A/O to time and location. Stated Mood I want to Affect (Congruent with Mood?) Labile, congruent with mood. Thought Content - Specify/Describe None reported Obsessions, Delusions, Hallucinations Thought Processes (Uioslgz-Epkizryx-Pxib Disorganized, perseveration Vkwrwgch-Ypkbbtvu-Ahyxhjejxy- Pjjytmnovtzswo-Bnuerst-Evtgjumfdlow- Thought Blocking) Speech (Botgyz-Yzlt-Wrqifbp-Rapid-Soft- slurred Loud-Pressured) Motor (Wnfvcn-Lsrgvjuuy-Hvzd-Other) Excessive. Patient flails legs and arms and has tried to elope the ED 4 times thus far. Eventually patient is redirected to rest in hospital bed. Insight (Mynp-Getp-Suah/Limited) Poor/limited Judgement (Eqsd-Mjgj-Ewht/Limited) Poor/limited Impulse Control (Adequate-Impaired) Impaired Memory (Vceztodgx-Ffzbsn-Gohryj, Impaired, not formally Impaired-Intact) assessed Concentration (Intact-Impaired) impaired Attention (Intact-Impaired) impaired Behavior (Appropriate-Inappropriate) Inappropriate at times due to attempting to elope, but patient can be redirected and currently resting and appropriate. Patient apologizes often. Risk Assessment Suicidal Ideation (Plan) Yes Comment HI not reported. Patient endorses several times her desire to and kill herself. Patient states it would be easier to be and she does not want to be here anymore. When asked about a plan, patient endorses she has a gun at her house. Patient states the gun is a glock. Patient endorses she thinks about using the gun often. Patient endorses she lives alone and does not have supports. Intervention Intervention PRESTIDIGITATOR receives consult and observes patient and enters room to meet with her. Patient endorses that today she drank 3 fifths of vodka and her last drink was approximately 1-2 hours ago. Patient endorses that this is the most she has drank. Patient endorses several times I want to ,I am only alive because my parents are still alive, I'm the worst ever, and please let me . When asked further, patient endorses that she has a gun at her home and she thinks about killing her self often. PRESTIDIGITATOR discusses going to inpatient for dual diagnosis to address SI and ETOH use and patient responds with I want to . It is the opinion of this PRESTIDIGITATOR that patient is not a good elmer voluntary inpatient candidate. It is the opinion of this PRESTIDIGITATOR that patient is in need of [facility] and patient is a Omar's Law candidate. Patient is need of stabilization, safety, and medication management. It is the opinion of this PRESTIDIGITATOR that patient is not safe to discharge to home. PRESTIDIGITATOR reviews the above with ED provider Dr. Sanabria and charge master specialistLUCAS Fatima who both indicate agreement and understanding. Plan RA Plan ED staff to dispatch DCR when patient is medically clear, DCR to assess the need for ONEY[facility] Omar's law bed for patient. CHANDLER Sung
--- NOTE | 2021-07-23 18:29 | CM.SWNOTE ---
FINAL FINISHER Note Patient endorses that she has not eaten or drank water for at least 6 days and she has only consumed alcohol. Patient endorses she has not been able to urinate. It is the opinion of this FINAL FINISHER that patient is not able to care for herself and is gravely disabled at this time. Niharika Fong MSW
[2021-07-23] MEDS: LORazepam 2 MG/ML INJ 1 MG IV (19:53)
--- NOTE | 2021-07-23 20:20 | PC.NURSE ---
Patient insisted to call her father. Pt is updating him on her status and states she is seeking inpatient at a local detox facility. Pt also asked her father to go to her house and get rid of all of the vodka at her place. Her father sounds supportive of her.
[2021-07-23 20:35] LABS: COVID19 -Nasal RAPID Negative (Negative)
[2021-07-23 21:01] LABS: UR Morphine/Opiate cutoff 300 Negative (Negative); Ur Creatinine Normal (Normal); Ur Specific Gravity Normal (Normal); Urine Amphetamines Negative (Negative); Urine Barbiturates Negative (Negative); Urine Cocaine Negative (Negative); Urine MDMA Negative (Negative); Urine Methamphetamines Negative (Negative); Urine Phencyclidine Negative (Negative); Urine Tetrahydrocannabinol Negative (Negative); Urine pH Normal (Normal)
[2021-07-23 21:02] LABS: Urine Benzodiazepines Positive (Negative); Urine Methadone Negative (Negative); Urine Oxycodone Negative (Negative); Urine Tricyclic Antidepressant Negative (Negative)
[2021-07-24] VITALS (24 sets, daily range): BP systolic 118–158; BP diastolic 64–94; PULSE 88–124; RESP 15–22; O2SAT 93–98
--- NOTE | 2021-07-24 00:38 | ED.ALCOHOL ---
HPI - Alcohol General Chief Complaint: Toxicology Problem Stated Complaint: highly intoxicated, suicidal ideation Time Seen by Provider: 07/23/21 16:06 Source: patient and EMS Mode of arrival: EMS Limitations: no limitations History of Present Illness HPI narrative: 55-year-old female of depression and alcohol abuse presents by EMS for evaluation of heavy alcohol intoxication and suicidal ideation. She is known well to the facility and social Work for her extensive alcohol abuse. She states that she has been drinking upwards of a 0.5 gal per day and states that over the past day or 2, it is hard for her to tell, she has been drinking in an effort to try to kill herself. She states that she does not care anymore and she wants to drink until she dies. She has gone through withdrawals in the past, most recently a few months ago. She denies any fever chills nor nausea or vomiting. She states her life is terrible and she no longer wants to live. Related Data Home Medications Medication Instructions Recorded Confirmed fluoxetine 40 mg capsule 40 mg PO QAM 03/28/21 06/09/21 trazodone 50 mg tablet 50 mg PO BEDTIME 06/09/21 06/09/21 Previous Rx's Medication Instructions Recorded quetiapine 100 mg tablet (Seroquel) 100 mg PO BEDTIME 30 Days #30 tab 06/14/21 Allergies Allergy/AdvReac Type Severity Reaction Status Date / Time No Known Drug Allergies Allergy Verified 07/23/21 16:22 Review of Systems Review of Systems Narrative: GENERAL: Denies chills, fatigue, malaise, fever, sweats. HEENT: Denies sinus pain, ear pain, sore throat, difficulty swallowing, dizziness. RESPIRATORY: Denies dyspnea, cough, wheezing, hemoptysis, sputum. CARDIOVASCULAR: Denies chest pain, palpitations, orthopnea, edema, GASTROINTESTINAL: Denies nausea, vomiting, abdominal pain, diarrhea, constipation, melena. : Denies dysuria, frequency, incontinence, hematuria, urinary retention. MUSCULOSKELETAL: denies weakness, joint pain, or bony pain SKIN: Denies rash, skin lesions, or other NEUROLOGIC: Denies weakness, headache, numbness, change in speech, confusion, seizures, incoordination. PSYCHIATRIC: See HPI 12 point review of systems is negative except for those stated above Patient History Medical History (Updated 06/09/21 @ 08:12 by Dante Aden DO) Alcohol abuse Anxiety Depression Surgical History (Updated 06/11/21 @ 06:59 by Miryam Avendaño RN) Hx of breast augmentation Family History Mother Hypertension Social History household members: none lives independently: Yes Smoking Status: Never smoker Smoking Status: Never smoker alcohol intake frequency: 3 or more drinks per day Alcohol type: hard liquor Substance Use Type: does not use Exam Narrative Exam Narrative: GENERAL: [55 year old patient appears stated age. Tearful, slurring words, smells of alcohol HEAD: Atraumatic. Normocephalic. EYES: Pupils equal round and reactive. Extraocular motions intact. No scleral icterus. No injection or drainage. ENT: Nose without bleeding, purulent drainage. Throat without erythema, tonsillar hypertrophy or exudate. Airway patent. NECK: Trachea midline. Non tender CARDIOVASCULAR: Regular rate and rhythm without murmurs, gallops, or rubs. RESPIRATORY: Clear to auscultation. Breath sounds equal bilaterally. No wheezes, rales, or rhonchi. GASTROINTESTINAL: Abdomen soft, non-tender, nondistended. EXTREMITIES: No edema or joint tenderness. BACK: Nontender without deformity or crepitance. No flank tenderness. NEURO: AOx3. SKIN: No rash or erythema of visible areas Initial Vital Signs Initial Vital Signs: Vital Signs Temperature 97.5 F L 07/23/21 16:00 Pulse Rate 85 07/23/21 16:00 Respiratory Rate 15 07/23/21 16:00 Blood Pressure 140/91 H 07/23/21 16:00 Pulse Oximetry 96 07/23/21 16:00 Course Orders Ordered: Discontinued Medications Thiamine HCl 200 mg/ Sodium (Chloride) 102 mls @ 408 mls/hr IV NOW ONE Stop: 07/24/21 00:39 Last Infusion: 07/24/21 01:19 Dose: 0 mls/hr Documented by: Admin: 07/24/21 00:53 Dose: 408 mls/hr Documented by: JULIANE Lorazepam (Lorazepam 2 Mg/Ml Inj) 1 mg IV NOW ONE Stop: 07/23/21 19:32 Last Admin: 07/23/21 19:53 Dose: 1 mg Documented by: ROMEL Ondansetron HCl (Ondansetron 4 Mg/2 Ml Inj) 4 mg IV NOW ONE Stop: 07/23/21 17:37 Last Admin: 07/23/21 18:13 Dose: Not Given Documented by: MANNY Ondansetron HCl (Ondansetron 4 Mg Odt) 4 mg SL NOW ONE Stop: 07/23/21 17:53 Last Admin: 07/23/21 17:54 Dose: 4 mg Documented by: MANNY Ondansetron HCl (Ondansetron 4 Mg/2 Ml Inj) 4 mg IV NOW ONE Stop: 07/24/21 04:25 Last Admin: 07/24/21 04:29 Dose: 4 mg Documented by: NITHYA Ondansetron HCl (Ondansetron 4 Mg/2 Ml Inj) 4 mg IV NOW ONE Stop: 07/24/21 06:30 Last Admin: 07/24/21 06:32 Dose: 4 mg Documented by: NITHYA Pantoprazole Sodium (Pantoprazole 40 Mg Vial) 40 mg IV NOW ONE Stop: 07/24/21 06:34 Last Admin: 07/24/21 06:48 Dose: 40 mg Documented by: NITHYA Phenobarbital (Phenobarbital 65 Mg/Ml Vial) 260 mg IV NOW ONE Stop: 07/24/21 00:38 Last Admin: 07/24/21 00:52 Dose: 260 mg Documented by: JULIANE Phenobarbital (Phenobarbital 65 Mg/Ml Vial) 130 mg IV NOW ONE Stop: 07/24/21 04:31 Last Admin: 07/24/21 04:34 Dose: 130 mg Documented by: NITHYA Phenobarbital (Phenobarbital 65 Mg/Ml Vial) 260 mg IV NOW ONE Stop: 07/24/21 06:34 Last Admin: 07/24/21 06:47 Dose: 260 mg Documented by: NITHYA Quetiapine Fumarate (Quetiapine 25 Mg Tablet) 50 mg PO NOW ONE Stop: 07/24/21 04:24 Consultations Consultation #1: Patient seems to clearly be a risk to herself, her drinking is to and excessive level. Consultation was placed with the FITTINGS TIGHTENER to (please see her note for details), she shares the opinion that the patient is appropriate for consideration of Omar's Law. Her note clearly states the patient is not a good elmer voluntary patient Consultation #2: DCR has been contacted. and working on placement at [facility]. Consultation #3: patient has been accepted at [facility] Additional Consultation(s): patient has been responding well to Phenobarb and is currently resting comfortably with a very low CIWA. Nausea and vomiting is well controlled. Vital Signs Vital signs: Vital Signs - 8 hr 07/24/21 00:00 07/24/21 00:30 07/24/21 00:33 Pulse Rate 92 H 100 H 104 H Blood Pressure 127/76 Pulse Oximetry 96 94 98 07/24/21 00:34 07/24/21 01:00 07/24/21 01:30 Pulse Rate 97 H 88 89 Blood Pressure 127/76 Pulse Oximetry 97 94 94 07/24/21 02:00 07/24/21 02:30 07/24/21 03:00 Pulse Rate 97 H 94 H 93 H Blood Pressure Pulse Oximetry 94 98 97 07/24/21 03:30 07/24/21 04:00 07/24/21 04:32 Pulse Rate 105 H 105 H 124 H Blood Pressure Pulse Oximetry 94 94 98 07/24/21 04:33 07/24/21 05:00 07/24/21 05:30 Pulse Rate 119 H 98 H 101 H Blood Pressure 157/84 H 157/83 H 147/70 H Pulse Oximetry 97 94 96 07/24/21 06:00 07/24/21 06:30 07/24/21 07:00 Pulse Rate 102 H 107 H 94 H Blood Pressure 136/75 118/94 H 148/70 H Pulse Oximetry 96 97 93 MDM - Alcohol Lab Data Result diagrams: 07/23/21 16:15 07/23/21 16:15 Labs: Lab Results 07/23/21 07/23/21 07/23/21 Range/Units 16:15 16:15 20:02 WBC 4.3 L (4.5-11.0) X10^3/uL RBC 4.65 (4.0-5.2) X10^6/uL Hgb 13.1 (12.0-16.0) g/dL Hct 39.1 (36-46) % MCV 84.2 (80-100) fL MCH 28.3 (26-34) PG MCHC 33.6 (30-36) % RDW 19.9 H (11.6-14.8) % Plt Count 371 (150-400) X10^3/uL Neut % (Auto) 63.8 (50-75) % Lymph % (Auto) 29.2 (25-40) % [place] % (Auto) 5.9 (3-14) % Eos % (Auto) 0.3 L (2-4) % Baso % (Auto) 0.8 (0-2) % Neut # (Auto) 2700 (8607-4529) /uL Lymph # (Auto) 1200 (8025-3026) /uL [place] # (Auto) 300 (0-900) /uL Eos # (Auto) 0 (0-450) /uL Baso # (Auto) 0 (0-100) /uL Sodium 133 L (137-145) mmol/L Potassium 4.3 (3.4-5.1) mmol/L Chloride 88 L (98-107) mmol/L Carbon Dioxide 22 (22-32) mmol/L BUN 13 (7-17) mg/dL Creatinine 0.77 (0.52-1.04) mg/dL Estimated GFR > 60.0 (>60) mL/min BUN/Creatinine Ratio 16.9 (6-22) Glucose 92 (70-100) mg/dL Calcium 10.1 (8.4-10.2) mg/dL Total Bilirubin 0.6 (0.2-1.3) mg/dL AST 491 H (14-36) IU/L ALT 334 H (<35) IU/L Alkaline Phosphatase 147 H (38-126) U/L Total Protein 8.3 H (6.3-8.2) g/dL Albumin 5.2 H (3.5-5.0) g/dL Globulin 3.1 (1.7-4.1) g/dL Albumin/Globulin Ratio 1.7 (1.0-2.8) U Opiates 300ng/mL cut (Negative) Ur Oxycodone Screen (Negative) Urine Methadone Screen (Negative) Ur Barbiturates Screen (Negative) U Tricyclic Antidepress (Negative) Ur Phencyclidine Scrn (Negative) Ur Amphetamines Screen (Negative) U Methamphetamines Scrn (Negative) Ur MDMA Scrn (Ecstasy) (Negative) U Benzodiazepines Scrn (Negative) Urine Cocaine Screen (Negative) U Marijuana (THC) Screen (Negative) Ethyl Alcohol 387 H ( - 10) mg/dL SARS-CoV-2 (PCR) Negative (Negative) 07/23/21 Range/Units 20:52 WBC (4.5-11.0) X10^3/uL RBC (4.0-5.2) X10^6/uL Hgb (12.0-16.0) g/dL Hct (36-46) % MCV (80-100) fL MCH (26-34) PG MCHC (30-36) % RDW (11.6-14.8) % Plt Count (150-400) X10^3/uL Neut % (Auto) (50-75) % Lymph % (Auto) (25-40) % [place] % (Auto) (3-14) % Eos % (Auto) (2-4) % Baso % (Auto) (0-2) % Neut # (Auto) (8806-8423) /uL Lymph # (Auto) (0606-6494) /uL [place] # (Auto) (0-900) /uL Eos # (Auto) (0-450) /uL Baso # (Auto) (0-100) /uL Sodium (137-145) mmol/L Potassium (3.4-5.1) mmol/L Chloride (98-107) mmol/L Carbon Dioxide (22-32) mmol/L BUN (7-17) mg/dL Creatinine (0.52-1.04) mg/dL Estimated GFR (>60) mL/min BUN/Creatinine Ratio (6-22) Glucose (70-100) mg/dL Calcium (8.4-10.2) mg/dL Total Bilirubin (0.2-1.3) mg/dL AST (14-36) IU/L ALT (<35) IU/L Alkaline Phosphatase (38-126) U/L Total Protein (6.3-8.2) g/dL Albumin (3.5-5.0) g/dL Globulin (1.7-4.1) g/dL Albumin/Globulin Ratio (1.0-2.8) U Opiates 300ng/mL cut Negative (Negative) Ur Oxycodone Screen Negative (Negative) Urine Methadone Screen Negative (Negative) Ur Barbiturates Screen Negative (Negative) U Tricyclic Antidepress Negative (Negative) Ur Phencyclidine Scrn Negative (Negative) Ur Amphetamines Screen Negative (Negative) U Methamphetamines Scrn Negative (Negative) Ur MDMA Scrn (Ecstasy) Negative (Negative) U Benzodiazepines Scrn Positive H (Negative) Urine Cocaine Screen Negative (Negative) U Marijuana (THC) Screen Negative (Negative) Ethyl Alcohol ( - 10) mg/dL SARS-CoV-2 (PCR) (Negative) Point of Care Testing Test Results Negative Urine Dip Bedside Urine Glucose Negative Bedside Urine Bilirubin - Negative Bedside Urine Ketone +/- 5 Urine Specific [place] 1.025 Bedside Urine Occult Blood + Bedside Urine pH 6.0 Bedside Urine Protein + 30 Bedside Urine Urobilinogen - Negative Bedside Urine Nitrite - Negative Bedside Urine Leukocytes - Negative Esterase Discharge Plan Departure Patient Disposition: Xfer Inpatient Rehab Clinical Impression: Alcohol abuse Prescriptions: No Action fluoxetine 40 mg Capsule 40 mg PO QAM 0RF trazodone 50 mg tablet 50 mg PO BEDTIME 0RF quetiapine [Seroquel] 100 mg Tablet 100 mg PO BEDTIME 30 Days Qty: 30 0RF
--- NOTE | 2021-07-24 00:40 | PC.NURSE ---
provider medically cleared pt. Called [facility] to start process of [facility] at this time.
[2021-07-24] MEDS: PHENobarbital 65 MG/ML VIAL 260 MG IV ×2 (00:52→06:47)
[2021-07-24] MEDS: THIAMINE 200 MG in SODIUM CHLORIDE 0.9% 100 ML 408 ML IV (00:53)
[2021-07-24] MEDS: ONDANSETRON 4 MG/2 ML INJ IV ×3 (04:29→09:33)
[2021-07-24] MEDS: PHENobarbital 65 MG/ML VIAL 130 MG IV ×2 (04:34→09:34)
[2021-07-24] MEDS: PANTOPRAZOLE 40 MG VIAL IV (06:48)
--- NOTE | 2021-07-24 09:34 | PC.NURSE ---
Noted CIWA, additional phenobarbital given per Dr. Perez. Cleared for transfer via ALS. IV left in as long transport and unknown needs may develop. Pt is a/o x 4. States she feels improved. tolerating sips po fluids.
== END 2021-07-24 10:00 ==
PROVIDERS: Emergency Medicine; Emergency Provider Emergency Medicine
DX: F10.129 Alcohol abuse with intoxication, unspecified (principal); R45.851 Suicidal ideations; R03.0 Elevated blood-pressure reading, without diagnosis of hypertension; Y90.8 Blood alcohol level of 240 mg/100 ml or more; Z20.822 Contact with and (suspected) exposure to COVID-19
CPT/HCPCS: 36415; 80053; 80305; 80320; 81003; 81025; 85025; 87635; 93005; 96365; 96375; 96376; 99285; C9803; C9113; J2060; J2405; J2560